=== PATIENT | female | born 1970 | race Caucasian/White ===

== ENCOUNTER 2024-05-04 09:34 | Emergency (ER) | payer BC, MEDICARE, SELFPAY ==
[2024-05-04 09:41] VITALS: BP 113/70; PULSE 103; RESP 18; TEMP 37.3; O2SAT 94
--- NOTE | 2024-05-04 09:56 | ED_ITS ---
HPI - General Adult General Date Seen: 05/04/24 Chief complaint: Abdominal Pain Stated complaint: Abdominal pain, vomiting Time Seen by Provider: 05/04/24 09:41 History of Present Illness HPI narrative: Patient is a 54-year-old woman here with her parents for evaluation of vomiting and diarrhea. She had abrupt onset of stomach cramping last night associated with multiple episodes of vomiting and she says watery stools every 15 minutes or so. No bloody stools. She does not have focal abdominal pain, she does have some generalized back pain along with stomach cramping. She has history of hysterectomy, denies other abdominal surgeries. She has not traveled outside the [place] no recent antibiotics, no specific ill exposures. Vomiting has settled down but she continues to have diarrhea. No urinary symptoms. Related Data Home Medications ?Medication ?Instructions ?Recorded ?Confirmed amitriptyline 50 mg tablet 45 mg PO DAILY 05/04/24 05/04/24 omeprazole magnesium 20 mg 20 mg PO DAILY 05/04/24 05/04/24 tablet,delayed release (Prilosec OTC) Allergies Allergy/AdvReac Type Severity Reaction Status Date / Time azithromycin (From Zithromax) AdvReac Intermediate Nausea Verified 05/04/24 09:39 Review of Systems Status of ROS: Reports: 10 or more systems reviewed and unremarkable except as noted in History and below [facility] Social History Smoking Status: Never smoker Do you use any of these nicotine containing products: None Second hand tobacco smoke exposure: No How often do you have a drink containing alcohol: never AUDIT-C Alcohol total score: 0 Non-prescribed substance use: denies use Exam Narrative: Exam Narrative: Vital signs reviewed In general, alert, nontoxic manage woman. Head: Normocephalic, atraumatic. Eyes: Sclera clear. Pupils equal and reactive. ENT: Mucous membranes somewhat dry. Neck: Supple without adenopathy. Heart: Mildly tachycardic, regular. Lungs: Clear. No increased work of breathing, crackles or wheezes. Abdomen: Soft, nontender to palpation. No rebound guarding or rigidity. Extremities: Well perfused, pulses intact. No significant edema. Neurologic: Alert, conversant. Speech fluent, face symmetric. Moves all extremities equally. Skin: Warm, dry well perfused. Affect: Normal. Const: Vital Signs, click to edit/add: Vital Signs - 24 hr 05/04/24 09:41 05/04/24 10:20 05/04/24 10:51 Temperature 99.2 F Pulse Rate [Pulse Oximeter] 103 H 89 96 Respiratory Rate 18 18 16 Blood Pressure [Ri ght Upper Arm] 113/70 110/90 H 128/71 Pulse Oximetry 94 93 96 Oxygen Delivery Me thod Room Air Room Air Room Air Course Course ED Course: Overall presentation is most suggestive of a gastroenteritis, other diagnostic considerations would include surgical problem such as appendicitis, other gastrointestinal is causes such as colitis or diverticulitis, pancreatitis, cholecystitis, obstruction unlikely given copious diarrhea, C diff colitis, among others. Will hydrate with normal saline, give some Zofran and Toradol for symptomatic relief. Labs pending. Given benign abdominal exam, at this time I think I would defer imaging based on lab results. Labs are reassuring. Her white blood cell count is normal, CRP is 1.9, metabolic panel LFTs unremarkable, lipase 72, UA negative. She is feeling improved after therapies. No further vomiting. Has had a couple of loose stools while here. For now, I think it is reasonable to let her go home with treatment for presumed viral gastroenteritis. Reviewed reasons to return such as severe or focal abdominal pain, high fevers, bloody stools or other worsening. Clear liquids today, advance as able. Prescribe some Zofran for home use if needed. Trial of Imodium would be reasonable as well, discussed that diarrhea may persist for up to 7-10 days, if not improving beyond that char[place] uld be seen again. Vital Signs Vital signs: Initial Vital Signs Temperature 99.2 F 05/04/24 09:41 Temperature Source Temporal Artery Scan 05/04/24 09:41 Pulse Rate 103 H 05/04/24 09:41 Respiratory Rate 18 05/04/24 09:41 Blood Pressure 113/70 05/04/24 09:41 Blood Pressure Mean 84 05/04/24 09:41 Pulse Oximetry 94 05/04/24 09:41 Oxygen Delivery Method Room Air 05/04/24 09:41 Vital Signs Temperature 99.2 F 05/04/24 09:41 Pulse Rate 103 H 05/04/24 09:41 Respiratory Rate 18 05/04/24 09:41 Blood Pressure 113/70 02/18/25 09:41 Pulse Oximetry 94 05/04/24 09:41 Oxygen Delivery Method Room Air 05/04/24 09:41 Temperature 99.2 F 05/04/24 09:41 Pulse Rate 96 05/04/24 10:51 Respiratory Rate 16 05/04/24 10:51 Blood Pressure 128/71 05/04/24 10:51 Pulse Oximetry 96 05/04/24 10:51 Oxygen Delivery Method Room Air 05/04/24 10:51 Medications Administered Medications: Discontinued Medications Generic Name Dose Route Start Last Admin Trade Name Freq PRN Reason Stop Dose Admin Sodium Chloride 1,000 mls @ 1,000 mls/hr 05/04/24 10:00 05/04/24 10:06 0.9 % Sodium Chloride 1000 Ml IV 05/04/24 10:59 1,000 mls/hr .Q1H DOMINICK Administration Ketorolac Tromethamine 15 mg 05/04/24 09:55 05/04/24 10:06 Ketorolac 15 Mg/Ml Inj IVP 05/04/24 09:56 15 mg ONCE ONE Administration Ondansetron HCl 4 mg 05/04/24 09:55 05/04/24 10:07 Ondansetron 2 Mg/Ml Inj IVP 05/04/24 09:56 4 mg ONCE ONE Administration Medical Decision Making Lab Data Lab results reviewed: Yes I reviewed the patient's lab results Labs: Lab Results 05/04/24 05/04/24 Range/Units 10:05 10:45 WBC 9.73 (4.50-11.00) K/uL RBC 4.72 (4.00-5.20) m/uL Hgb 14.8 (12.0-16.0) gm/dL Hct 42.9 (33.0-51.0) % MCV 91 (80-100) fL MCH 31 (26-34) pg MCHC 35 (32-36) gm/dL RDW Coeff of Maninder 11.6 (11.5-15.5) % Plt Count 262 (140-440) K/uL Neut % (Auto) 95.1 H (42.0-72.0) % Lymph % (Auto) 2.9 L (20-44) % [place] % (Auto) 1.7 (0.0-11.0) % Eos % (Auto) 0.0 (0.0-7.0) % Baso % (Auto) 0.2 (0.0-3.0) % Neut # (Auto) 9.30 H (1.7-7.0) K/uL Lymph # (Auto) 0.30 L (0.90-2.90) K/uL [place] # (Auto) 0.20 (0.00-0.90) K/UL Eos # (Auto) 0.00 (0.00-0.50) K/uL Baso # (Auto) 0.02 (0.00-0.30) K/uL Abs Immat Gran (auto) 0.01 (0.00-0.30) K/uL Imm/Tot Granulo (auto) 0.1 % Sodium 139 (135-149) mmol/L Potassium 3.9 (3.6-5.1) mmol/L Chloride 104 (96-114) mmol/L Carbon Dioxide 24 (20-32) mmol/L Anion Gap 11 (7-15) mEq/L BUN 22 (7-30) mg/dL Creatinine 0.9 (0.5-1.5) mg/dL Estimated GFR 76 ml/min Glucose 136 H (60-115) mg/dL Calcium 9.7 (8.4-10.6) mg/dL Total Bilirubin 0.6 (0.1-1.5) mg/dL Direct Bilirubin 0.2 (0.0-0.5) mg/dL AST 24 (12-35) U/L ALT 27 (4-35) U/L Alkaline Phosphatase 58 (40-150) U/L C-Reactive Protein 1.9 H (0.5-1.0) mg/dL Total Protein 7.9 (6.0-8.3) g/dL Albumin 4.9 (3.3-5.0) g/dL Lipase 72 (23-300) U/L Urine Color Yellow (Yellow) Urine Appearance Clear (Clear) Urine pH 5.5 (5.0-8.5) Ur Specific [place] 1.020 (1.000-1.030) Urine Protein Trace A (Negative) Urine Glucose (UA) Negative (Negative) Urine Ketones Negative (Negative) Urine Blood Trace-intact A (Negative) Urine Nitrite Negative (Negative) Urine Bilirubin Negative (Negative) Urine Urobilinogen 0.2 (0.2-1.0) Ur Leukocyte Esterase Negative (Negative) Urine RBC 0-2 (0-2) Urine WBC 0-2 (0-5) Ur Squamous Epith Cells Few (None-Few) Amorphous Sediment Moderate A (None) Urine Bacteria Few A (None) Urine Mucus Moderate A (None) Discharge Plan Discharge Clinical Impression: Gastroenteritis Patient Disposition: Home, Self-Care Instructions: Acute Nausea and Vomiting (DC), Acute Diarrhea (ED) Additional Instructions: Zofran if needed for further nausea/vomiting. I would recommend sticking with clear liquids today, advance diet as able. You can try a few doses of Imodium for diarrhea as long as you are not having high fevers, bloody stools or significant abdominal pain. If diarrhea persists beyond 7-10 days you should be seen again either in the ER in your clinic for stool testing. Return any time if you are significantly worse, have severe or focal abdominal pain, bloody st ools, high fevers etcetera. Prescriptions: No Action amitriptyline 50 mg tablet 45 mg PO DAILY omeprazole magnesium [Prilosec OTC] 20 mg tablet,delayed release (DR/EC) 20 mg PO DAILY Follow Up/Referrals: Glenny Koroma MD [Primary Care Provider] - Stand Alone Forms: [employer] Info Instructions
[2024-05-04] MEDS: KETOROLAC 15 MG/ML inj IVP (10:06)
[2024-05-04] MEDS: 0.9 % SODIUM CHLORIDE 1000 ml 1,000 ML IV (10:06)
[2024-05-04] MEDS: ONDANSETRON 2 MG/ML inj 4 MG IVP (10:07)
[2024-05-04 10:20] VITALS: BP 110/90; PULSE 89; RESP 18; O2SAT 93
[2024-05-04 10:24] LABS: Basophils Absolute Auto 0.02 K/uL (0.00-0.30); Basophils Percent Auto 0.2 % (0.0-3.0); Hematocrit 42.9 % (33.0-51.0); Hemoglobin* 14.8 gm/dL (12.0-16.0); Immature Granulocytes Abs Auto 0.01 K/uL (0.00-0.30); Immature Granulocytes Pct Auto 0.1 %; Lymphocytes Percent Auto 2.9 % (20-44); Mean Corpuscular HGB Conc 35 gm/dL (32-36); Mean Corpuscular Hemoglobin 31 pg (26-34); Mean Corpuscular Volume 91 fL (80-100); Monocytes Percent Auto 1.7 % (0.0-11.0); Neutrophils Percent Auto 95.1 % (42.0-72.0); Platelet Count* 262 K/uL (140-440); RDW Coefficient of Variation % 11.6 % (11.5-15.5); Red Blood Count 4.72 m/uL (4.00-5.20); White Blood Count* 9.73 K/uL (4.50-11.00)
[2024-05-04 10:28] LABS: Slide Review Reflex No
[2024-05-04 10:43] LABS: Albumin* 4.9 g/dL (3.3-5.0); Chloride* 104 mmol/L (96-114)
[2024-05-04 10:44] LABS: Potassium* 3.9 mmol/L (3.6-5.1); Sodium* 139 mmol/L (135-149)
[2024-05-04 10:46] LABS: Creatinine* 0.9 mg/dL (0.5-1.5); Estimated Glomerular Filt Rate 76 ml/min
[2024-05-04 10:47] LABS: Alanine Aminotransferase* 27 U/L (4-35); Alkaline Phosphatase* 58 U/L (40-150); Anion Gap 11 mEq/L (7-15); Aspartate Amino Transferase* 24 U/L (12-35); Bilirubin Direct* 0.2 mg/dL (0.0-0.5); Bilirubin Total* 0.6 mg/dL (0.1-1.5); Blood Urea Nitrogen* 22 mg/dL (7-30); Calcium* 9.7 mg/dL (8.4-10.6); Carbon Dioxide* 24 mmol/L (20-32); Glucose* 136 mg/dL (60-115); Lipase* 72 U/L (23-300); Total Protein* 7.9 g/dL (6.0-8.3)
[2024-05-04 10:49] LABS: C Reactive Protein* 1.9 mg/dL (0.5-1.0)
[2024-05-04 10:51] VITALS: BP 128/71; PULSE 96; RESP 16; O2SAT 96
[2024-05-04 11:15] LABS: Appearance Urine Clear (Clear); Bilirubin Urine Negative (Negative); Blood Urine Trace-intact (Negative); Color Urine Yellow (Yellow); Glucose Urine Negative (Negative); Ketones Urine Negative (Negative); Leukocyte Esterase Urine Negative (Negative); Nitrite Urine Negative (Negative); Protein Urine Trace (Negative); Urobilinogen Urine 0.2 (0.2-1.0); pH Urine 5.5 (5.0-8.5)
[2024-05-04 11:30] LABS: RBC Urine 0-2 (0-2); Squamous Epithelial Cell Urine Few (None-Few); WBC Urine 0-2 (0-5)
[2024-05-04 11:31] LABS: Amorphous Sediment Urine Moderate; Bacteria Urine Few; Mucus Urine Moderate
== END 2024-05-04 12:06 | disposition home or self-care (01) ==
PROVIDERS: Emergency Provider Emergency Medicine; PCP Family Medicine
DX: K52.9 Noninfective gastroenteritis and colitis, unspecified (principal)
CPT/HCPCS: 36415; 80048; 80076; 81001; 83690; 85025; 86140; 87086; 96361; 96374; 96375; 99284; J1885; J2405; J7030

== ENCOUNTER 2024-12-30 20:25 | Emergency (ER) | payer BC, MEDICARE, SELFPAY ==
--- OUTSIDE RECORDS SUMMARY | 2021-05-03 11:02 | XMS_ITS | Continuity of Care Document ---
Author Organization [facility] Address [address] [place] [phone] Phone Care Team Providers Care Clay Modeler Name Role Phone Will MD LEON, Jama Unavailable Unavailabl e Advance Directives Directive Yes / No Effective Date File Name No Information Encounters Encounter Description Practice Location Reason(s) For Visit Diagnoses Date Provider Providers Copied on Encounter [facility], [address] [place] [address], [id number], [place] tel:[phone] [facility] No Information Will Jama. [address] [facility] [place], [id number], [place]. tel:[phone] Family History Family Member Type Diagnosis Age At Onset No Information Payers Payer name Insurance type Covered constitution party ID Authoriza tion(s) No Information Social History Type Description Quantity Date Captured Comments Sex Female Smoking Status No Information Chief Complaint And Reason For Visit No Information Reason For Referral Reason For Referral No Information History Of Present Illness Encounter Date Complaint History Of Prese nt Illness No Information Functional Status Date Functional Assessmen t No Information Instructions Date Instruction Additional Infor mation No Information Assessments Type Assessment Date No Information Patient Care Teams Name Effective Dates (start - stop) Status Members No Information
--- OUTSIDE RECORDS SUMMARY | 2021-05-03 11:02 | XMS_ITS | Continuity of Care Document ---
Author Organization [facility] Address [address] [place] [phone] Phone Care Team Providers Care Hand Collator Name Role Phone Will MD LEON, Jama Unavailable Unavailabl e Advance Directives Directive Yes / No Effective Date File Name No Information Encounters Encounter Description Practice Location Reason(s) For Visit Diagnoses Date Provider Providers Copied on Encounter [facility], [address] [place] [address], [id number], [place] tel:[phone] [facility] No Information Will Jama. [address] [facility] [place], [id number], [place]. tel:[phone] Family History Family Member Type Diagnosis Age At Onset No Information Payers Payer name Insurance type Covered libertarian ID Authoriza tion(s) No Information Social History [...]
--- OUTSIDE RECORDS SUMMARY | 2024-11-29 13:55 | XMS_ITS | Encounter Summary ---
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 Name Role Phone Amanda Leslie MD Primary Care Provider [phone] Reason for Visit * Procedure/Equipment (Routine) - Incomplete Specialty Diagnoses / Procedures Referred By Contac t Referred To Contact Diagnoses Neck pain Procedures XR Cervical Spine 2 Views Ann Marie Mandujano MD [address] [place] [address] Phone: tel: fax: Referral ID Status Reason Start Date Expiration Date V isits Requested Visits Authorized [id number] Incomplete 11/29/2024 02/28/2026 1 1 Encounter Details Date Type Department Care Team (Late st Contact Info) Description 11/29/2024 1:55 PM CDT Ancillary Procedure [facility] [address] [place], [place] [address] Ann Marie Mandujano MD [address] [place] [id number] Neck pain Social History Tobacco Use Types Packs/Day Years Used Date Smoking Tobacco: Every Day Cigarettes Smokeless Tobacco: Never Alcohol Use Standard Drinks/Week Comments Yes 0 (1 standard drink = 0.6 oz pur e alcohol) socially Comments Unknown Sex and Gender Information Value Date Recorded Sex Assigned at Not on file Legal Sex Female 7:00 AM CDT Gender Identity Not on file Sexual Orientation Not on file documented as of this encounter Plan of Treatment Upcoming Encounters Date Type Department Care Team (Latest Contact Info) Description 01/06/2025 5:00 PM CDT Appointment [facility] [place] [address] [place] [address] [place] [address] [place] [address] 01/10/2025 1:00 PM CDT Appointment [facility] [place] [address] [place] [address] Ann Marie Mandujano MD [address] [place] [address] [place] [id number] 01/10/2025 3:00 PM CDT Appointment [facility] [place] [address] [place] [address] [place] [address] [address] [place] [address] 01/13/2025 5:00 PM CDT Appointment [facility] [place] [address] [place] [address] [place] [address] [place] [address] 02/08/2025 12:25 PM [facility] Hospital Encounter [facility] [address] [place] [address] Juan Shelley MD [address] [place] [address] [place] [address] 02/08/2025 12:25 PM [facility] - 02/08/2025 2:20 PM [facility] Surgery [facility] [address] [place] [address] Juan Shelley MD [address] [place] [address] [place] [address] Shoulder Arthroscopic Rotator Cuff Repair 02/15/2025 11:30 AM [facility] Appointment [facility] [place] [address] [place] [address] [place] [address] [address] [place] [address] 02/17/2025 2:45 PM [facility] Appointment [facility] [place] [address] [place] [address] [place] [address] [address] [place] [address] 02/18/2025 2:40 PM [facility] Appointment [facility] Orthopedic [facility] [address] [place] [address] Juan Shelley MD [address] [place] [address] 02/21/2025 3:00 PM [facility] Appointment [facility] [place] [address] [place] [address] [place] [address] [address] [place] [address] 02/24/2025 2:45 PM [facility] Appointment [facility] [place] [address] [place] [address] [place] [address] [address] [place] [address] 02/28/2025 3:00 PM [facility] Appointment [facility] [place] [address] [place] [address] [place] [address] [address] [place] [address] 03/03/2025 2:45 PM [facility] Appointment [facility] [place] [address] [place] [address] [place] [address] [address] [place] [address] 03/07/2025 3:00 PM [facility] Appointment [facility] [place] [address] [place] [address] [place] [address] [address] [address] 03/11/2025 3:00 PM [facility] Appointment [facility] [address] [address] [place] [address] [place] [address] 03/14/2025 3:00 PM [facility] Appointment [facility] [place] [address] [place] [address] [place] [address] [address] [place] [address] 03/18/2025 3:15 PM [facility] Appointment [facility] [place] [address] [place] [address] [place] [address] [place] [place] [address] 03/21/2025 3:00 PM [facility] Appointment [facility] [address] [address] [place] [address] [place] [address] 03/24/2025 2:45 PM [facility] Appointment [facility] [place] [address] [place] [address] [place] [address] [place] [address] 03/25/2025 2:40 PM [facility] Appointment [facility] Orthopedic [facility] [address] [place] [address] Juan Shelley MD [address] [place] [address] [place] [id number] 03/28/2025 3:00 PM [facility] Appointment [facility] [place] [address] [place] [address] [place] [address] [place] [address] 04/04/2025 3:00 PM [facility] Appointment [facility] [place] [address] [place] [address] [place] [address] [place] [address] 04/11/2025 3:00 PM [facility] Appointment [facility] [place] [address] [place] [address] [place] [address] [place] [address] 06/08/2025 2:40 PM CDT Appointment [facility] Orthopedic [facility] [address] [place] [address] Juan Shelley MD [address] [place] [address] Scheduled Procedures Name Priority Associated Diagnoses Date/Ti me ARTHROSCOPIC REPAIR ROTATOR CUFF SHOULDER SMALL Traumatic complete tear of right rotator cuff, initial encounter 02/08/2025 12:25 PM [employer] documented as of this encounter Procedures Procedure Name Priority Date/Time Associated Diagnosis Comments XR CERVICAL SPINE 2 VIEWS Routine 11/29/2024 2:03 PM CDT Neck pain documented in this encounter Results * XR Cervical Spine 2 Views (11/29/2024 2:03 PM CDT) Anatomical Region Laterality Modality Spine, C-Spine, Neck Digital Rad iography Narrative 11/29/2024 2:08 PM CDT EXAM: XR CERVICAL SPINE 2 VIEWS INDICATION: pain COMPARISON: None. FINDINGS: Cervical vertebral heights are preserved. No significant spondylolisthesis. Intervertebral disc heights also appear largely preserved. Mild multilevel facet arthropathy. Prevertebral soft tissues are grossly unremarkable. Signed by: Phil Boudreaux 11/29/2024 2:08 PM Procedure Note Phil Boudreaux MD - 11/29/2024 EXAM: XR CERVICAL SPINE 2 VIEWS INDICATION: pain COMPARISON: None. FINDINGS: Cervical vertebral heights are preserved. No significantspondylolisthesis. Intervertebral disc heights also appear largelypreserved. Mild multilevel facet arthropathy. Prevertebral soft tissuesare grossly unremarkable. Signed by: Phil Boudreaux 11/29/2024 2:08 PM Ann Marie Mandujano MD RAD GD Final Result documented in this encounter Visit Diagnoses Diagnosis Neck pain Cervicalgia Traumatic complete tear of right rotator cuff, initial encounter documented in this encounter Care Teams [employer] Ironworker Relationship Specialty Start Date End Date Amanda Leslie MD [address] [phone] PCP - General 05/04/15 documented as of this encounter
--- OUTSIDE RECORDS SUMMARY | 2024-11-29 14:00 | XMS_ITS | Encounter Summary ---
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 You can quickly schedule your appointment by signing in to your online account at [email or web address] or through the text message you may have received. You can also make an appointment by calling [phone]. We suggest you call your health insurance company about your coverage and benefits for this appointment. Question Answer Appointment Urgency? Non-Urgent Requested Services Evaluate and treat Reason for Visit General Physical Therapy May use saline for irrigation or cleansing Yes dexamethasone use Yes May check glucose per protocol (see policy link below) or if patient has symptoms? Yes Comments Cervical facet arthropathy Upper trap muscle spasm Rotator cuff Trial dry needling * Procedure/Equipment (Routine) - Incomplete Specialty Diagnoses / Procedures Referred By Contac t Referred To Contact Diagnoses Neck pain Procedures MR Shoulder Rt WO IV Cont Ann Marie Quintana MD [address] [place] [address] Phone: tel: fax: Referral ID Status Reason Start Date Expiration Date V isits Requested Visits Authorized [id number] Incomplete 11/29/2024 02/28/2026 1 1 * Procedure/Equipment (Routine) - Incomplete Specialty Diagnoses / Procedures Referred By Contac t Referred To Contact Diagnoses Neck pain Procedures MR Cervical Spine WO IV Cont Ann Marie Quintana MD [address] [place] [address] Phone: tel: fax: Referral ID Status Reason Start Date Expiration Date V isits Requested Visits Authorized [id number] Incomplete 11/29/2024 02/28/2026 1 1 * Procedure/Equipment (Routine) - Incomplete Specialty Diagnoses / Procedures Referred By Contac t Referred To Contact Diagnoses Neck pain Procedures XR Cervical Spine 2 Views Ann Marie Quintana MD [address] [place] [address] Phone: tel: fax: Referral ID Status Reason Start Date Expiration Date V isits Requested Visits Authorized [id number] Incomplete 11/29/2024 02/28/2026 1 1 Reason for Visit * Reason Comments Neck Pain Encounter Details Date Type Department Care Team (Late st Contact Info) Description 11/29/2024 2:00 PM CDT Office Visit [facility] [address] [place] [id number] Ann Marie Quintana MD [address] [place] [address] [place] [id number] Neck pain (Primary Dx) Social History Tobacco Use Types Packs/Day Years [...] on file documented as of this encounter Patient Instructions * Patient Instructions* Cira Mcnulty ATC - 11/29/2024 2:[address] Ann Marie Quintana MD Sports Medicine & Pediatric Sports Medicine Medication Requests: Prescriptions are not filled on weekends or on weekdays after 3:00 PM Trial magnesium glycinate 400mg at bed time Physical Therapy at [facility]/ -Call [phone] to schedule your appointment. -Trial Dry needling Follow up for MRI results documented in this encounter Progress Notes * Ann Marie Quintana MD - 11/29/2024 12:00 AM CDT Images from the original note were not included. NAME: DARIANA LUNA CSN: [id number] CLINIC NOTE DATE OF SERVICE: 11/29/2024 : 1970 CHIEF COMPLAINT: Neck and shoulder pain. HISTORY OF PRESENT ILLNESS: This 54-year-old female is here today with her sister for further evaluation of worsening neck and right shoulder pain for the last few weeks. There was no recent injury, but she does note doing a lot more physical work, moving cement blocks for retaining wall and pushing and ineffective wheelbarrow. She localizes pain along the base of the skull and radiating into theupper trapezius bilaterally. She says that it is not so much pain, but rather tightness. Because ofthis, she then also feels like she is experiencing more lightheadedness and dizziness. She is also feeling extremely fatigued. She attributes this to an exacerbation of her postconcussive symptoms. She saw her primary physician recently, who recommended a muscle relaxant, but she does not want to take this because she is concerned it would make her even more lightheaded as she tends to be sensitive to some medications. She says that her primary thought it could be a sinus infection, but Desireedoes not think so. She feels like it is more related to her underlying neck and shoulder problems and wants to get to the root of the problem. It seems worse when she is standing and moving around and when she flexes her head forward. She is also noticing more right shoulder pain localized over theposterior aspect as well as along the periscapular area. She notes pain when abducting her arm past90 degrees. There have been 2 episodes, where she had a near syncopal episode and fell to the floor. She says she feels woozy and constantly tired and that her neck feels stuck and restricted. There is no radiating pain down the arms and no associated numbness or tingling, though she does endorse some pain along the right thumb CMC joint or first extensor compartment. She has tried heat, ice, and [id number] pain medication. PHYSICAL EXAMINATION: GENERAL: Alert, in no apparent distress. MUSCULOSKELETAL: Neck: Forward head posture, full range ofmotion, but pain with forward flexion and at end ranges of motion, diffuse tenderness to palpation along midline cervical spine and mildly hypertonic upper trapezius. Spurling negative. Right shoulder: Full range of motion. Cuff strength intact, but pain with resisted testing of the supraspinatus. Tenderness to palpation of the proximal biceps. Speed's positive. Neer negative. Umana positive. SKIN: No rash. NEURO: Distal neurovascular exam normal including strength and sensation to light touch. IMAGING: Two views of the cervical spine obtained today and independently reviewed by me reveals: Cervical vertebral heights are preserved. No significant spondylolisthesis. Intervertebral disc heights also appear largely preserved. Mild multilevel facet arthropathy. Prevertebral soft tissues aregrossly unremarkable. MRI of the right shoulder previously obtained on 01/17/2020 reviewed by me again today reveals: MR Shoulder Rt WO IV Cont Details Reading Physician Reading Date Result Priority Juan Lee MD [phone] 01/17/2020 Routine Narrative & Impression IMPRESSION TECHNIQUE: Routine MRI of the right shoulder was performed without contrast. COMPARISON: 01/04/2020 radiograph FINDINGS: CORACOACROMIAL ARCH/AC JOINT: Mild degenerative arthrosis of the acromioclavicular joint. Type III acromion. There is no significant thickening of the coracoacromial or coracohumeral ligaments. Thereis no significant narrowing of the subacromial outlet or coracohumeral distance. ROTATOR CUFF: Supraspinatus tendinosis with tearing of its mid and posterior tendon insertion likely represents non-retracted full-thickness tearing measuring 1.1 cm anterior to posterior versus high-grade near full-thickness partial bursal surface tearing with very thin intact articular surface fibers (series 8, images 16 and 17). Infraspinatus, teres minor and subscapularis tendons are otherwise intact. There is no atrophy of the rotator cuff muscles. SUBACROMIAL/SUBDELTOID BURSA: Small to moderate amount of fluid. GLENOHUMERAL JOINT: There is no significant degenerative arthritis or focal cartilage defect. Thereis no significant joint effusion. No osteocartilaginous bodies are identified. LONG HEAD OF THE BICEPS TENDON/GLENOID LABRUM: Possible interstitial partial tearing of the long head biceps tendon in the bicipital groove without full- thickness tear. The biceps-labral anchor is intact. There is no evidence of labral tear. MARROW AND SOFT TISSUES: There is no abnormal signal. There is no soft tissue mass. IMPRESSION: 1. Supraspinatus tendinosis with tearing of its mid and posterior tendon insertion likely representing non-retracted full-thickness insertional tearing measuring 1.1 cm anterior to posterior but high-grade near full-thickness partial bursal surface tearing with very thin intact articular surface fibers cannot be excluded. 2. Small to moderate amount of fluid in the subacromial/subdeltoid bursa is nonspecific and may be seen with mild bursitis versus sequela of a full- thickness rotator cuff tendon tear. 3. Possible interstitial partial tearing of the long head biceps tendon without full-thickness tear. 4. Mild degenerative arthrosis of the acromioclavicular joint. ASSESSMENT: 1. New neck pain with cervical facet arthropathy. 2. Upper trapezius muscle spasm. 3. Right rotator cuff tendinopathy and partial tendon tearing. PLAN: 1. Discussed diagnosis and all treatment options. 2. Referral to Physical Therapy. She may benefit from dry needling and manual therapy. 3. Recommended obtaining an MRI of the cervical spine and an MRI of the right shoulder for further evaluation. Depending on findings, can consider injection options or surgical consultation if appropriate. 4. We also discussed the benefit of a muscle relaxant, but she is hesitant to try this as she fearsit might make her even more woozy. Physical therapy could help with any vestibular function that she is having that might be contributing to her symptoms, but I also asked that she follow up as scheduled with her primary to explore other cardiogenic or neurogenic etiologies for her near syncope anddizziness. Dariana feels that if she gets to the root of the problem of her neck and shoulder pain that the dizziness will improve. Instead, she might try some magnesium glycinate 400 mg at bedtime. We discussed that this may cause some drowsiness and looser stools, but overall should be well tolerated and might be helpful. 5. Continue activity as tolerated and symptomatic care measures as needed. ANN MARIE QUINTANA MD HLB/AQS /[id number] documented in this encounter Plan of Treatment Upcoming Encounters Date Type Department Care Team (Latest Contact Info) Description 01/06/2025 5:[address] [facility] [place] [address] [facility] [place] [address] [place] [address] [place] [address] 01/10/2025 1:[address] [facility] [place] [address] [place] [address] Ann Marie Quintana MD [address] [place] [address] [place] [address] 01/10/2025 3:00 PM CDT Appointment [facility] [address] [place] [address] [place] [address] [place] [address] 01/13/2025 5:00 PM CDT Appointment [facility] [address] [place] [address] [place] [address] [place] [id number] 02/08/2025 12:25 PM MANAGER CONFIGURATION Hospital Encounter [facility] [address] [place] [address] Juan Shelley MD [address] [place] [address] [place] [id number] 02/08/2025 12:25 PM MANAGER CONFIGURATION - 02/08/2025 2:20 PM MANAGER CONFIGURATION Surgery [facility] [address] [address] Juan Shelley MD [address] [place] [address] [place] [address] Shoulder Arthroscopic Rotator Cuff Repair 02/15/2025 11:30 AM MANAGER CONFIGURATION Appointment [facility] [address] [place] [address] [place] [address] [place] [address] 02/17/2025 2:45 PM MANAGER CONFIGURATION Appointment [facility] [address] [place] [address] [place] [address] [place] [address] 02/18/2025 2:40 PM MANAGER CONFIGURATION Appointment [facility] Orthopedic [facility] [address] [place] [address] Juan Shelley MD [address] [place] [address] 02/21/2025 3:00 PM MANAGER CONFIGURATION Appointment [facility] [address] [place] [address] [place] [address] [place] [address] 02/24/2025 2:45 PM MANAGER CONFIGURATION Appointment [facility] [address] [place] [address] [place] [address] [place] [address] 02/28/2025 3:00 PM MANAGER CONFIGURATION Appointment [facility] [id number] [place] [address] [place] [address] [place] [address] 03/03/2025 2:45 PM MANAGER CONFIGURATION Appointment [facility] [address] [place] [address] [place] [address] [place] [address] 03/07/2025 3:00 PM MANAGER CONFIGURATION Appointment [facility] [address] [place] [address] [place] [address] [place] [address] 03/11/2025 3:00 PM MANAGER CONFIGURATION Appointment [facility] [address] [place] [address] [place] [address] [place] [address] 03/14/2025 3:00 PM MANAGER CONFIGURATION Appointment [facility] [address] [place] [address] [place] [address] [place] [address] 03/18/2025 3:15 PM MANAGER CONFIGURATION Appointment [facility] [address] [place] [address] [place] [address] [place] [address] 03/21/2025 3:00 PM MANAGER CONFIGURATION Appointment [facility] [address] [place] [address] [place] [address] [place] [address] 03/24/2025 2:45 PM MANAGER CONFIGURATION Appointment [facility] [address] [place] [address] [place] [address] [place] [address] 03/25/2025 2:40 PM MANAGER CONFIGURATION Appointment [facility] Orthopedic [address] [address] Juan Shelley MD [address] [place] [address] 03/28/2025 3:00 PM MANAGER CONFIGURATION Appointment [facility] [address] [place] [address] [place] [address] [place] [address] 04/04/2025 3:00 PM MANAGER CONFIGURATION Appointment [facility] [address] [place] [address] [place] [address] [place] [address] 04/11/2025 3:00 PM MANAGER CONFIGURATION Appointment [facility] [address] [place] [address] [place] [address] [place] [address] 06/08/2025 2:[address] [facility] [place] [address] [place] [address] [place] [address] Juan Shelley MD [address] [place] [address] Scheduled Orders Name Type Priority Associated Diagnoses Orde r Schedule MR Cervical Spine WO IV Cont Imaging New Routine Neck pain Expected: 11/29/2024 (Approximate), Expires: 11/29/2025 MR Shoulder Rt WO IV Cont Imaging New Routine Neck pain Expected: 11/29/2024 (Approximate), Expires: 11/29/2025 Scheduled Procedures Name Priority Associated Diagnoses Date/Ti me ARTHROSCOPIC REPAIR ROTATOR CUFF SHOULDER SMALL Traumatic complete tear of right rotator cuff, initial encounter 02/08/2025 12:25 PM MANAGER CONFIGURATION Scheduled Referrals Name Type Priority Associated Diagnoses Orde r Schedule Physical Therapy Referral Routine Neck pain Ordered: 11/29/2024 documented as of this encounter Results * XR Cervical Spine [...] Signed by: Phil Boudreaux 11/29/2024 2:08 PM us Ann Marie Quintana MD RAD GD Final Result documented in this encounter Visit Diagnoses Diagnosis Neck pain- Primary Cervicalgia Neck pain Cervicalgia Traumatic complete tear of right rotator cuff, initial encounter documented in this encounter Care Teams Wood Casket Assembler Relationship Specialty Start Date End Date Amanda Leslie MD [address] [address] PCP - General 05/04/15 documented as of this encounter
--- OUTSIDE RECORDS SUMMARY | 2024-11-30 11:15 | XMS_ITS | Encounter Summary ---
[facility] Organization [facility] Address [address] [place] [address] Care Team Providers Care Concrete Batcher Name Role Phone Amanda Leslie MD Primary Care Provider [phone] Reason for Visit * Reason Comments Spine Cervical Encounter Details Date Type Department Care Team (Late st Contact Info) Description 11/30/2024 11:15 AM CDT Therapy [facility] [address] [address] [place] [address] [place] [address] Cervicalgia (Primary Dx) Social History Tobacco Use Types [...] on file documented as of this encounter Progress Notes * Jose A Doyle, PT - 11/30/2024 11:15 AM CDT Physical Therapy Evaluation Visit: 1 Payor: BCBS / Plan: [place]BS [place] / Product Type: Commercial / Visit Number: 1 Visit Diagnosis: Diagnosis and Associated Orders ICD-10-CM 1. Cervicalgia M54.2 Referring Diagnosis: Cervicalgia Date of Onset/Referral: Mid to late October 2024 Precautions/Barriers/Pertinent Medical History: see PMH Orders: Eval and treat SUBJECTIVE Reason for Visit: The patient is a very pleasant 54 y/o female referred to PT for neck pain . The patient notes onset of symptoms that began over the last 3 weeks unsure of etiology, but possibly from too much heavy lifting, such as 12x12 patio pavers and landscaping. She notes frontal SORTO pressure that is constant in nature. She notes issues with her vestibular system that affects her walking andbalance and the neck issues are intensifying those symptoms. PMH: see attachments CLOF: p! and/or difficulty w/ driving, reading, rec activities, lifting PLOF: Independent with ADLs, able to walk community distances Medications: Medication list has been reviewed. 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 Observation: normal, received sitting in NAD, AxOx3 Screening: Negative for referred pain patterns from shoulder or TMJ area Cervical ROM: Flexion 80 Extension 50 Sidebending Right 30 Sidebending Left 30 Rotation Right 80 Rotation Left 80 Thoracolumbar ROM: (*with pain) Flexion 30 Extension 20 Sidebending Right 30 Sidebending Left 30 Rotation Right 30 Rotation Left 30 * = pain Cervical Strength: Supine neck flexion (tuck and lift) endurance test: nt seconds Neurological Screen: Negative for dermatomes, bicipital reflex t and C4 weakness myotomes Flexibility: WNL Joint mobility: WFL for upper mid and lower cervical segments Palpation: Tenderness to: bilat. UT and suboccipitals Proprioception: Not tested Special Tests: Distraction: Negative Spurling A: Negative Spurling B: Negative TODAY'S INTERVENTION/CHARGES: Physical Therapy Evaluation was completed and the patient was educated on the condition, planned therapy intervention and expectations from treatment. Manual Therapy performed to reduce pain and improve tissue and joint mobility Ther Act performed to improve tolerance, performance, and mechanics with functional activities, improve ADLs, compensatory training, safety procedures, and instructions in use of assistive technologydevices/adaptive equipment along with improve knowledge of safety and HEP compliance and efficiency Neuro Re-ed performed to improve balance, coordination, proprioception, muscle control/activation Ther Ex performed to improve ROM, flexibility, strength, and endurance Therapeutic exercise x 8 minutes: Educated and partial performance in [employer] Regimen below Manual therapy x 8 minutes: + SOR, cervical distraction gentle, STM to bilat. UT Dry Needlin minutes Pt treatment also included use of dry needling to assist with resolution of impairments as listed in objective findings and meeting patient goals with the intent to Decrease Pain, Improve Flexibility, and Well tolerated. Patient was screened for precautions and contraindications. Procedure, risks, and benefits were all explained. Skin was intact pre-treatment and prepped appropriately for clean procedure. Verbal consent and PAW were signed prior to intervention. Location Targeted: bilat. UT/back Muscles targeted: bilat. UT and suboccipitals bilaterally E-Stim used: no Other interventions details: no Response to Treatment: RESPONSE: Decrease Pain and Well tolerated Pt was advised that if feelings of light headedness, difficulty breathing, chest pain, or any otherconcerning symptoms after treatment, to go to ER. Education/Handouts: see below Provided instruction for the exercises noted and performed in clinic with verbal and tactile cues for proper technique. Handouts were issued for exercise in the HEP and reviewed with repetitions, sets, and frequency. Educated patient on rationale for selected exercises. Patient questions were addressed. Home Program: Access Code: [email or web address] URL: [email or web address] Date: 11/30/2024 Prepared by: Meagan Exercises - Shoulder Rolls in Sitting - 1 x daily - 5 x weekly - 2 sets - 10 reps - 5-8 hold - Seated Cervical Rotation AROM - 1 x daily - 5 x weekly - 2 sets - 10 reps - 5- 8 hold - Seated Scapular Retraction - 1 x daily - 5 x weekly - 2 sets - 10 reps - 5-8 hold - Seated Chin Tuck with Neck Elongation - 1 x daily - 5 x weekly - 2 sets - 10 reps - 5-8 hold Timed Charges (Minutes): Timed Charges (Minutes): 29537 - Therapeutic Exercise: 8 06510 - Manual Therapy: 8 Timed Code Treatment Minutes: 16 Total Treatment Minutes: 45 Timed Code Treatment Minutes: 16 Total Treatment Minutes: 45 ASSESSMENT Therapist Impression/Summary: The patient is a very pleasant 54 y/o female diagnosed with cervicalgia. Overall patient prognosis is good potential for achieving LTGs. Patient deficits include, but not limited to: pain, ROM, Strength, balance, flexibility all of which contribute to functional deficits and justify the need for skilled rehabilitation. The treatment plan is too complex to be performed by the patient and/or caregiver for the following reasons: skilled manual therapy, exercise and ADL instruction requiring the supervision, knowledge, skills and expertise of a Physical Therapist. The patient's services are medically necessary. Accepted Practice Standards: Amount, duration, frequency and type of treatment is reasonable under accepted standards of practice. Informed consent: Patient was informed of the recommended treatment, diagnosis, material risks, alternative treatments, treatment goals and the patient did give informed consent to the treatment outlined. All questions wereaddressed and answered to the patient's satisfaction. Prognosis: very good Complexity: Based on the following:?no personal factors or comorbidities that impact care (Low), 1-2 elements addressed from body structures and function - see objective section and functional limitations (Low), and stable and uncomplicated presentation (Low), this is a Low Complexity evaluation. Goals/Functional Outcomes (to be met by end of therapy, noted in PLAN below): Patient will be independent with home exercise program for improved self management. Patient will improve Neck Disability Index score from 46% to less than 10% (DUC -10%, lower score indicates less disability) indicating improvement in general function and decreased symptoms. Patient Independent w/ HEP. Patient increase 1/2 to 1 MMT grade of DNF for improved spinal stability for desk work. Patient increase 1 MMT grade of scapular stabilizers for improved postural stability while performing dynamic ADLs. Patient reduce pain by 50% to improve sleep and tolerance for static postures. Patient reduce pain by 75-100% to improve tolerance for dynamic postures PLAN Recommendations/Plan for Next Visit: f/u on HEP, and response to FDN PT Frequency/Duration: 1-2x/week for 12 visits Planned Intervention/Education: Therapeutic Activity (38119), Neuromuscular Re-Education (91867), Therapeutic Exercise (47244), Manual Therapy (56559), Self-Care/Home Management (55389) Informed Consent: Risks, benefits and alternatives to treatment have been explained. Patient and/orfamily in agreement with care plan. The clinician's signature certifies medical necessity for the treatment plan above. [1] No past medical history on file. [2] Past Surgical History: Procedure Laterality Date ANTERIOR CRUCIATE LIGAMENT REPAIR HYSTERECTOMY KNEE SURGERY TOE SURGERY Cosigned by Ann Marie Mandujano MD at 11/30/2024 12:38 PM CDT documented in this encounter Plan of Treatment Upcoming Encounters Date Type Department Care Team (Latest Contact Info) Description 01/06/2025 5:00 PM CDT Appointment [facility] [address] [address] [place] [address] [place] [address] 01/10/2025 1:00 PM CDT Appointment [facility] [place] [address] [place] [address] Ann Marie Mandujano MD [address] [facility] [place]ETH [place] [address] 01/10/2025 3:00 PM CDT Appointment [facility] [place] [address] [place] [address] [place] [address] [place] [address] 01/13/2025 5:00 PM CDT Appointment [facility] [place] [address] [place] [address] [place] [address] [address] [place] [address] 02/08/2025 12:25 PM SHEET METAL OPERATOR Hospital Encounter [facility] [address] [place] [address] Juan Shelley MD [address] [place] [address] [place] [address] 02/08/2025 12:25 PM SHEET METAL OPERATOR - 02/08/2025 2:20 PM SHEET METAL OPERATOR Surgery [facility] [address] [place] [address] Juan Shelley MD [address] [place] [address] [place] [id number] Shoulder Arthroscopic Rotator Cuff Repair 02/15/2025 11:30 AM SHEET METAL OPERATOR Appointment [facility] [place] [address] [place] [address] [place] [address] [place] [address] 02/17/2025 2:45 PM SHEET METAL OPERATOR Appointment [facility] [place] [address] [place] [address] [place] [address] [address] [place] [address] 02/18/2025 2:40 PM SHEET METAL OPERATOR Appointment [facility] [place] [address] [place] [address] Juan Shelley MD [address] [place] [address] [place] [address] 02/21/2025 3:00 PM SHEET METAL OPERATOR Appointment [facility] [place] [address] [place] [address] [place] [address] [place] [address] 02/24/2025 2:45 PM SHEET METAL OPERATOR Appointment [facility] [address] [address] [place] [address] [place] [address] 02/28/2025 3:00 PM SHEET METAL OPERATOR Appointment [facility] [address] [address] [place] [address] [place] [address] 03/03/2025 2:45 PM SHEET METAL OPERATOR Appointment [facility] [address] [address] [place] [address] [place] [address] 03/07/2025 3:00 PM SHEET METAL OPERATOR [facility]ointment [facility] [address] [address] [place] [address] [place] [address] 03/11/2025 3:00 PM SHEET METAL OPERATOR Appointment [facility] [address] [address] [place] [address] [address] [place] [place] [address] 03/14/2025 3:00 PM SHEET METAL OPERATOR Appointment [facility] [address] [address] [place] [address] [address] [place] [address] 03/18/2025 3:15 PM SHEET METAL OPERATOR Appointment [facility] [place] [address] [place] [address] [place] [address] [address] [place] [address] 03/21/2025 3:00 PM SHEET METAL OPERATOR Appointment [facility] [address] [place] [address] [place] [address] [address] [place] [address] 03/24/2025 2:45 PM SHEET METAL OPERATOR Appointment [facility] [address] [place] [address] [place] [address] [address] [place] [address] 03/25/2025 2:40 PM SHEET METAL OPERATOR Appointment [facility] Orthopedic [facility] [address] [place] [address] Juan Shelley MD [address] [facility] [place] [address] 03/28/2025 3:00 PM SHEET METAL OPERATOR Appointment [facility] [place] [address] [place] [address] [place] [address] [address] [place] [address] 04/04/2025 3:00 PM SHEET METAL OPERATOR Appointment [facility] [place] [address] [place] [address] [place] [address] [address] [place] [address] 04/11/2025 3:00 PM SHEET METAL OPERATOR Appointment [facility] [place] [address] [facility] LI[place] [address] [place] [address] [address] [place] [address] 06/08/2025 2:40 PM CDT Appointment [facility] [place] [address] [place] [address] Juan Shelley MD [address] [facility] [place] [address] Scheduled Procedures Name Priority Associated Diagnoses Date/Ti me ARTHROSCOPIC REPAIR ROTATOR CUFF SHOULDER SMALL Traumatic complete tear of right rotator cuff, initial encounter 02/08/2025 12:25 PM SHEET METAL OPERATOR documented as of this encounter Visit Diagnoses Diagnosis Cervicalgia- Primary Traumatic complete tear of right rotator cuff, initial encounter documented in this encounter Care Teams Concrete Batcher Relationship Specialty Start Date End Date Amanda Leslie MD [address] [phone] PCP - General 05/04/15 documented as of this encounter
--- OUTSIDE RECORDS SUMMARY | 2024-12-04 | XMS_ITS | Encounter Summary ---
Author Organization [facility] Address [address] [address] Care Team Providers Care Senior Director Insight Name Role Phone Amanda Leslie MD Primary Care Provider [phone] Encounter Details Date Type Department Care Team (Late st Contact Info) Description 12/04/2024 Ancillary Procedure Radiology PACS [address] [place] [address] Provider, Foreign Images [address] [place] [address] Social History Tobacco Use Types Packs/Day Years [...] 5:00 PM CDT Appointment [facility] [place] [address] [facility] [place] [address] [place] [address] [place] [id number] 01/10/2025 1:00 PM CDT Appointment [facility] [place] [address] [place], [place] [phone] Ann Marie Mandujano MD [address] [facility] [place] [address] 01/10/2025 3:00 PM CDT Appointment [facility] [place] [address] [place] [address] [place] [address] [address] [place] [address] 01/13/2025 5:00 PM CDT Appointment [facility] [place] [address] [place] [address] [place] [address] [place] [address] 02/08/2025 12:25 PM AUTOMATIC SPOOLER OPERATOR Hospital Encounter [facility] [address] [place] [address] Juan Shelley MD [address] [facility] [place] [address] 02/08/2025 12:25 PM AUTOMATIC SPOOLER OPERATOR - 02/08/2025 2:20 PM AUTOMATIC SPOOLER OPERATOR Surgery [facility] [address] [place] [address] Juan Shelley MD [address] [facility] [place] [address] Shoulder Arthroscopic Rotator Cuff Repair 02/15/2025 11:30 AM AUTOMATIC SPOOLER OPERATOR Appointment [facility] [place] [address] [place] [address] [place] [address] [address] [place] [address] 02/17/2025 2:45 PM AUTOMATIC SPOOLER OPERATOR Appointment [facility] [place] [address] [place] [address] [place] [address] [address] [place] [address] 02/18/2025 2:40 PM AUTOMATIC SPOOLER OPERATOR Appointment [facility] [place] [address] [facility] [address] Juan Shelley MD [address] [facility] [place] [address] 02/21/2025 3:00 PM AUTOMATIC SPOOLER OPERATOR Appointment [facility] [place] [address] [place] [address] [place] [address] [address] [place] [address] 02/24/2025 2:45 PM AUTOMATIC SPOOLER OPERATOR Appointment [facility] [place] [address] [place] [address] [place] [address] [address] [place] [address] 02/28/2025 3:00 PM AUTOMATIC SPOOLER OPERATOR Appointment [facility] [place] [address] [place] [address] [place] [address] [address] [place] [address] 03/03/2025 2:45 PM AUTOMATIC SPOOLER OPERATOR Appointment [facility] [place] [address] [place] [address] [place] [address] [address] [place] [address] 03/07/2025 3:00 PM AUTOMATIC SPOOLER OPERATOR Appointment [facility] [place] [address] [place] [address] [place] [address] [address] [place] [address] 03/11/2025 3:00 PM AUTOMATIC SPOOLER OPERATOR Appointment [facility] [place] [address] [place] [address] [place] [address] [address] [place] [address] 03/14/2025 3:00 PM AUTOMATIC SPOOLER OPERATOR Appointment [facility] [place] [address] [place] [address] [place] [address] [address] [place] [address] 03/18/2025 3:15 PM AUTOMATIC SPOOLER OPERATOR Appointment [facility] [place] [address] [place] [address] [place] [address] [address] [place] [address] 03/21/2025 3:00 PM AUTOMATIC SPOOLER OPERATOR Appointment [facility] [place] [address] [place] [address] [place] [address] [address] [place] [address] 03/24/2025 2:45 PM AUTOMATIC SPOOLER OPERATOR Appointment [facility] [place] [address] [place] [address] [place] [address] [address] [place] [address] 03/25/2025 2:40 PM AUTOMATIC SPOOLER OPERATOR Appointment [facility] [place] [address] [place], [place] [address] [address] Juan Shelley MD [address] [facility] [place] [address] 03/28/2025 3:00 PM AUTOMATIC SPOOLER OPERATOR Appointment [facility] [place] [address] [place] [address] [place] [address] [place] [address] 04/04/2025 3:00 PM AUTOMATIC SPOOLER OPERATOR Appointment [facility] [place] [address] [place] [address] [place] [address] [place] [address]267 04/11/2025 3:00 PM AUTOMATIC SPOOLER OPERATOR Appointment [facility] [place] [address] [place] [address] [place] [address] [place] [address] 06/08/2025 2:40 PM CDT Appointment [facility] Orthopedic [facility] [address] [place] [address] Juan Shelley MD [address] [facility] [place] [address] Scheduled Procedures Name Priority Associated Diagnoses Date/Ti me ARTHROSCOPIC REPAIR ROTATOR CUFF SHOULDER SMALL Traumatic complete tear of right rotator cuff, initial encounter 02/08/2025 12:25 PM AUTOMATIC SPOOLER OPERATOR documented as of this encounter Procedures Procedure Name Priority Date/Time Associated Diagnosis Comments FOREIGN IMAGE(S) MR SHOULDER RT Routine 12/04/2024 12:00 AM CDT documented in this encounter Visit Diagnoses Not on filedocumented in this encounter Care Teams Senior Director Insight Relationship Specialty Start Date End Date Amanda Leslie MD [address] [phone] PCP - General 05/04/15 documented as of this encounter
--- OUTSIDE RECORDS SUMMARY | 2024-12-04 00:05 | XMS_ITS | Encounter Summary ---
Author Organization [facility] Address [address] [place] [address] Care Team Providers Care Pick Out Hand Name Role Phone Amanda Leslie MD Primary Care Provider [phone] Encounter Details Date Type Department Care Team (Late st Contact Info) Description 12/04/2024 12:05 AM CDT Ancillary Procedure Radiology PACS [address] [place] [address] Provider, Foreign Images [address] [place] [address] Social History Tobacco Use Types Packs/Day Years [...] 5:00 PM CDT Appointment [facility] [place] [address] [facility] [place] [address] [place] [address] [place] [address] 01/10/2025 1:00 PM CDT Appointment [facility] 8[address] [place] [address] Ann Marie Brandt MD [address] [place] [address] 01/10/2025 3:00 PM CDT Appointment [facility] [place] [address] [place] [address] [place] [address] [place] [address] 01/13/2025 5:00 PM CDT Appointment [facility] [place] [address] [place] [address] [place] [address] [place] [address] 02/08/2025 12:25 PM SUPERVISOR MOLD YARD Hospital Encounter [facility] [address] [address] Juan Shelley MD [address] [place] [address] 02/08/2025 12:25 PM SUPERVISOR MOLD YARD - 02/08/2025 2:20 PM SUPERVISOR MOLD YARD Surgery [facility] [address] [address] Juan Shelley MD [address] [place] [address] [place] [address] Shoulder Arthroscopic Rotator Cuff Repair 02/15/2025 11:30 AM SUPERVISOR MOLD YARD Appointment [facility] [place] [address] [place] [address] [place] [address] [place] [address] 02/17/2025 2:45 PM SUPERVISOR MOLD YARD Appointment [facility] [place] [address] [place] [address] [place] [address] [place] [address] 02/18/2025 2:40 PM SUPERVISOR MOLD YARD Appointment [facility] [place] [address] [facility] [address] Juan Shelley MD [address] [facility] [place] [address] 02/21/2025 3:00 PM SUPERVISOR MOLD YARD Appointment [facility] [place] [address] [place] [address] [place] [address] [place] [address] 02/24/2025 2:45 PM SUPERVISOR MOLD YARD Appointment [facility] [place] [address] [place] [address] [place] [address] [place] [address] 02/28/2025 3:00 PM SUPERVISOR MOLD YARD Appointment [facility] [place] [address] [place] [address] [place] [address] [place] [address] 03/03/2025 2:45 PM SUPERVISOR MOLD YARD Appointment [facility] [place] [address] [place] [address] [place] [address] [place] [address] 03/07/2025 3:00 PM SUPERVISOR MOLD YARD Appointment [facility] [place] [address] [place] [address] [place] [address] [place] [address] 03/11/2025 3:00 PM SUPERVISOR MOLD YARD Appointment [facility] [place] [address] [place] [address] [place] [address] [place] [address] 03/14/2025 3:00 PM SUPERVISOR MOLD YARD Appointment [facility] [place] [address] [place] [address] [place] [address] [place] [address] 03/18/2025 3:15 PM SUPERVISOR MOLD YARD Appointment [facility] [place] [phone] [place] [address] [place] [address] [place] [address] 03/21/2025 3:00 PM SUPERVISOR MOLD YARD Appointment [facility] [place] [address] [place] [address] [place] [address] [place] [address] 03/24/2025 2:45 PM SUPERVISOR MOLD YARD Appointment [facility] [place] [address] [place] [address] [place] [address] [place] [address] 03/25/2025 2:40 PM SUPERVISOR MOLD YARD Appointment [facility] [place] [address] [place] [address] [place] [address] Juan Shelley MD [address] [facility] LIZBETH [place] [address] 03/28/2025 3:00 PM SUPERVISOR MOLD YARD Appointment [facility] [place] [address] [place] [address] [place] [address] [place] [address] 04/04/2025 3:00 PM SUPERVISOR MOLD YARD Appointment [facility] [place] [address] [place] [address] [place] [address] [place] [address] [place] 966[address] 04/11/2025 3:00 PM SUPERVISOR MOLD YARD Appointment [facility] [place] [address] [place] [address] [place] [address] [place] [address] [place] 8[address] 06/08/2025 2:40 PM CDT Appointment [facility] Orthopedic [facility] [address] [place] [address] [id number] Juan Shelley MD [address] [facility] [place] [address] Scheduled Procedures Name Priority Associated Diagnoses Date/Ti me ARTHROSCOPIC REPAIR ROTATOR CUFF SHOULDER SMALL Traumatic complete tear of right rotator cuff, initial encounter 02/08/2025 12:25 PM SUPERVISOR MOLD YARD documented as of this encounter Procedures Procedure Name Priority Date/Time Associated Diagnosis Comments FOREIGN IMAGE(S) MR C-SPINE WO IV CONT Routine 12/04/2024 12:05 AM CDT documented in this encounter Visit Diagnoses Not on filedocumented in this encounter Care Teams Pick Out Hand Relationship Specialty Start Date End Date Amnada Leslie MD [address] [phone] PCP - General 05/04/15 documented as of this encounter
--- OUTSIDE RECORDS SUMMARY | 2024-12-06 15:00 | XMS_ITS | Encounter Summary ---
Author Organization [facility] Address [address] [place] [address] Care Team Providers Care Insulation Worker Name Role Phone Amanda Leslie MD Primary Care Provider [phone] Reason for Visit * Reason Comments Spine Cervical Encounter Details Date Type Department Care Team (Late st Contact Info) Description 12/06/2024 3:00 PM CDT Therapy [facility] [address] [address] [place] [address] [place] [address] Cervicalgia (Primary Dx) Social History Tobacco Use [...] as of this encounter Progress Notes * Mejia Cameron, PT - 12/06/2024 3:00 PM CDT Physical Therapy follow up Payor: BCBS / Plan: [employer] [place] / Product Type: Commercial / Visit Number: 2 Visit Diagnosis: Diagnosis and Associated Orders ICD-10-CM [...] for a full-list of medications Pain: Current: 06/24 and Worst: 09/23 Patient Report: Pt feels her neck is a little better, but still an issue. She notes the dry needling caused her to hurt for about a week after that. Pt noting some vestibular symptoms as well that she feels is related to the flare up of the neck. OBJECTIVE Items left blank were not deemed necessary at the time of assessment. Observation: normal, received sitting in NAD, AxOx3 Screening: Negative for referred pain patterns from shoulder or TMJ area Cervical ROM: Flexion 71 Extension 45 Sidebending Right 30 Sidebending Left 23 Rotation Right 68 Rotation Left 65 Thoracolumbar ROM: (*with pain) Flexion Extension Sidebending Right Sidebending Left Rotation Right Rotation Left * = pain Cervical Strength: Supine neck flexion (tuck and lift) endurance test: nt seconds Neurological Screen: Negative for dermatomes, bicipital reflex t and C4 weakness myotomes Flexibility: WNL Joint mobility: WFL for upper mid and lower cervical segments Palpation: Tenderness to: bilat. UT and suboccipitals Proprioception: Not tested Special Tests: Distraction: Negative Spurling A: Negative Spurling B: Negative TODAY'S INTERVENTION/CHARGES: Therapeutic exercise x 10 minutes: - Shoulder rolls in sitting 2x10 CW and CCW - Bent over row x10 each side with body weight 2x15 each side with 7# dumbbell - Attempted bent over horizontal abduction, pt complained of superior shoulder pain Manual therapy x 25 minutes: -Suboccipital release -STM/TPR B upper traps, lavator scapulae -CPA C2-C6 Grade 1-2 to reduce pain -Lateral glide B C2-C6 Grade 1-2 to reduce pain Neuromuscular re-education x 8 minutes: - Seated chin tuck 10x5 sec, 10x5 sec each in ~20 deg side bending - Cervical ROM rotation 5x5 sec, pt cued for concurrent chin tuck, avoidance of painful end range Education/Handouts: see below Provided instruction for the exercises noted and performed in clinic with verbal and tactile cues for proper technique. Handouts were issued for exercise in the HEP and reviewed with repetitions, sets, and frequency. Educated patient on rationale for selected exercises. Patient questions were addressed. Home Program: Access Code: [email or web address] URL: [email or web address] Date: 12/06/2024 Prepared by: Shaun Cameron Exercises - Shoulder Rolls in Sitting - [...] - 10 reps - 5-8 hold - Standing Bent Over Single Arm Scapular Row with Table Support - 1 x daily - 5 x weekly - 2 sets -12 reps - Standing Cervical Retraction with Sidebending - 1 x daily - 7 x weekly - 2 sets - 10 reps - 5-8 sec hold Timed Charges (Minutes): 26943 - Neuromuscular Re-Education: 8 40842 - Therapeutic Exercise: 10 96291 - Manual Therapy: 25 Timed Code Treatment Minutes: 43 Total Treatment Minutes: 43 ASSESSMENT Therapist Impression/Patient Response: Pt continuing to note vestibular symptoms with head motions,still having tightness in her neck with all motions. Pt tolerating chin tuck with improved ROM, enough to progress with addition of side bending. Pt benefiting from additional challenge for parascapular retraining. Pt continues to note headache consistent with tension type pattern along with muscletightness within suboccipital region that benefited from manual techniques. Patient continues to benefit from skilled therapy. Goals/Functional Outcomes (to be met by end [...] for 12 visits Planned Intervention/Education: Therapeutic Activity (12657), Neuromuscular Re-Education (29977), Therapeutic Exercise (67026), Manual Therapy (87353), Self-Care/Home Management (58339) Informed Consent: Risks, benefits and alternatives to treatment have been explained. Patient and/orfamily in agreement with care plan. The clinician's signature certifies medical necessity for the treatment plan above. Cosigned by Ann Marie Mandujano MD at 12/13/2024 8:44 AM CDT documented in this encounter Plan of Treatment Upcoming Encounters Date Type Department Care Team (Latest Contact Info) Description 01/06/2025 5:00 PM CDT Appointment [facility] [place] [address] [facility] [place] [phone] [place] [address] [place] [address] 01/10/2025 1:00 PM CDT Appointment [facility] [place] [address] [place] [address] LIZBETH [place] 060051 Ann Marie Mandujano MD [address] [facility] LIZBETH [place] [id number] 01/10/2025 3:00 PM CDT Appointment [facility] [place] [address] [place] [address] [place] [address] [place] [address] 01/13/2025 5:00 PM CDT Appointment [facility] [place] [address] [place] [address] [place] [address] [place] 964957 02/08/2025 12:25 PM DIRECTOR HOUSEKEEPING Hospital Encounter [facility] 8100 [place] [address] Juan Shelley MD [address] [facility] [address] 02/08/2025 12:25 PM DIRECTOR HOUSEKEEPING - 02/08/2025 2:20 PM DIRECTOR HOUSEKEEPING Surgery [facility] [address] [place] [address] Juan Shelley MD [address] [place] [address] [place] [address] Shoulder Arthroscopic Rotator Cuff Repair 02/15/2025 11:30 AM DIRECTOR HOUSEKEEPING Appointment [facility] [place] [address] [place] [address] [place] [address] [place] [address] 02/17/2025 2:45 PM DIRECTOR HOUSEKEEPING Appointment [facility] [place] [address] [place] [address] [place] [address] [place] [address] 02/18/2025 2:40 PM DIRECTOR HOUSEKEEPING Appointment [facility] [address]100 [place] [address] Juan Shelley MD [address] [facility] [place]ETH [place] [address] 02/21/2025 3:00 PM DIRECTOR HOUSEKEEPING Appointment [facility] [place] [address] [place] [address] [place] [address] [place] [address] 02/24/2025 2:45 PM DIRECTOR HOUSEKEEPING [facility] [place] [address] [place] [address] [place] [address] [place] [address] 02/28/2025 3:00 PM DIRECTOR HOUSEKEEPING Appointment [facility] [place] [address] [place] [address] [place] [address] [place] [address] 03/03/2025 2:45 PM DIRECTOR HOUSEKEEPING Appointment [facility] [place] [address] [place] [address] [place] [address] [place] [address] 03/07/2025 3:00 PM DIRECTOR HOUSEKEEPING Appointment [facility] [place] [address] [place] [address] [place] [address] [place] [address] 03/11/2025 3:00 PM DIRECTOR HOUSEKEEPING Appointment [facility] [place] [address] [place] [address] [place] [address] [place] [address] 03/14/2025 3:00 PM DIRECTOR HOUSEKEEPING Appointment [facility] [place] [phone] [place] [address] [place] [address] [place] [address] 03/18/2025 3:15 PM DIRECTOR HOUSEKEEPING Appointment [facility] [place] [address] [place] [address] [place] [address] [place] [address] 03/21/2025 3:00 PM DIRECTOR HOUSEKEEPING Appointment [facility] [place] [address] [place] [address] [place] [address] [place] [address] 03/24/2025 2:45 PM DIRECTOR HOUSEKEEPING Appointment [facility] [address] [address] [place] [address] [place] [address] 03/25/2025 2:40 PM DIRECTOR HOUSEKEEPING Appointment [facility] [place] [address] [place] [address] [place] [address] Juan Shelley MD [address] [facility] [address] 03/28/2025 3:00 PM DIRECTOR HOUSEKEEPING Appointment [facility] [place] [address] [place] [address] [place] [address] [place] 1910[address] 04/04/2025 3:00 PM DIRECTOR HOUSEKEEPING Appointment [facility] [place] [address] [place] [address] [place] [address] [place] [address] 04/11/2025 3:00 PM DIRECTOR HOUSEKEEPING Appointment [facility] [place] [address] [place] [address] [place] [address] [place] [address] [place] 118207 06/08/2025 2:40 PM CDT Appointment [facility] [address] [place] [address] Juan Shelley MD [address] [place], [place] [address], [place] [address] Scheduled Procedures Name Priority Associated Diagnoses Date/Ti me ARTHROSCOPIC REPAIR ROTATOR CUFF SHOULDER SMALL Traumatic complete tear of right rotator cuff, initial encounter 02/08/2025 12:25 PM DIRECTOR HOUSEKEEPING documented as of this encounter Visit Diagnoses Diagnosis Cervicalgia- Primary Traumatic complete tear of right rotator cuff, initial encounter documented in this encounter Care Teams Insulation Worker Relationship Specialty Start Date End Date Amanda Leslie MD [address] [phone] PCP - General 05/04/15 documented as of this encounter
--- OUTSIDE RECORDS SUMMARY | 2024-12-13 09:45 | XMS_ITS | Encounter Summary ---
Author Organization [facility] Address [address] [place] [address] Care Team Providers Care Pipefitter Welder Name Role Phone Amanda Leslie MD Primary Care Provider [phone] Reason for Visit * Reason Comments Spine Cervical Encounter Details Date Type Department Care Team (Late st Contact Info) Description 12/13/2024 9:45 AM CDT Therapy [facility] [address] [address] [place] [address] [place] [address] Cervicalgia (Primary Dx) Social History Tobacco Use [...] Progress Notes * Mejia Cameron, PT - 12/13/2024 9:45 AM CDT Physical Therapy follow up Payor: BCBS / Plan: [place]BS [place] / Product Type: Commercial / Visit Number: 3 Visit Diagnosis: Diagnosis and Associated Orders ICD-10-CM [...] Current: 06/24 and Worst: 09/23 Patient Report: Patient got her MRI report that showed a full thickness supraspinatus tear among other things. Patient will be seeing an ortho doc later today for that. She comes to clinic with increased lightheadedness this visit, noting that she saw her neuro doc that explained that her neck paincan definitely relate to her TBI symptoms, specifically the vestibular symptoms, causing her to also feel balance. OBJECTIVE Items left blank were not deemed necessary at the time of assessment. Observation: normal, received sitting in NAD, AxOx3 Screening: Negative for referred pain patterns from shoulder or TMJ area Cervical ROM: Flexion 68 Extension 44 Sidebending Right 37 Sidebending Left 17 Rotation Right 71 Rotation Left 60 Thoracolumbar ROM: (*with pain) Flexion Extension Sidebending [...] INTERVENTION/CHARGES: Therapeutic exercise x 10 minutes: - Prone scapular retraction x10 - Attempted manual pectoral stretch, unable to tolerate - Upper trap stretch (right side only) 2x60 sec Manual therapy x 25 minutes: -Suboccipital release -STM/TPR B upper traps, lavator scapulae, parascapular region -CPA C2-C6 Grade 2-3 to reduce pain -Lateral glide B C2-C6 Grade 2-3 to reduce pain -Cervical traction Grade 2-3 to reduce peripheral symptoms Neuromuscular re-education x 10 minutes: - Seated chin tuck 10x5 sec, attempted head lift, unable to tolerate - Prone T 5x3 sec, patient noted some pain, not added to home exercise program - Prone I's 10x3 sec Education/Handouts: see below Provided instruction for the exercises noted and performed in clinic with verbal and tactile cues for proper technique. Handouts were issued for exercise in the HEP and reviewed with repetitions, sets, and frequency. Educated patient on rationale for selected exercises. Patient questions were addressed. Home Program: Access Code: [email or web address] URL: [email or web address] Date: 12/13/2024 Prepared by: Shaun Cameron Exercises - Seated Cervical Rotation AROM - 1 x daily - 5 x weekly - 2 sets - 10 reps - 5- 8 hold - Prone Scapular Slide with Shoulder Extension - 1 x daily - 7 x weekly - 2 sets - 10 reps - 3 sec hold - Supine Chin Tuck - 1 x daily - 7 x weekly - 2 sets - 10 reps - 5 sec hold - Seated Upper Trapezius Stretch - 1 x daily - 7 x weekly - 2 reps - 60 sec hold Timed Charges (Minutes): 02801 - Neuromuscular Re-Education: 10 69273 - Therapeutic Exercise: 10 77961 - Manual Therapy: 25 Timed Billing Method: AMA Total minutes for 8-minute rule calculations: 45 Total Timed Code Treatment Minutes: 45 Timed Code Treatment Minutes: 45 Total Treatment Minutes: 45 ASSESSMENT Therapist Impression/Patient Response: Patient noted reduction in pain after last session for a brief period, imaging tests demonstrated full thickness supraspinatus tear of her right shoulder, patient will be following up with an ortho doc later today regarding that finding. Patient demonstrated improved capacity for deep neck flexor activation, endurance/strength still minimal at this time. Patient did not note an increase in vestibular symptoms while in clinic, including changes of position from seated<>supine, prone<>seated, and was educated on risk/reward nature of completingparascapular strengthening in prone. Patient continues to benefit from skilled therapy. [...] for 12 visits Planned Intervention/Education: Therapeutic Activity (92589), Neuromuscular Re-Education (10634), Therapeutic Exercise (58611), Manual Therapy (04284), Self-Care/Home Management (13607) Informed Consent: Risks, benefits and alternatives to treatment have been explained. Patient and/orfamily in agreement with care plan. The clinician's signature certifies medical necessity for the treatment plan above. documented in this encounter Plan of Treatment Upcoming Encounters Date Type Department Care Team (Latest Contact Info) Description 01/06/2025 5:00 PM CDT Appointment [facility] [address] [address] [place] [address] [address] [place] [address] 01/10/2025 1:00 PM CDT Appointment [facility] [place] [address] [place], [place] [address] Ann Marie Mandujano MD [address] [facility] [place] [address] 01/10/2025 3:00 PM CDT Appointment [facility] [address] [place] [address] [place] [address] [address] [place] [address] 01/13/2025 5:00 PM CDT Appointment [facility] [place] [address] [place] [address] [place] [address] [address] [place] [address] 02/08/2025 12:25 PM [employer] Hospital Encounter [facility] [address] [place] [address] Juan Shelley MD [address] [place] [address] [place] [address] 02/08/2025 12:25 PM [employer] - 02/08/2025 2:20 PM [employer] Surgery [facility] [address] [place] [address] Juan Shelley MD [address] [place] [address] [place] [address] Shoulder Arthroscopic Rotator Cuff Repair 02/15/2025 11:30 AM [employer] Appointment [facility] [place] [address] [place] [address] [place] [address] [address] [place] [address] 02/17/2025 2:45 PM [employer] Appointment [facility] [place] [address] [place] [address] [place] [address] [address] [place] [address] 02/18/2025 2:40 PM [employer] Appointment [facility] [place] [address] [place] [address] Juan Shelley MD [address] [facility] [place] [address] 02/21/2025 3:00 PM [employer] Appointment [facility] [place] [address] [place] [address] [place] [address] [address] [place] [address] 02/24/2025 2:45 PM [employer] Appointment [facility] [place] [address] [place] [address] [place] [address] [place] [address] 02/28/2025 3:00 PM [employer] Appointment [facility] [place] [address] [place] [address] [place] [address] [address] [place] [address] 03/03/2025 2:45 PM [employer] Appointment [facility] [place] [address] [place] [address] [place] [address] [address] [place] [address] 03/07/2025 3:00 PM [employer] Appointment [facility] [address] [address] [place] [address] [address] [place] [address] 03/11/2025 3:00 PM [employer] Appointment [facility] [address] [address] [place] [address] [address] [place] [address] 03/14/2025 3:00 PM [employer] Appointment [facility] [place] [address] [place] [address] [place] [address] [address] [place] [address] 03/18/2025 3:15 PM [employer] Appointment [facility] [place] [address] [place] [address] [place] [address] [place] [address] 03/21/2025 3:00 PM [employer] Appointment [facility] [place] [address] [place] [address] [place] [address] [place] [address] 03/24/2025 2:45 PM [employer] Appointment [facility] [place] [address] [place] [address] [place] [address] [address] [place] [address] 03/25/2025 2:40 PM [employer] Appointment [facility] [place] [address] [place] [address] Juan Shelley MD [address] [facility] [place] [address] 03/28/2025 3:00 PM [employer] Appointment [facility] [place] [address] [place] [address] [place] [address] [address] [place] [address] 04/04/2025 3:00 PM [employer] Appointment [facility] [place] [address] [place] [address] [place] [address] [place] [address] 04/11/2025 3:00 PM [employer] Appointment [facility] [place] [address] [place] [address] [place] [address] [place] [address] 06/08/2025 2:40 PM CDT Appointment [facility]opedic [facility] [address] [place] [address] Juan Shelley MD [address] [facility] [place] [address] Scheduled Procedures Name Priority Associated Diagnoses Date/Ti me ARTHROSCOPIC REPAIR ROTATOR CUFF SHOULDER SMALL Traumatic complete tear of right rotator cuff, initial encounter 02/08/2025 12:25 PM [employer] documented as of this encounter Visit Diagnoses Diagnosis Cervicalgia- Primary Traumatic complete tear of right rotator cuff, initial encounter documented in this encounter Care Teams Pipefitter Welder Relationship Specialty Start Date End Date Amanda Leslie MD [address] [phone] PCP - General 05/04/15 documented as of this encounter
--- OUTSIDE RECORDS SUMMARY | 2024-12-13 15:30 | XMS_ITS | Encounter Summary ---
Author Organization [facility] Address [address] [place] [address] Care Team Providers Care Sheriffs Officer Name Role Phone Amanda Leslie MD Primary Care Provider [phone] Reason for Referral * Consult/Transfer Care (Routine) - New Request Specialty Diagnoses / Procedures Referred By Chaparro valdez Referred To Contact Diagnoses Neck pain Ann Marie Mandujano MD [address] [place] [address] [place] [address] Phone: tel: fax: Referral ID Status Reason Start Date Expiration Date V isits Requested Visits Authorized [id number] New Request 12/13/2024 03/14/2026 1 1 Scheduling Instructions Your clinician has recommended an appointment with [facility]. You can quickly make your appointment online at [facility]/schedule. You can also call [phone] for help scheduling your appointment. We suggest you call your health insurance company about your coverage and benefits for this appointment. Question Answer Appointment Urgency? Non-Urgent Consult for Comprehensive Pain Assessment Reason for visit? neck and shoulder pain Reason for Visit * Reason Comments MRI Results Encounter Details Date Type Department Care Team (Late st Contact Info) Description 12/13/2024 3:30 PM CDT Office Visit [facility] [address] [place] [address] [place] [address] Ann Marie Mandujano MD [address] [facility] [place] [address] Nontraumatic complete tear of right rotator cuff (Primary Dx); Neck pain; Pain amplification syndrome Social History Tobacco Use Types Packs/Day Years [...] this encounter Patient Instructions * Patient Instructions* Taylor Lopez, ANDREA - 12/13/2024 3:30 PM CDT Thank you for Choosing [facility] for your health care visit today. Dr. Ann Marie Mandujano MD Sports Medicine & Pediatric Sports Medicine See Dr. Juan Shelley for shoulder consult Pain clinic consult Medication Requests: Prescriptions are not filled on weekends or on weekdays after 3:00 PM. For all medication refills: Request a refill using Phoneplust or contact your pharmacy. What is Know Your Cost? Know Your Cost is a service for patients and patient/members to call and receive personalized cost information and estimates across our care group. The phone number is (COST) Friday - Friday 8 AM to 5 PM Advanced Imaging Scheduling: To schedule an MRI, Ultrasound, or Image guided injection at [facility] please call [phone]. To schedule an MRI or CT at a [facility] location please call [phone]. [facility] Workers' Compensation [address] [place] [address] (Phone) Email: [email or web address] Release of Information: Radiology/Imaging [address] [place] [address] (Phone) Health Information Management [facility] [place] [address] (Phone) [place] documented in this encounter Progress Notes * Ann Marie Mandujano MD - 12/13/2024 3:30 PM CDT 12/13/2024 Dariana Cam Age: 54 y.o. Date of : 1970 Chief Complaint: MRI follow up History of Present Illness: No new concerns. Past Medical History Reviewed in Epic Medications: Current Medications[1] Allergies: Allergies Allergen Reactions Azithromycin Nausea And Vomiting Cefprozil Nausea And Vomiting Cephalexin Nausea And Vomiting Nitrofurantoin Nausea And Vomiting Quinolones Nausea And Vomiting Imaging: MRIs obtained at [facility] on 12/04/2024 independently reviewed by me today: Cervical spine MRI: T3-4 mild disc degeneration, moderate bilateral facet degeneration and mild bilateral foraminal stenosis 1 mm retrolisthesis C3-4 through C5-6 without neural foraminal or central stenosis. Right shoulder MRI: Full thickness supraspinatus tear with retraction to mid humeral head. Moderate subacromial bursitis, mild narrowing of acromiohumeral space Mild AC and GH arthritis. Assessment: Right full thickness supraspinatus tendon tear Myofascial neck pain H/o TBI Pain amplification syndrome Plan: 1. Reviewed MRI results and diagnosis with patient today. Reassurance regarding cervical spine MRI results. Neck pain is likely myofascial and secondary to upper trapezius spasm from overuse without intact cuff. Discussed all treatment options including PT and CSI. She is concerned that if her shoulder is not addressed, she will continue to have right sided neck pain that will continue to triggerher prior TBI symptoms. We discussed the concept of central pain disorders and pain amplification and that we need to address this as well. 2. Recommended orthopedic surgical consult. 3. Pain clinic consult to help support her comprehensively. 4. Continue PT and vestibular PT. 5. Continue symptomatic care measures. Ann Marie Mandujano MD [1] amitriptyline (AKA ELAVIL) 25 MG tablet, 45 mg. Indications: MALLIKA ACEVEDO July 25, 2015 1:47 PM Received from: External Pharmacy, Disp: , Rfl: 98 ibuprofen (MOTRIN) 400 MG tablet, Take 1 Tablet (400 mg) by mouth every 6 hours as needed for Pain., Disp: , Rfl: LORazepam (AKA ATIVAN) 0.5 MG tablet, Indications: PN: MALLIKA ACEVEDO July 25, 2015 1:47 PM Received from: External Pharmacy, Disp: , Rfl: 0 omeprazole (PRILOSEC) 10 MG capsule, Take 1 Capsule (10 mg) by mouth., Disp: , Rfl: No current facility-administered medications on file as of 12/13/2024. documented in this encounter Plan of Treatment Upcoming Encounters Date Type Department Care Team (Latest Contact Info) Description 01/06/2025 5:00 PM CDT Appointment [facility] [address] [address] [place] [address] [place] [address] 01/10/2025 1:00 PM CDT Appointment [facility] [place] [address] [place] [address] Ann Marie Mandujano MD [address] [facility] [place] [address] 01/10/2025 3:00 PM CDT Appointment [facility] [address] [address] [place] [address] [address] [place] [address] 01/13/2025 5:00 PM CDT Appointment [facility] [place] [address] [place] [address] [place] [address] [place] [address] 02/08/2025 12:25 PM 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 SCHOOL INSTRUCTOR Hospital Encounter [facility] [address] [address] Juan Shelley MD [address] [place] [address] [place] [address] 02/08/2025 12:25 PM ADULT HIGH SCHOOL IN[employer]CTOR - 02/08/2025 2:20 PM ADULT HIGH S[employer]OL IN[employer]CTOR Surgery [facility] [address] [address] Juan Shelley MD [address] [place] [address] [place] [address] Shoulder Arthroscopic Rotator Cuff Repair 02/15/2025 11:30 AM ADULT HIGH [employer]OL IN[employer]CTOR Appointment [facility] [place] [address] [place] [address] [place] [address] [place] [address] 02/17/2025 2:45 PM ADULT HIGH SCHOOL INSTRUCTOR Appointment [facility] [place] [address] [place] [address] [place] [address] [address] [place] [address] 02/18/2025 2:40 PM ADULT HIGH SCHOOL INSTRUCTOR Appointment [facility] [place] [address] [place] [address] Juan Shelley MD [address] [place] [address] [place] [address] 02/21/2025 3:00 PM ADULT HIGH SCHOOL INSTRUCTOR Appointment [facility] [place] [address] [place] [address] [place] [address] [address] [place] [id number] 02/24/2025 2:45 PM ADULT HIGH SCHOOL INSTRUCTOR Appointment [facility] [place] [address] [place] [address] [place] [address] [address] [place] [address] 02/28/2025 3:00 PM ADULT HIGH SCHOOL INSTRUCTOR Appointment [facility] [place] [address] [place] [address] [place] [address] [address] [place] [address] 03/03/2025 2:45 PM ADULT HIGH SCHOOL INSTRUCTOR [facility]ointment [facility] [address] [place] [address] [place] [address] [address] [place] [address] 03/07/2025 3:00 PM ADULT HIGH SCHOOL INSTRUCTOR Appointment [facility] [place] [address] [place] [address] [place] [address] [address] [place] [id number] 03/11/2025 3:00 PM ADULT HIGH SCHOOL INSTRUCTOR Appointment [facility] [place] [address] [place] [address] [place] [address] [address] [place] [id number] 03/14/2025 3:00 PM ADULT HIGH SCHOOL INSTRUCTOR Appointment [facility] [place] [address] [place] [address] [place] [address] [address] [place] [address] 03/18/2025 3:15 PM ADULT HIGH S[employer]OL IN[employer]CTOR Appointment [facility] [place] [address] [place] [address] [place] [address] [address] [place] [address] 03/21/2025 3:00 PM ADULT HIGH S[employer]OL IN[employer]CTOR Appointment [facility] [place] [address] [place] [address] [place] [address] [address] [place] [address] 03/24/2025 2:45 PM ADULT HIGH SCHOOL INSTRUCTOR Appointment [facility] [place] [address] [place] [address] [place] [address] [address] [place] [address] 03/25/2025 2:40 PM ADULT HIGH SCHOOL INSTRUCTOR Appointment [facility] [place] [address] [place] [address] Juan Shelley MD [address] [facility] [place] [address] 03/28/2025 3:00 PM ADULT [employer]OL IN[employer]CTOR Appointment [facility] [place] [address] [place] [address] [place] [address] [address] [place] [address] 04/04/2025 3:00 PM ADULT HIGH SCHOOL IN[employer]CTOR Appointment [facility] [place] [address] [place] [address] [place] [address] [address] [place] [address] 04/11/2025 3:00 PM ADULT HIGH S[employer]OL IN[employer]CTOR Appointment [facility] [place] [address] [place] [address] [place] [address] [address] [place] [address] 06/08/2025 2:40 PM CDT Appointment [facility] [place] [address] [place] [address] Juan Shelley MD [address] [facility] [place] [address] Scheduled Procedures Name Priority Associated Diagnoses Date/Ti me ARTHROSCOPIC REPAIR ROTATOR CUFF SHOULDER SMALL Traumatic complete tear of right rotator cuff, initial encounter 02/08/2025 12:25 PM ADULT [employer] Scheduled Referrals Name Type Priority Associated Diagnoses Orde r Schedule Pain-Medical Adult Consult [facility] Location Referral Routine Neck pain Ordered: 12/13/2024 documented as of this encounter Visit Diagnoses Diagnosis Nontraumatic complete tear of right rotator cuff- Primary Neck pain Cervicalgia Pain amplification syndrome Traumatic complete tear of right rotator cuff, initial encounter documented in this encounter Care Teams Sheriffs Officer Relationship Specialty Start Date End Date Amanda Leslie MD [address] [phone] PCP - General 05/04/15 documented as of this encounter
--- OUTSIDE RECORDS SUMMARY | 2024-12-21 13:45 | XMS_ITS | Encounter Summary ---
[facility] Address [address] [place] [address] Care Team Providers Care Silver Brazer Name Role Phone Amanda Leslie MD Primary Care Provider [phone] Reason for Visit * Reason Comments Spine Cervical Encounter Details Date Type Department Care Team (Late st Contact Info) Description 12/21/2024 1:45 PM CDT Therapy [facility] [address] [address] [place] [address] [place] [address] Cervicalgia (Primary Dx) Social History Tobacco Use [...] Progress Notes * Mejia Cameron, PT - 12/21/2024 1:45 PM CDT Physical Therapy follow up Payor: BCBS / Plan: [place]BS [place] / Product Type: Commercial / Visit Number: 4 Visit Diagnosis: Diagnosis and Associated Orders ICD-10-CM [...] 06/24 and Worst: 09/23 Patient Report: Patient reports having a horrible headache and neck ache all day. She notes having a lot of pain after her last session due to what she thought was over doing it on manual. She feels her vestibular therapy at [facility] is helping, and will be having an appointment with the surgeon tomorrow. Patient continues to note vestibular symptoms continue to cause disability on a regular interval. OBJECTIVE Items left blank were not deemed necessary at the time of assessment. Observation: normal, received sitting in NAD, AxOx3 Screening: Negative for referred pain patterns from shoulder or TMJ area Cervical ROM: Flexion 57 Extension 48 Sidebending Right 44 Sidebending Left 18 Rotation Right 71 Rotation Left 58 Thoracolumbar ROM: (*with pain) Flexion Extension Sidebending [...] B: Negative TODAY'S INTERVENTION/CHARGES: Therapeutic exercise x 15 minutes: - Reviewed current home exercise program including when to use stretching techniques as it relates to symptoms - Seated scapular retraction 10x5 sec - Cervical side bending to the left 2x10, patient cued to avoid painful end range - Prone scapular retraction x10 - Supine pectoral stretch with arm at ~70 deg abduction 2x60 sec - Upper trap stretch (right side only) 2x60 sec Manual therapy x 20 minutes: -Suboccipital release -STM/TPR B upper traps, lavator scapulae, parascapular region -lacquer shader C2-T8 Grade 2-3 to reduce pain -UPAs B C2-L3Fejyg 2-3 to reduce pain -Cervical traction Grade [...] questions were addressed. Home Program: Access Code: [email or web address] URL: [email or web address] Date: 12/21/2024 Prepared by: Shaun Cameron Exercises - Seated [...] - 2 reps - 60 sec hold - Supine Thoracic Mobilization Towel Roll Vertical with Arm Stretch - 1 x daily - 7 x weekly - 2 reps - 30-60 sec hold Timed Charges (Minutes): 65010 - Neuromuscular Re-Education: 10 42750 - Therapeutic Exercise: 15 42107 - Manual Therapy: 20 Timed Billing Method: AMA Total minutes for 8-minute rule calculations: 45 Total Timed Code Treatment Minutes: 45 Timed Code Treatment Minutes: 45 Total Treatment Minutes: 45 ASSESSMENT Therapist Impression/Patient Response: Patient continues to note regular headaches and neck aches that she feels is related to her shoulder injury. She is seeing a surgeon about that shoulder injury tomorrow to discuss options. Patient noted reduction in tension of parascapular and cervical muscleswith manual therapy and activation exercises (deep cervical neck flexors and parascapular musculature). She noted an increase in headache and neck pain after last session, so intensity of techniques was reduced. Patient was able to better tolerate pectoral stretching on this visit. Patient continues to benefit from skilled therapy. [...] dynamic postures PLAN Recommendations/Plan for Next Visit: Review surgical appointment, continue cervical manual, parascapular retraining, self SNAG PT Frequency/Duration: 1-2x/week for 12 visits Planned Intervention/Education: Therapeutic Activity (91989), Neuromuscular Re-Education (33374), Therapeutic Exercise (90027), Manual Therapy (02421), Self-Care/Home Management (38014) Informed Consent: Risks, benefits and alternatives to treatment have been explained. Patient and/orfamily in agreement with care plan. The clinician's signature certifies medical necessity for the treatment plan above. documented in this encounter Plan of Treatment Upcoming Encounters Date Type Department Care Team (Latest Contact Info) Description 01/06/2025 5:00 PM CDT Appointment [facility] [place] [address] [facility] [place] [id number] [place] [address] [address] [place] [address] 01/10/2025 1:00 PM CDT Appointment [facility] Orth[facility] [address] [place] [address] Ann Marie Mandujano MD [address] [place] [address] 01/10/2025 3:00 PM CDT Appointment [facility] [place] [address] [place] [address] [place] [address] [place] [address] 01/13/2025 5:00 PM CDT Appointment [facility] [place] [address] [place] [address] [place] [address] [place] [address] 02/08/2025 12:25 PM CLIENT EXPERIENCE SPECIALIST Hospital Encounter [facility] [address] [place] [address] Juan Shelley MD [address] [place] [address] 02/08/2025 12:25 PM CLIENT EXPERIENCE SPECIALIST - 02/08/2025 2:20 PM CLIENT EXPERIENCE SPECIALIST Surgery [facility] [address] [place] [address] Juan Shelley MD [address] [place] [address] Shoulder Arthroscopic Rotator Cuff Repair 02/15/2025 11:30 AM CLIENT EXPERIENCE SPECIALIST Appointment [facility] [place] [address] [place] [address] [place] [address] [address] [place] [address] 02/17/2025 2:45 PM CLIENT EXPERIENCE SPECIALIST Appointment [facility] [place] [id number] [place] [address] [place] [address] [address] [place] [address] 02/18/2025 2:40 PM CLIENT EXPERIENCE SPECIALIST Appointment [facility] Orth[facility] [address] [place] [address] Juan Shelley MD [address] [place] [address] 02/21/2025 3:00 PM CLIENT EXPERIENCE SPECIALIST Appointment [facility] [place] [address] [place] [address] [place] [address] [address] [place] [address] 02/24/2025 2:45 PM CLIENT EXPERIENCE SPECIALIST Appointment [facility] [place] [address] [place] [address] [place] [address] [place] [address] 02/28/2025 3:00 PM CLIENT EXPERIENCE SPECIALIST Appointment [facility] [place] [address] [place] [address] [place] [address] [address] [place] [address] 03/03/2025 2:45 PM CLIENT EXPERIENCE SPECIALIST Appointment [facility] [place] [address] [place] [address] [place] [address] [address] [place] [address] 03/07/2025 3:00 PM CLIENT EXPERIENCE SPECIALIST Appointment [facility] [place] [address] [place] [address] [place] [address] [address] [place] [address] 03/11/2025 3:00 PM CLIENT EXPERIENCE SPECIALIST Appointment [facility] [place] [address] [place] [address] [place] [address] [address] [place] [address] 03/14/2025 3:00 PM CLIENT EXPERIENCE SPECIALIST Appointment [facility] [place] [address] [place] [address] [place] [address] [address] [place] [address] 03/18/2025 3:15 PM CLIENT EXPERIENCE SPECIALIST Appointment [facility] [place] [address] [place] [address] [place] [address] [address] [place] [address] 03/21/2025 3:00 PM CLIENT EXPERIENCE SPECIALIST Appointment [facility] [place] [address] [place] [address] [place] [address] [address] [place] [address] 03/24/2025 2:45 PM CLIENT EXPERIENCE SPECIALIST Appointment [facility] [place] [address] [place] [address] [place] [address] [address] [place] [address] 03/25/2025 2:40 PM CLIENT EXPERIENCE SPECIALIST Appointment [facility] [place] [address] [place] [address] [place] [address] Juan Shelley MD [address] [place] [address] [place] [address] 03/28/2025 3:00 PM CLIENT EXPERIENCE SPECIALIST Appointment [facility] [place] [address] [place] [address] [place] [address] [address] [place] [address] 04/04/2025 3:00 PM CLIENT EXPERIENCE SPECIALIST Appointment [facility] [place] [address] [place] [address] [place] [address] [place] [address] 04/11/2025 3:00 PM CLIENT EXPERIENCE SPECIALIST Appointment [facility] [place] [address] [place] [address] [place] [address] [place] [address] 06/08/2025 2:40 PM CDT Appointment [facility] [place] [address] [place] [address] Juan Shelley MD [address] [place] [address] Scheduled Procedures Name Priority Associated Diagnoses Date/Ti me ARTHROSCOPIC REPAIR ROTATOR CUFF SHOULDER SMALL Traumatic complete tear of right rotator cuff, initial encounter 02/08/2025 12:25 PM CLIENT EXPERIENCE SPECIALIST documented as of this encounter Visit Diagnoses Diagnosis Cervicalgia- Primary Traumatic complete tear of right rotator cuff, initial encounter documented in this encounter Care Teams Silver Brazer Relationship Specialty Start Date End Date Amanda Leslie MD [address] [address] PCP - General 05/04/15 documented as of this encounter
--- OUTSIDE RECORDS SUMMARY | 2024-12-22 15:00 | XMS_ITS | Encounter Summary ---
[facility] Address [address], [place] [address] Care Team Providers Care Supervisor Payroll Name Role Phone Amanda Leslie MD Primary Care Provider [phone] Reason for Visit * Reason Comments CONSULT SHOULDER PAIN Encounter Details Date Type Department Care Team (Late st Contact Info) Description 12/22/2024 3:00 PM CDT Office Visit [facility] Orthopedic [facility] [address] [place] [address] Juan Mcclure MD [address] [place] [address] Traumatic complete tear of right rotator cuff, initial encounter (Primary Dx) Social History Tobacco Use Types [...] on file documented as of this encounter Last Filed Vital Signs Vital Sign Reading Time Taken Comments Blood Pressure - - Pulse - - Temperature - - Respiratory Rate - - Oxygen Saturation - - Inhaled Oxygen Concentration - - Weight 70.3 kg (155 lb) 12/22/2024 2:53 PM CDT Height 154.9 cm (5' 1) 12/22/2024 2:53 PM CDT Body Mass Index 29.29 12/22/2024 2:53 PM CDT documented in this encounter Patient Instructions * Patient Instructions* Magdi Cervantes ATC - 12/22/2024 3:00 PM CDT Thank you for Choosing [facility] for your health care visit today. Dr. Juan Mcclure MD Orthopaedic Surgeon: Shoulder & Elbow Medication Requests: Prescriptions are not filled on weekends or on weekdays after 3:00 PM. For all medication refills: Request a refill using [employer] or contact your pharmacy. What is Know Your Cost? Know Your Cost is a service for patients and patient/members to call and receive personalized cost information and estimates across our care group. The phone number is (COST) Friday - Friday 8 AM to 5 PM Advanced Imaging Scheduling: To schedule an MRI, Ultrasound, or Image guided injection at [facility] please call [phone]. To schedule an MRI or CT at a [facility] please call [phone]. [facility] Workers' Compensation [address] [place] [address] (Phone) Email: [email or web address] Release of Information: Radiology/Imaging [address] [place] [address] (Phone) Health Information Management [address] [place] [address] (Phone) [employer] documented in this encounter Progress Notes * Juan Mcclure MD - 12/22/2024 12:00 AM CDT NAME: DARIANA CAM CSN: [id number] CLINIC NOTE DATE OF SERVICE: 12/22/2024 : 1970 A 54-year-old female, here for right-sided rotator cuff tear consultation, acute on chronic issue, started 5 years ago, worsening over the last 2 months. Pain is worse in the lateral shoulder, also going towards the neck. Loss of motion, loss of strength, and loss of function. The patient has triedTylenol with minimal help. She gets a painful pop in her shoulder with motion. No history of cortico steroid injection. No history of surgery. The patient is in physical therapy for neck and shoulder.Affecting all activities of daily living and sleep. The patient is right-handed. The patient has anMRI on 12/04/2024 from [facility]. The symptoms are pain, weakness, limited motion, locking, catching, instability, and stiffness. Patient describes sharp, dull, aching, and burning pain. The patient has tried heat, massage, elevation, rest, acupuncture therapy, nonsteroidal anti-inflammatories, and Tylenol. The patient said that activity, extension, lifting, lying down, movement of the neck, throwing, repetitive motion, and reaching across and away from the body all cause pain. Evidently, the patient has had a traumatic brain injury and the symptoms have exacerbated with neck tightness. The patient is on part-time disability, works 10 hours weekly, due to the traumatic brain injury. The patientstarted searching for pain relief to the shoulders, neck, and arm. The MRI by report shows a full-thickness tear of the supraspinatus with retraction to the mid humeral head. There is mild infraspinat us and subscapularis tendinopathy, but without tear. There is mild narrowing of the acromiohumeral space with spur, thickening of the coracoacromial ligament, slight mild arthritis of the glenohumeral joint, and degenerative fraying of the labrum. No tendinopathy. The rotator cuff tear is best appreciated on series 113, image 14. There is no significant fatty infiltration, but the tear is most notable on series 108, image 20. The subscapularis appears to be intact. 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 Tylenol 2 pills twice per day with minimal help. Neck and shoulder therapy has been going on for 2 weeks and has not been helpful at the present time. She describes spasm in the neck, which triggers her migraine. PHYSICAL EXAM: Alert and oriented female, no distress. Cranial nerves 2 through 12 intact. SKIN: Noatrophy, erythema, drainage, or cellulitic or dermatologic conditions. Patient has appropriate affect. Normal weight for height. RANGE OF MOTION OF THE SHOULDER: Forward elevation: Right to about 170, left to about 170. External rotation: Right 70, left 70. Internal rotation: On the right side T12, left side T10. STRENGTH: Supraspinatus: 4/5 on the right, 5/5 on the left. Infraspinatus: Right 5/5, left 5/5. Subscapularis: Right 5/5, left 5/5. Deltoids: Right 5/5, left 5/5. Biceps: Right 5/5, left 5/5. Triceps: Right 5/5, left 5/5. SPECIAL TESTS: Drop arm test: Right side is positive today. Swimmer test: Right positive. Neer's and Umana impingement test: Right positive. Yergason test: Right negative. Speed test: Right negative. RADIOGRAPHS: MRI from 12/04/2024 demonstrates a full-thickness tear of the supraspinatus tendon with retraction to the level of mid humeral head. IMPRESSION: Full-thickness rotator cuff tear, refractory to physical therapy for neck and shoulder and qdvv-[id number]-umyhqwa pain medications. PLAN: I spoke with the patient about different options, surgical and nonsurgical. She wants to consider surgical intervention, but wants to talk to Jaclyn about open surgical dates before committing. All the risks and benefits were described at length. She had ample time to ask questions and have them answered. JUAN MCCLURE MD MRW/JOES /[id number] documented in this encounter Plan of Treatment Upcoming Encounters Date Type Department Care Team (Latest Contact Info) Description 01/06/2025 5:00 PM CDT Appointment [facility] [place] [address] [place] [address] [place] [address] [address] [place] [address] 01/10/2025 1:00 PM CDT Appointment [facility] [place] [address] [place] [address] Ann Marie Mandujano MD [address] [facility] [place] [address] 01/10/2025 3:00 PM CDT Appointment [facility] [place] [address] [place] [address] [place] [address] [address] [place] [address] 01/13/2025 5:00 PM CDT Appointment [facility] [place] [address] [place] [address] [place] [address] [address] [place] [address] 02/08/2025 12:25 PM OUTSIDE REPAIRER SPECIAL Hospital Encounter [facility] [address] [place] [address] Juan Mcclure MD [address] [place] [address] [place] [address] 02/08/2025 12:25 PM OUTSIDE REPAIRER SPECIAL - 02/08/2025 2:20 PM OUTSIDE REPAIRER SPECIAL Surgery [facility] [address] [place] [address] Juan Mcclure MD [address] [place] [address] [place] [address] Shoulder Arthroscopic Rotator Cuff Repair 02/15/2025 11:30 AM OUTSIDE REPAIRER SPECIAL Appointment [facility] [place] [address] [place] [address] [place] [address] [address] [place] [address] 02/17/2025 2:45 PM OUTSIDE REPAIRER SPECIAL Appointment [facility] [place] [address] [place] [address] [place] [address] [address] [place] [address] 02/18/2025 2:40 PM OUTSIDE REPAIRER SPECIAL Appointment [facility] Orth[facility] [address] [facility] [address] Juan Mcclure MD [address] [facility] [place] [address] 02/21/2025 3:00 PM OUTSIDE REPAIRER SPECIAL Appointment [facility] [place] [address] [place] [address] [place] [address] [address] [place] [address] 02/24/2025 2:45 PM OUTSIDE REPAIRER SPECIAL Appointment [facility] [place] [address] [place] [address] [place] [address] [address] [place] [address] 02/28/2025 3:00 PM OUTSIDE REPAIRER SPECIAL Appointment [facility] [place] [address] [place] [address] [place] [address] [address] [place] [address] 03/03/2025 2:45 PM OUTSIDE REPAIRER SPECIAL Appointment [facility] [address] [address] [place] [address] [address] [place] [address] 03/07/2025 3:00 PM OUTSIDE REPAIRER SPECIAL Appointment [facility] [place] [address] [place] [address] [place] [address] [address] [place] [address] 03/11/2025 3:00 PM OUTSIDE REPAIRER SPECIAL Appointment [facility] [address] [address] [place] [address] [place] [address] 03/14/2025 3:00 PM OUTSIDE REPAIRER SPECIAL Appointment [facility] [address] [address] [place] [address] [place] [address] 03/18/2025 3:15 PM OUTSIDE REPAIRER SPECIAL Appointment [facility] [address] [address] [place] [address] [place] [address] 03/21/2025 3:00 PM OUTSIDE REPAIRER SPECIAL Appointment [facility] [address] [address] [place] [address] [address] [place] [address] 03/24/2025 2:45 PM OUTSIDE REPAIRER SPECIAL Appointment [facility] [address] [address] [place] [address] [address] [place] [address] 03/25/2025 2:40 PM OUTSIDE REPAIRER SPECIAL Appointment [facility] Orth[facility] [address] [place] [address] Juan Mcclure MD [address] [place] [address] [place] [address] 03/28/2025 3:00 PM OUTSIDE REPAIRER SPECIAL Appointment [facility] [place] [address] [place] [address] [place] [address] [place] [address] 04/04/2025 3:00 PM OUTSIDE REPAIRER SPECIAL Appointment [facility] [place] [address] [place] [address] [place] [address] [place] [address] 04/11/2025 3:00 PM OUTSIDE REPAIRER SPECIAL Appointment [facility] [place] [address] [place] [address] [place] [address] [place] [id number] 06/08/2025 2:40 PM CDT Appointment [address] [address] Juan Mcclure MD [address] [place] [address] [place] [address] Scheduled Procedures Name Priority Associated Diagnoses Date/Ti me ARTHROSCOPIC REPAIR ROTATOR CUFF SHOULDER SMALL Traumatic complete tear of right rotator cuff, initial encounter 02/08/2025 12:25 PM OUTSIDE REPAIRER SPECIAL documented as of this encounter Visit Diagnoses Diagnosis Traumatic complete tear of right rotator cuff, initial encounter- Primary Traumatic complete tear of right rotator cuff- Primary Traumatic complete tear of right rotator cuff, initial encounter documented in this encounter Care Teams Supervisor Payroll Relationship Specialty Start Date End Date Amanda Leslie MD [facility] [id number] [place] [phone] PCP - General 05/04/15 documented as of this encounter
--- OUTSIDE RECORDS SUMMARY | 2024-12-27 15:00 | XMS_ITS | Encounter Summary ---
[facility] Address [address] [place] [id number] Care Team Providers Care Caddy Master Name Role Phone Amanda Leslie MD Primary Care Provider [phone] Reason for Visit * Reason Comments Spine Cervical Encounter Details Date Type Department Care Team (Late st Contact Info) Description 12/27/2024 3:00 PM CDT Therapy [facility] [address] [address] [place] [address] [place] [address] Cervicalgia (Primary Dx) Social History Tobacco Use [...] Progress Notes * Mejia Cameron, PT - 12/27/2024 3:00 PM CDT Physical Therapy follow up Payor: BCBS / Plan: [employer]BS [place] / Product Type: Commercial / Visit Number: 5 Visit Diagnosis: Diagnosis and Associated Orders ICD-10-CM [...] Current: 06/24 and Worst: 09/23 Patient Report: Since last visit patient had another visit with an orthopedic surgeon that suggest that the surgical route would be a likely better option than just therapy. Patient opted for surgerywhich she scheduled 02/08. Patient reports current headache that was much worse over the weekend, as well as moderate neck pain currently. Patient continues with vestibular [place] through [facility] OBJECTIVE Items left blank were not deemed necessary at the time of assessment. Observation: normal, received sitting in NAD, AxOx3 Screening: Negative for referred pain patterns from shoulder or TMJ area Cervical ROM: Flexion 53 Extension 31 Sidebending Right 25 Sidebending Left 21 Rotation Right 82 Rotation Left 62 Thoracolumbar ROM: (*with pain) Flexion Extension Sidebending Right Sidebending Left Rotation Right Rotation Left * = pain Cervical Strength: Supine neck flexion (tuck and lift) endurance test: 15 seconds Neurological Screen: Negative for dermatomes, bicipital [...] cued to avoid painful end range - Supine pectoral stretch with arm at ~70 deg abduction 2x60 sec - Upper trap stretch with chin tuck 2x60 sec - Levator scapulae stretch with chin tuck 2x60 sec Manual therapy x 15 minutes: -Suboccipital release -STM/TPR B upper traps, lavator scapulae, parascapular region -medical service technician C2-T8 Grade 2-3 to reduce pain -UPAs B C2-T8 Grade 2-3 to reduce pain -Cervical traction Grade 2-3 to reduce peripheral symptoms Neuromuscular re-education x 10 minutes: - Supine chin tuck 10 x 5 sec - Deep neck flexor training 5 x 10 sec - Prone I's 2x10x3 sec Education/Handouts: see below Provided instruction for the exercises noted and performed in clinic with verbal and tactile cues for proper technique. Handouts were issued for exercise in the HEP and reviewed with repetitions, sets, and frequency. Educated patient on rationale for selected exercises. Patient questions were addressed. Home Program: Access Code: [email or web address] URL: [email or web address] ANTIQUES & CONSIGNMENT/ Date: 12/27/2024 Prepared by: Shaun Cameron Exercises - Prone Scapular Slide with Shoulder Extension - 1 x daily - 7 x weekly - 2 sets - 10 reps - 3 sec hold - Seated Upper Trapezius Stretch - 1 x daily - 7 x weekly - 2 reps - 60 sec hold - Supine Thoracic Mobilization Towel Roll Vertical with Arm Stretch - 1 x daily - 7 x weekly - 2 reps - 30-60 sec hold - Supine Deep Neck Flexor Training - Hold - 1 x daily - 7 x weekly - 5 reps - 10-15 sec hold Timed Charges (Minutes): 07942 - Neuromuscular Re-Education: 10 98092 - Therapeutic Exercise: 15 43614 - Manual Therapy: 15 Timed Billing Method: AMA Total minutes for 8-minute rule calculations: 40 Total Timed Code Treatment Minutes: 40 Timed Code Treatment Minutes: 40 Total Treatment Minutes: 40 ASSESSMENT Therapist Impression/Patient Response: Patient reports having another bad weekend at home, with headache, neck ache, and vestibular symptoms causing a high degree of disability. Patient noted that she has elected surgery to repair her torn right rotator cuff, which is currently scheduled for the end of January. Patient continues to respond favorably to manual techniques to reduce neck muscular hypertonicity and joint hypomobility, as well as continued stretching and coordination activities. Patient continues to benefit from skilled therapy. [...] dynamic postures PLAN Recommendations/Plan for Next Visit: Cervical/shoulder manual, progress parascapular and deep cervical strengthening, progress into resisted activity as able, self SNAG to left PT Frequency/Duration: 1-2x/week for 12 visits Planned Intervention/Education: Therapeutic Activity (03689), Neuromuscular Re-Education (78415), Therapeutic Exercise (06494), Manual Therapy (20058), Self-Care/Home Management (34269) Informed Consent: Risks, benefits and alternatives to treatment have been explained. Patient and/orfamily in agreement with care plan. The clinician's signature certifies medical necessity for the treatment plan above. documented in this encounter Plan of Treatment Upcoming Encounters Date Type Department Care Team (Latest Contact Info) Description 01/06/2025 5:00 PM CDT Appointment [facility] [place] [address] [facility] [address] [place] [address] [place] [address] 01/10/2025 1:00 PM CDT Appointment [facility] [place] [address] [place] [address] [place] [id number] Ann Marie Mandujano MD [address] [facility] [place] [id number] 01/10/2025 3:00 PM CDT Appointment [facility] [place] [address] [place] [address] [place] [address] [place] [address] 01/13/2025 5:00 PM CDT Appointment [facility] [place] [address] [place] [address] [place] [address] [place] [address] 02/08/2025 12:25 PM COMMUNITY DEVELOPMENT PLANNER Hospital Encounter [facility] [address] [place] [address] Juan Shelley MD [address] [facility] [address] 02/08/2025 12:25 PM COMMUNITY DEVELOPMENT PLANNER - 02/08/2025 2:20 PM COMMUNITY DEVELOPMENT PL[employer]NER Surgery [facility] [address] [place] [address] Juan Shelley MD [address] [facility] [address] Shoulder Arthroscopic Rotator Cuff Repair 02/15/2025 11:30 AM COMMUNITY DEVELOPMENT PLANNER Appointment [facility] [place] [address] [place] [address] [place] [address] [place] [address] 02/17/2025 2:45 PM COMMUNITY DEVELOPMENT PLANNER Appointment [facility] [place] [address] [place] [address] [place] [address] [place] [address] 02/18/2025 2:40 PM COMMUNITY DEVELOPMENT PLANNER Appointment [facility] [place] [address] [facility] [place] [address] Juan Shelley MD [address] [facility] [place] [address] 02/21/2025 3:00 PM COMMUNITY DEVELOPMENT PLANNER Appointment [facility] [place] [address] [place] [address] [place] [address] [place] [address] 02/24/2025 2:45 PM COMMUNITY DEVELOPMENT PLANNER Appointment [facility] [place] [address] [place] [address] [place] [address] [place] [address] 02/28/2025 3:00 PM COMMUNITY DEVELOPMENT PLANNER Appointment [facility] [place] [address] [place] [address] [place] [address] [place] [address] 03/03/2025 2:45 PM COMMUNITY DEVELOPMENT PLANNER Appointment [facility] [place] [address] [place] [address] [place] [address] [place] [address] 03/07/2025 3:00 PM COMMUNITY DEVELOPMENT PLANNER Appointment [facility] [place] [address] [place] [address] [place] [address] [place] [address] 03/11/2025 3:00 PM COMMUNITY DEVELOPMENT PLANNER Appointment [facility] [place] [address] [place] [address] [place] [address] [place] [address] 03/14/2025 3:00 PM COMMUNITY DEVELOPMENT PL[employer]NER [facility]ment [facility] [address] [address] [place] [address] [place] [address] 03/18/2025 3:15 PM COMMUNITY DEVELOPMENT PL[employer]NER [facility]ment [facility] [address] [address] [place] [address] [place] [address] 03/21/2025 3:00 PM COMMUNITY DEVELOPMENT PLANNER Appointment [facility] [address] [address] [place] [address] [place] [address] 03/24/2025 2:45 PM COMMUNITY DEVELOPMENT PLANNER Appointment [facility] [address] [address] [place] [address] [place] [address] 03/25/2025 2:40 PM COMMUNITY DEVELOPMENT PLANNER Appointment [facility] [place] [address] [place] [address] Juan Shelley MD [address] [facility] [place] [address] 03/28/2025 3:00 PM COMMUNITY DEVELOPMENT PLANNER [facility]ment [facility] [address] [address] [place] [address] [place] [address] 04/04/2025 3:00 PM COMMUNITY DEVELOPMENT PLANNER Appointment [facility] [place] [address] [place] [address] [place] [address] [place] [address] 04/11/2025 3:00 PM COMMUNITY DEVELOPMENT PLANNER Appointment [facility] [place] [address] [place] [address] [place] [address] [place] [address] 06/08/2025 2:40 PM CDT Appointment [facility] [address] [place] [address] Juan Shelley MD [address] [facility] [id number] Scheduled Procedures Name Priority Associated Diagnoses Date/Ti me ARTHROSCOPIC REPAIR ROTATOR CUFF SHOULDER SMALL Traumatic complete tear of right rotator cuff, initial encounter 02/08/2025 12:25 PM COMMUNITY DEVELOPMENT PLANNER documented as of this encounter Visit Diagnoses Diagnosis Traumatic complete tear of right rotator cuff- Primary Cervicalgia- Primary Traumatic complete tear of right rotator cuff, initial encounter documented in this encounter Care Teams Caddy Master Relationship Specialty Start Date End Date Amanda Leslie MD [address] [address] PCP - General 05/04/15 documented as of this encounter
--- OUTSIDE RECORDS SUMMARY | 2024-12-28 04:09 | XMS_ITS | Continuity of Care Document ---
Author Organization [facility] Address [address] [address] [place] [address] Phone Care Team Providers Care Ore Feeder Name Role Phone Davi Sanchez MD, Magdi Unavailable Unavailabl e Allergies, Adverse Reactions, Alerts Substance Reaction Status Criticality sulfamethizole Nausea/Vomiting Active No Informa tion CIPROFLOXACIN HCL Nausea/Vomiting Active No Info rmation CEPHALEXIN MONOHYDRATE Nausea/Vomiting Active No Information azithromycin Nausea/Vomiting Active No Informati on Quinolones Nausea/Vomiting Active No Informati on NITROFURANTOIN MACROCRYSTALLINE Nausea Active No Information WARNIN allergy(ies) could not be collected because the type is not supported. Please contact the source practice for further details. Medications Medication Instructions Dosage Effective Dates (start - stop) Status Comments Prilosec OTC 20 mg tablet,delayed release take 1 tablet by oral route 1-2 times every day - Active BACTRIM (unknown strength) as needed Not Available - Active amitriptyline 25 mg tablet take 1 tablet by oral route every day at bedtime 25 MG - Active amitriptyline 10 mg tablet take 2 tablet by oral route every day 20 MG - Active lorazepam 0.5 mg tablet take 0.5 tablet by oral route every day as needed 0.25 MG - Active Procedures Procedure Date Offic/outpt E&m Estab Mod-hi 2 25 Offic/outpt E&m Estab Mod-hi 2 24 Established Level 4 Colonoscopy Flex; W/bx 1/mx Level Iv-surg Path Gross/micro 22 Offic/outpt E&m Estab Mod-hi 2 19 Colonoscopy Flex; W/remov Les- 19 Colonoscopy Flex; W/bx 1/mx Level Iv-surg Path Gross/micro 19 Offic/outpt E&m New Mod-hi Offic Cons New/estab Mod-hi 60 06 Advance Directives Directive Yes / No Effective Date File Name No Information Encounters Encounter Description Practice Location Reason(s) For Visit Diagnoses Date Provider Providers Copied on Encounter [facility], [address] [address], [place], [place], [id number], [place] tel:[phone] [facility] No Information 5 Davi Fairbanks. [address] [facility], [facility], [place], [id number] , [place]. [phone] Offic/outpt E&m Estab Mod-hi 2 [facility], [address] [address], [place], [place], [id number], [place] tel:[phone] [facility] GI Symptoms or Concerns (chief complaint) Lower abdominal pain 5 Vickey Carlson. [address] [facility], [facility] [place], [id number] , [place]. [phone] Referring Provider: Referral Self, USE FOR SELF REFERRALS. Offic/outpt E&m Estab Mod-hi 2 [facility], [address] [address], [place], [id number], [place] tel:[phone] [facility] GI Symptoms or Concerns (chief complaint) Irritable bowel syndrome with diarrhea 4 Vickey Carlson. [address] [facility], [place], [id number] , [place]. [phone] Referring Provider: Glenny Koroma MD, [address], [place], [address]. tel:[phone] [facility], [address] [address], [place], [id number], [place] tel:[phone] [facility] No Information 4 Davi Fairbanks. [address] [facility], [address], [place], [place], [id number] , [place]. tel: [phone] [facility], [address] [address], [place], [id number], [place] tel:[phone] [facility] Heartburn 4 Vickey Carlson. [address] [facility], [address], [place], [id number] , [place]. tel: [phone] Established Level 4 [facility], [address] [address], [place], [id number], [place] tel:[phone] [facility] GI Symptoms or Concerns (chief complaint) HeartburnIrritable bowel syndrome with diarrheaSaint [facility] sore 4 Vickey Carlson. [address] [facility], [address], [place], [id number] , [place]. tel: [phone] Referring Provider: Referral Self, USE FOR SELF REFERRALS. [facility], [address] [address], [place], [id number], [place] tel:[phone] [facility] GI Symptoms or Concerns (chief complaint) Colorectal polyp detected on colonoscopyDivertic ulosisInternal hemorrhoidsEncounte r for screening for malignant neoplasm of colonPersonal history of colonic polypsBenign neoplasm of ascending colonDvrtclos of lg int w/o perforation or abscess w/o bleedingDvrtclos of lg int w/o perforation or abscess w/o bleedingBenign neoplasm of ascending colonPersonal history of colonic polyps 2 Vickey Carlson. [address] [facility], [address], [place], [id number] , [place]. tel: [phone] Referring Provider: Referral Self, USE FOR SELF REFERRALS. [facility], [address] [address], [place], [id number], [place] tel:[phone] [facility] No Information 2 Vickey Carlson. [address] [facility], [address], [facility] [place], [id number] , [place]. tel: [phone] Offic/outpt E&m Estab Mod-hi 2 [facility], [address] [address], [place], [id number], [place] tel:[phone] [facility] GI Symptoms or Concerns (chief complaint) Irritable bowel syndrome with diarrheaHeartburn 9 Vickey Carlson. [address] [facility], [facility] [address], [facility] [place], [id number] , [place]. tel: [phone] Referring Provider: Referral Self, USE FOR SELF REFERRALS. [facility], [address] [address], [place], [id number], [place] tel:[phone] [facility] Colorectal polyp detected on colonoscopyChange in bowel habitDiverticulosis Internal hemorrhoidsBenign neoplasm of sigmoid colonDvrtclos of lg int w/o perforation or abscess w/o bleedingChange in bowel habitOther hemorrhoidsDvrtclos of lg int w/o perforation or abscess w/o bleedingBenign neoplasm of sigmoid colon 9 Vickey Carlson. [address] [facility], [address], [place], [place], [address] , [place]. tel: [phone] Referring Provider: Referral Self, USE FOR SELF REFERRALS. Offic/outpt E&m New Mod-hi [facility], [address] [address], [place], [id number], [place] tel:[phone] [facility] GI Symptoms or Concerns (chief complaint) Change in bowel habitsIntermittent left lower quadrant abdominal painDietary counseling and surveillanceElevate d blood-pressure reading, w/o diagnosis of htn 9 Vickey Carlson. [address] [facility], [address], [place], [address] , [place]. tel:[phone] Referring Provider: Referral Self, USE FOR SELF REFERRALS. Offic Cons New/estab Mod-hi 60 [facility], [address] [address], [place], [id number], [place] tel:[phone] [facility] PainDyspepsia/acid Peptic Disease 9200 6 Omar Alvarez. [address] [facility], [address], [place], [id number] , [place]. [phone] Referring Provider: [place], [address] [place], [address]. tel:[phone] Family History Family Member Type Diagnosis Age At Onset Mother Problem (finding) osteoporosis Mother Problem (finding) congestive heart failur e Father Problem (finding) glaucoma Sister Problem (finding) diverticulitis of colon Mother Problem (finding) hypertension Father Problem (finding) Colon polyps Mother Problem (finding) kidney failure Father Problem (finding) kidney failure Mother Problem (finding) Gallbladder disease Father Problem (finding) malignant neoplasm of l lars Mother Problem (finding) malignant neoplasm of t hyroid Father Problem (finding) pulmonary emphysema Mother Problem (finding) glaucoma Father Problem (finding) Cancer, skin Mother Problem (finding) GERD Immunizations Vaccine Date Status Comments tetanus toxoid, reduced diphtheria toxoid, and acellular pertussis vaccine, adsorbed administered Note: [facility] bi-direct ional interface ; Source: Other Registry tetanus toxoid, reduced diphtheria toxoid, and acellular pertussis vaccine, adsorbed administered Note: [facility] bi-direct ional interface ; Source: Other Registry Payers Payer name Insurance type Covered democrat ID Authoriza tion(s) [employer] [facility] [id number] Medicare NGS MB [id number] Social History Type Description Quantity Date Captured Comments Sex Female Smoking Status No Information Chief Complaint And Reason For Visit No Information Reason For Referral Reason For Referral No Information Plan Of Treatment Date Type Action Status Goal Lifestyle education regardin g diet completed Referral Ordered: CT Abdomen And Pelvis WITH Contrast Appointment date/timeframe: 04/21/2024 ordered Referral Ordered: EGD Appointment date/timeframe: 05/14/2023 ordered Referral Ordered: follow-up visit 3 Months Appointment date/timeframe: 3 Months ordered Appointment Dariana Cam BOOKED History Of Present Illness Encounter Date Complaint History Of Prese nt Illness GI Symptoms or Concerns As you r luciana Dariana Is a 54-year-old woman with IBSD seen today for follow-up of what was likely a flare of IBSHistorically she had had IBS with diarrhea though it seems that over the past several years she has slowly evolved into having more constipation symptomsJennifer tells me that over the past several weeks she had 3 discrete episodes where she passed some very hard stool having to strain then after that some diarrhea and would have diffuse abdominal cramping. During the first 2 episodes the cramping went away but more recently, yesterday she had severe abdominal cramping and consider going to the emergency department. She did pass a small amount of blood mixed into the stool and on the toilet paperToday she made 2 softer bowel movements without any blood and the pain is improved but is still somewhat persistent and bothersomeImportantly she tells me today that she has outlet dysfunction like symptomsShevan says that around 50% of her bowel movements are passed with either digital pressure with in her vagina holding the wall or less often digital pressure within the anus itselfSometimes she is able to pass stool without this digital manipulationOther times when she does need digital manipulation it is almost universally helpful and does not bother her You will recall that she does have some abdominal hypersensitivity and takes amitriptyline 45 mg nightly which has been very helpfulShevan has had some mouth ulcers of unclear etiology (though she believes it could be a sensitivity to chocolate). Her omeprazole is not being taken at 20 mg daily with good effectHad an endoscopy in the [place] system in June 2023 that was normal aside from some diminutive benign polyps in the stomachLast colonoscopy in 2021 with a sessile serrated adenoma. Internal hemorrhoids noted. Prior to that and advanced adenoma in 2018, internal hemorrhoids noted on this exam as well.She continues on amitriptyline 45 mg nightly GI Symptoms or Concerns As you r lucinaa Dariana Is a 53-year-old woman with IBSD seen today for follow-up of what was likely a flare of IBSShevan stated that she had a 3-week episode where she had horrible indigestion. [place] a fullness and discomfort across her upper chestShe actually had the instinct to bend over at the waist while standing and remain in that position for many minutes which relieved some of the discomfort and pressure and interestingly after she started doing this all of her symptoms improved significantlyFortunately she has been feeling well for the past several weeks and wishes to discuss what could have possibly happened during that 3-week. When she was not feeling wellShe denies any dysphagia or odynophagia. You will recall that she does have some abdominal hypersensitivity and takes amitriptyline 45 mg nightly which has been very helpfulShevan has had some mouth ulcers of unclear etiology. Her omeprazole which she typically was taking 20 mg a day had been increased to 40 mg a day and this was helpful towards the resolution of the ulcers. They are gone now and only minimally come back and she tries to avoid spicy foods or heavily spiced foods that she thinks this could have been the trigger that brought them aboutThere is no persistent nausea or vomiting or painShe has a tendency towards some constipation and then occasionally have diarrhea when she is having a flare of her IBS symptoms are more stress or anxietyHad an endoscopy in the [place] system in June 2023 that was normal aside from some diminutive benign polyps in the stomachLast colonoscopy in 2021 with a sessile serrated adenoma. Prior to that and advanced adenoma in 2019Jennifer does carry the diagnosis of IBSD and has been seen both here and at the [facility]. Her primary care provider when seeing her in April did order CBC, TSH, CMP, ESR, and CRP, which were normal. She continues on amitriptyline 45 mg nightly GI Symptoms or Concerns I had th e pleasure of having a virtual consultation with Ms. Dariana Cam. She consented to a virtual consultation. We were alone on the line together. We spoke for approximately 23 minutes and I spent an additional 15 minutes reviewing medical records and coordinating care. The level of clinical decision making was moderate to high.Chief Complaint Mouth sore, reflux, IBS.As you recall, Dariana Is a 53-year-old woman with IBSD seen today for new issue of mouth sore and what sounds like FLAIR that she began having a sore on the roof of her mouth approximately six weeks ago. She felt her mouth ears, and throat were on fire. She went to the dentist and was noted to have an ulcer that was quite large. It sounds like the dentist attempted a treatment that did not help, then her primary provider, tried an antibiotic, which did not help, then she went to an ENT provider provider who performed laryngoscopy and apparently everything was normal; however, there was concern that perhaps the symptoms were related to heartburn or reflux and so her omeprazole was increased from 20 mg a day to 40 mg a day.40 mg a day, the ulcer started healing and the mouth, throat, and ear burning improved significantly; however, she began having lower GI symptoms of intermittent loose stools and her stools changed color to be yellow.She denies any dysphagia or odynophagia. The ulcer continues to heal in his nearly gone. She does carry the diagnosis of IBSD and has been seen both here and at the [facility]. Her primary care provider when seeing her in April did order CBC, TSH, CMP, ESR, and CRP, which were normal. She continues on amitriptyline 45 mg nightly GI Symptoms or Concerns GI Symptoms or Concerns I had th e pleasure of seeing Ms. Dariana Cam in clinic today for followup of diarrhea and irritable bowel syndrome.I met Dariana in mid June 2018. She noted that symptoms had begun in mid May 2018. She experienced 8 days of severe diarrhea, going 6 to 7 times a day and felt very lethargic with abdominal pain and cramping. She said that the symptoms occurred in the context of eating out at restaurants more readily at that time. She had a CT scan of the abdomen and pelvis, which was normal as well as stool testing for blood and C. diff, which was negative and blood testing, which was all normal. 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 She tried the Align probiotics and said she felt worse and so is hesitant to try anything else and called with ongoing symptoms for which we proceeded with a colonoscopy.Colonoscopy on July 23 showed an advanced adenom GI Symptoms or Concerns Ms. Courtney Cam is a 48-year-old woman, seen in consultation at the request of Dr. Amanda Leslie for evaluation of change in bowel habits and left lower quadrant abdominal pain.Ms. Westbrook notes that symptoms began approximately 5 weeks ago and have been occurring on a daily basis since. She said she initially experienced 8 days of severe diarrhea, going 6 or 7 times a day. At that time, she felt very lethargic and was having abdominal pain and cramping. She says that these symptoms occurred in the context of eating out at restaurants more readily at that time, though she had no sick contacts with similar symptoms, no travel, no change in diet, or new medications.She was evaluated by her primary care physician and apparently had a CT scan of the abdomen and pelvis that was normal, test for occult blood in the stool, C. difficile test, and blood testing, and Dariana recalls all being completely normal.Dariana says that her symptoms did improve to the point that Functional Status Date Functional Assessmen t No Information Instructions Date Instruction Additional Infor ranulfo I suspect that the mont[place] ventura abdominal pain is GI muscle spasm, but we will get a CT scan of your abdomen and pelvis to make sure we are not missing anything in your GI organs/intestines (inflammation, cancer, ischemia, etc).The need to apply pressure intra-vaginally to make a BM is likely something called a Rectocele.This is not dangerousIf you can go normally or when applying pressure, then it is OK to live with a rectocele.If it gets harder to go however and you are struggling and the intra-vaginal pressure is not helping enough, then we should have you be seen at the pelvic floor center for formal testing because you may need a minor surgery to support/repair the rectocele hernia.Please start taking one half dose of miralax daily to soften everything.Do this for a few weeks at least to take the pressure off your GI intestine muscles to propel things forward.If you are having a lot of diarrhea, then stop.If your bowel habits are good on the miralax, then safe to use in the long-term if you like. Related to Lower abdominal pain 1. Continue amitript yline 45 mg nightly2. Continue omeprazole 20 mg daily3. Start fiber supplement daily32 minutes spent with direct [id number] discussion and education at bedside and care coordination. Thank you so much Related to Irritable bowel syndrome with diarrhea Number one, continue omeprazole 40 mg daily for the next mouth sore is completely healed healed.Number two, once mouth sore is healed. Decreased omeprazole to 20 mg daily and see if lower GI symptoms improve and whether there is a return of burning on the roof of the mouth or throat.Number three, if burning sensation returns, then increase omeprazole back to 40 mg daily and we will proceed with an endoscopy. We would also try low-dose colestipol to control lower GI symptoms as it does sound like bile acid diarrhea.Number four, may consider alternative PPI such as pantoprazole or esomeprazole.We will make a follow up appointment for her. She also says she is going to make an appointment at the male clinic. Thank you. Related to Irritable bowel syndrome with diarrhea Colon Cancer Prevention Related to Colorectal polyp detected on colonoscopy high fiber diet Related to Color ectal polyp detected on colonoscopy Diverticulosis/Diverticulitis Re lated to Colorectal polyp detected on colonoscopy Colon Polyps Related to Color ectal polyp detected on colonoscopy 1. Emphasized that s he should exercise some patience as I think her symptoms will improve as long as she continues to follow a bland diet and use her amitriptyline.2. I did offer her dicyclomine to supplement her while her symptoms continue to lupe and she wishes to observe for the time being before starting this medicine. She did ask me to send the medicine in case she wants to try it.3. She did request that I make a followup appointment in 1 month, so that she can update me at that point and I have done so.Thank you so much for involving me in the care of Ms. Cam. Related to Irritable bowel syndrome with diarrhea Colon Cancer Prevention Related to Colorectal polyp detected on colonoscopy Colon Polyps Related to Color ectal polyp detected on colonoscopy Hemorrhoids Related to Color ectal polyp detected on colonoscopy Diverticulosis/Diverticulitis Re lated to Colorectal polyp detected on colonoscopy high fiber diet Related to Color ectal polyp detected on colonoscopy 1. I gave her sample s of Align probiotic, IBgard, and peppermint oil supplement. I would like her to try these over the next week to see if there is any improvement in her symptoms. If there is improvement in symptoms, then we can continue to treat conservatively, and she will update me with this change.2. I am going to order a colonoscopy in 1 week in case there is no improvement in symptoms on the conservative measures listed above. The colonoscopy should view the terminal ileum and we will take random biopsies throughout the colon if symptoms persist. If the colonoscopy is non-diagnostic, favor a trial of dicyclomine for colon spasms/functional GI symptoms.Dariana will update me with response to the samples given today, and we will proceed with colonoscopy if no improvement.Thank you so much for involving me in the care of Ms. Cam. Related to Change in bowel habits Lifestyle education regarding di et Related to Dietary counseling and surveillance Assessments Type Assessment Date No Information Patient Care Teams Name Effective Dates (start - stop) Status Members No Information
--- OUTSIDE RECORDS SUMMARY | 2024-12-28 04:09 | XMS_ITS | Continuity of Care Document ---
Author Organization [facility] Address [address] [address] [place] [address] Phone Care Team Providers Care Carnival Worker Name Role Phone Davi Sanchez MD, Magdi [...] Diagnoses Date Provider Providers Copied on Encounter [facility], [address] [address], [place], [place], [id number], [place] tel:[phone] [facility] No Information 5 Davi Fairbanks. [address] [facility], [facility] [place], [place], [id number] , [place]. [phone] Offic/outpt E&m Estab Mod-hi 2 [facility], [address] [address], [place], [place], [id number], [place] tel:[phone] [facility] GI Symptoms or Concerns (chief complaint) Lower abdominal pain 5 Vickey Carlson. [address] [facility], [facility] [place], [address] , [place]. [phone] Referring Provider: Referral Self, USE FOR SELF REFERRALS. Offic/outpt E&m Estab Mod-hi 2 [facility], [address] [address], [place], [id number], [place] tel:[phone] [facility] GI Symptoms or Concerns (chief complaint) Irritable bowel syndrome with diarrhea 4 Vickey Carlson. [address] [facility], [place], [id number] , [place]. [phone] Referring Provider: Glenny Koroma MD, [address], [place], [address]. tel:[phone] [facility], [address] [address], [place], [place], [address], [place] tel:[phone] [facility] No Information 4 Davi Fairbanks. [address] [facility], [place], [address] , [place]. tel: [phone] [facility], [address] [address], [place], [address], [place] tel:[phone] [facility] Heartburn 4 Vickey Carlson. [address] [facility], [place], [address] , [place]. tel: [phone] Established Level 4 [facility], [address] [address], [place], [address], [place] tel:[phone] [facility] GI Symptoms or Concerns (chief complaint) HeartburnIrritable bowel syndrome with diarrheaSh[facility] sore 4 Vickey Carlson. [address] [facility], [place], [address] , [place]. tel: [phone] Referring Provider: Referral Self, USE FOR SELF REFERRALS. [facility], [address] [address], [place], [address], [place] tel:[phone] [facility] GI Symptoms or Concerns (chief complaint) Colorectal polyp detected on colonoscopyDivertic ulosisInternal hemorrhoidsEncounte r for screening for malignant neoplasm of colonPersonal history of colonic polypsBenign neoplasm of ascending colonDvrtclos of lg int w/o perforation or abscess w/o bleedingDvrtclos of lg int w/o perforation or abscess w/o bleedingBenign neoplasm of ascending colonPersonal history of colonic polyps 2 Vickey Carlson. [address] [facility], [place], [address] , [place]. tel: [phone] Referring Provider: Referral Self, USE FOR SELF REFERRALS. [facility], [address] [address], [place], [id number], [place] tel:[phone] [facility] No Information 2 Vickey Carlson. [address] [facility], [facility] [place], [address] , [place]. tel: [phone] Offic/outpt E&m Estab Mod-hi 2 [facility], [address] [address], [place], [id number], [place] tel:[phone] [facility] GI Symptoms or Concerns (chief complaint) Irritable bowel syndrome with diarrheaHeartburn 9 Vickey Carlson. [address] [facility], [facility] [address], [facility] [place], [address] , [place]. tel: [phone] Referring Provider: Referral Self, USE FOR SELF REFERRALS. [facility], [address] [address], [place], [id number], [place] tel:[phone] [facility] Colorectal polyp detected on colonoscopyChange in bowel habitDiverticulosis Internal hemorrhoidsBenign neoplasm of sigmoid colonDvrtclos of lg int w/o perforation or abscess w/o bleedingChange in bowel habitOther hemorrhoidsDvrtclos of lg int w/o perforation or abscess w/o bleedingBenign neoplasm of sigmoid colon 9 Vickey Carlson. [address] [facility], [place], [place], [address] , [place]. tel: [phone] Referring Provider: Referral Self, USE FOR SELF REFERRALS. Offic/outpt E&m New Mod-hi [facility], [address] [address], [place], [id number], [place] tel:[phone] [facility] GI Symptoms or Concerns (chief complaint) Change in bowel habitsIntermittent left lower quadrant abdominal painDietary counseling and surveillanceElevate d blood-pressure reading, w/o diagnosis of htn 9 Vickey Carlson. [address] [facility], [place], [address] , [place]. tel:[phone] Referring Provider: Referral Self, USE FOR SELF REFERRALS. Offic Cons New/estab Mod-hi 60 [facility], [address] [address], [place], [id number], [place] tel:[phone] [facility] PainDyspepsia/acid Peptic Disease 9200 6 Omar Alvarez. [address] [facility], [place], [address] , [place]. [phone] Referring [place]: [place], [address] [place], [address]. tel:[phone] Family History Family Member Type Diagnosis Age [...] democrat ID Authoriza tion(s) Blue [employer] Of [facility] [id number] Medicare NGS MB [id number] Social History Type Description Quantity Date Captured [...] Months Appointment date/timeframe: 3 Months ordered Appointment Daraina Cam BOOKED History Of Present Illness Encounter [...] As you r luciana Dariana Is a 53-year-old woman with IBSD seen today for follow-up of what was likely a flare of IBSShevan stated that she had a 3-week episode where she had horrible indigestion. Orgas a fullness and discomfort across her upper [...] stress or anxietyHad an endoscopy in the [facility] in June 2023 that was normal aside from some diminutive benign polyps in the stomachLast colonoscopy in 2021 with a sessile serrated adenoma. Prior to that and advanced adenoma in 2019Jennifer does carry the diagnosis of IBSD and has been seen both here and at the [facility]. Her primary care provider when seeing [...] been seen both here and at the [facility]. Her primary care provider when seeing [...] miralax, then safe to use in the detention if you like. Related to Lower abdominal pain 1. Continue amitript yline 45 mg nightly2. Continue omeprazole 20 mg daily3. Start fiber supplement daily32 minutes spent with direct [id number] discussion and education at bedside and care [...]
--- OUTSIDE RECORDS SUMMARY | 2024-12-30 20:28 | XMS_ITS | Encounter Summary ---
Author Organization [facility] Address [address] [place] [address] Care Team Providers Care Produce Team Lead Name Role Phone Amanda Leslie MD Unavailable Unavailable Amanda Leslie MD Unavailable Unavailable Amanda Leslie MD Primary Care Provider Unavailab Amanda Duke MD Unavailable Unavailable Renetta Garcia PA-C Unavailable [phone] Amanda Leslie MD Unavailable Unavailable Renetta Garcia PA-C Unavailable [phone] [facility] Primary Ca re Provider Amanda Leslie MD Unavailable Unavailable Renetta Garcia PA-C Unavailable [phone] [facility] Unavailabl e Reason for Visit * Reason Comments Medication Refill Encounter Details Date Type Department Care Team (Late st Contact Info) Description 08/01/2020 Refill [facility] [id number] [place] [id number] Amanda Leslie MD Medication Refill Social History Tobacco Use Types Packs/Day Years Used Date Smoking Tobacco: Every Day Cigarettes 0.3 24 Smokeless Tobacco: Never Alcohol Use Standard Drinks/Week Comments No 0 (1 standard drink = 0.6 oz pur e alcohol) PHQ-2 Answer Date Recorded PHQ-2 Score 0 07/27/2019 Comments No Sex and Gender Information Value Date Recorded Sex Assigned at Not on file 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 No / Unsure 07/25/2020 2:58 PM CDT documented as of this encounter Miscellaneous Notes * Telephone Encounter - Haritha Gallegos RN - 08/03/2020 8:30 AM CDT Prescription approved per [facility] protocol. Haritha Gallegos RN on 08/03/2020 at 8:30 AM * Telephone Encounter - Shiloh Frazier - 08/01/2020 12:13 PM CDT Spoke with Dariana, states that pharmacy was only filling the 25mg, and removed the 10 mg from her file. 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 documented as of this encounter Care Teams Produce Team Lead Relationship Specialty Start Date End Date Amanda Leslie MD PCP - General Family Practice 11/16/10 09/24/21 [facility] [id number] [place] [address] PCP - General 09/25/21 Amanda Leslie MD [facility] 11/16/10 Amanda Leslie MD [facility] 11/16/10 Amanda Leslie MD Assigned PCP 12/19/11 08/09/20 Renetta Garcia PA-C [address] [place] [address] Assigned PCP 08/10/20 09/28/20 Amanda eLslie MD Assigned PCP 09/29/20 12/16/20 Renetta Garcia PA-C [address] [place] [address] Assigned PCP 12/17/20 01/25/22 Amanda Leslie MD Assigned PCP 01/26/22 03/22/22 Renetta Garcia PA-C [address] [facility] [place] [address] Assigned PCP 03/23/22 09/06/23 [facility] [address] [facility] [place] [place] [address] Assigned PCP 09/07/23 11/06/23 documented as of this encounter
--- OUTSIDE RECORDS SUMMARY | 2024-12-30 20:28 | XMS_ITS | Clinical Summary ---
Author Organization [facility] Address [address] [place] [address] Care Team Providers Care Infant Babysitter Name Role Phone Unavailable Primary Care Provider Unavailabl e Source Comments Patient records contain information from all sites at [facility]. For routine questions regarding patient records, call [phone] during business hours, M-F 8:00 AM - 5:00 PM Central Time. Record requests for emergency care only can be directed to [phone] at any time.[facility] Allergies Active Allergy Reactions Criticality Noted Date Comments Azithromycin GI intolerance,Nause a And Vomiting,Nausea Only Medium 10/14/2002 Can tolerate IV or IM, not PO GI Cefprozil Nausea And Vomiting,Nausea Only 08/28/2004 Cephalexin Nausea And Vomiting,Nausea Only Medium 08/18/2004 Can tolerate IV or IM, not PO House Dust Mite Other (see comments) 06/27/2023 Congestion, itchy eyes and sneezing Nitrofurantoin Nausea And Vomiting,Nausea Only Medium 04/21/2013 Can tolerate IV or IM, not PO nausea Pollen Extracts Other (see comments) Low 06/27/2023 Congestion, sneezing and itchy eyes. Quinolones Nausea And Vomiting,Nausea Only Medium 02/17/2009 Can tolerate IV or IM, not PO Ranitidine Headache 07/21/2006 Medications amitriptyline (ELAVIL) 10 mg tablet Take 10 mg by mouth at bedtime. TAKE 2 TABLETS BY MOUTH ALONG WITH 25 MG TO MAKE 45 MG AT AT BEDTIME. IF HAVING INCREASE IN ABDOMINAL SYMPTOMS, MAY TAKE AN ADDITIONAL 10-20 MG EACH NIGHT. Instructions: TAKE 2 TABLETS BY MOUTH ALONG WITH 25 MG TO MAKE 45 MG AT AT BEDTIME. IF HAVING INCREASE IN ABDOMINAL SYMPTOMS, MAY TAKE AN ADDITIONAL 10-20 MG EACH NIGHT 1 Active azelastine (ASTELIN) 137 mcg/spray (0.1 %) nasal spray Administer 1 spray into nostril(s) as needed. ON HOLD Haven't started using. 06/26 4 Active chlorhexidine (PERIDEX) 0.12 % mouthwash Swish and spit daily. 4 Active ibuprofen (ADVIL,MOTRIN) 200 mg tablet Take 200 mg by mouth as needed. Active ketoconazole (NIZORAL) 2 % shampoo Apply 1 Application topically daily as needed. 0 Active Lorazepam (ATIVAN) 0.5 mg solutab Take 0.5 mg by mouth as needed for anxiety. Take half a tablet as needed Active mometasone (NASONEX) 50 mcg/actuation nasal spray Administer 2 sprays into nostril(s) daily. 4 Active omeprazole (PriLOSEC OTC) [address] tablet Take 1 tablet by mouth 2 (two) times a day. 4 Active sulfamethoxazol e-trimethoprim (BACTRIM DS) 800-160 mg per tablet Take 1 tablet by mouth as needed. 9 Active sulfamethoxazol e-trimethoprim (Bactrim DS) 800-160 mg per tablet Take 1 tablet by mouth daily as needed. 4 Active LORazepam (Ativan) 0.5 mg tablet Take 0.5 mg by mouth at bedtime as needed for anxiety. 3 Active amitriptyline (ElaviL) 10 mg tablet Take 10 mg by mouth at bedtime. Active amitriptyline (ElaviL) 25 mg tablet Take 25 mg by mouth at bedtime. Active omeprazole (PriLOSEC) [address] capsule Take 20 mg by mouth daily before morning meal. Active clobetasoL (Temovate) 0.05 % gelIndications: Ulcer Oral Apply 1 Application topically 2 (two) times a day. After biopsy, apply to ulcers in the mouth. 60 g 3 4 Active Active Problems Problem Noted Date Diagnosed Date Lesion Oral 02/18/2024 Family History Medical History Relation Name Comments Colon polyps Father Domingo Hypertension Father Domingo Lung cancer Father Domingo Hypertension Mother O'Neill Osteoporosis Mother Vivian Skin cancer Mother O'Neill Thyroid cancer Mother Vivian Relation Name Status Comments Father Domingo Mother O'Neill Social History Tobacco Use Types Packs/Day Years Used Date Smoking Tobacco: Every Day Cigarettes 0.5 36.6 Started: 06/03/1988 Passive Smoke Exposure: Never Smokeless Tobacco: Never Tobacco Cessation:Ready to Q uit: Not Asked; Counseling Given: Not Answered Alcohol Use Standard Drinks/Week Comments Not Currently 1 (1 standard drink = 0.6 oz pur e alcohol) Very infrequent [facility] Utilities Answer Date Recorded In the past 12 months has e electric, gas, oil, or water company threatened to shut off services in your home? No 06/26/2023 Hunger Vital Sign Answer Date Recorded Within the past 12 months, y ou worried that your food would run out before you got the money to buy more. Never true 06/26/19 24 Within the past 12 months, t he food you bought just didn't last and you didn't have money to get more. Never true 06/26/2023 PRAPARE - Transportation Answer Date Re corded In the past 12 months, has l ack of transportation kept you from medical appointments or from getting medications? No 06/15 In the past 12 months, has l ack of transportation kept you from meetings, work, or from getting things needed for daily living? No 06/26/2023 Housing Stability Answer Date Recorded What is your living situation today? 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 Gender Identity Female 06/26/2023 2:06 AM CDT Sexual Orientation Straight 06/26/2023 2: 06 AM CDT Last Filed Vital Signs Vital Sign Reading Time Taken Comments Blood Pressure 119/73 07/14/2023 11:15 AM CDT Pulse 72 07/14/2023 11:15 AM CDT Temperature 36.7 C (98.1 F) 07/14/2023 10:53 AM CDT Respiratory Rate 16 07/14/2023 11:1 5 AM CDT Oxygen Saturation 89% 07/14/2023 11: 15 AM CDT Inhaled Oxygen Concentration - - Weight 78.8 kg (173 lb 11.6 oz) 07/14/2023 9:45 AM CDT Height 160 cm (5' 2.99) 07/14/2023 9:45 AM CDT Body Mass Index 30.78 07/14/2023 9:45 AM CDT Plan of Treatment Health Maintenance Due Date Last Done Comments CT Colonography 1970 Cologuard 1970 HIV Screening 1970 Hepatitis C Screening 1970 Mammogram 1970 Tobacco Cessation counseling 1970 Hepatitis B Vaccines (1 of 3 - 19+ 3-dose series) 1989 Pneumococcal vaccine (50+ years) (1 of 2 - PCV) 1989 Zoster Vaccines (1 of 2) 01/03/2020 Depression Screening (Annual PHQ-2) 03/17/2024 COVID-19 Vaccine ( - season) 2024 Influenza Vaccine (#1) 2024 Colonoscopy 09/18/2026 09/18/2021 Colorectal Cancer Surveillance 09/18/2026 Fasting Glucose for Diabetes Screening 11/25/2026 11/26/2023, 07/28/2023, 04/09/2023, Additional history exists Lipid (Cholesterol) Screening 07/27/2028 07/28/2023, 10/11/2020 DTaP,Tdap,and Td Vaccines (3 - Td or Tdap) 07/29/2033 07/30/2023, 01/14/2017, 03/17/2003 IPV Vaccines Aged Out No longer eligi ble based on patient's age to complete this topic Medical Devices Implanted Type Area Manager Rehab Device Identifier Shelf Expiration Date Model / Serial / Lot Hardware E.G. Pins/Screws/R ods-06/15/1998 Implanted:03/1998 (Quantity not on file) Hardware e.g. pins/screws/ rods Left: Knee Description:Tore ACL and scr ews placed in right knee Hardware E.G. Pins/Screws/R ods-08/16/2015 Implanted:03/2015 (Quantity not on file) Hardware e.g. pins/screws/ rods Left: Second Toe Description:Screw placed in the second toe. Unsure of exact date. Insurance [employer] [facility] [place] [address] MEDICARE
--- OUTSIDE RECORDS SUMMARY | 2024-12-30 20:28 | XMS_ITS | Patient Health Record ---
Author Organization [facility] Address [address] [place] [address] Care Team Providers Care Vp Revenue Cycle Name Role Phone Tiago Ordoñez Primary Care Provider CARISSA Peralta Unavailable [phone] None, None Unavailable Unavailable Allergies Allergen (clinical drug ingredient) Drug/Non Drug Allergy documented on EMR Reaction Allergy Type Onset Date Status Keflex Unknown Drug Allergy Active nitrofurantoin, macrocrystals / nitrofurantoin, monohydrate Macrobid Unknown Drug Allergy Active azithromycin Zithromax Unknown Drug Allergy Acti ve Reason For Referral No Information Medications Medication SIG (Take, Route, Fr equency, Duration) Notes Start Date End Date Status Amitriptyline HCl Ac tive Omeprazole Active Social History Tobacco Use: Social History Observation Description Date Details (start date - stop date) Light tobacco s moker NA - NA Social History Alcohol Use: Social Info Question Answer Notes Recreational drugs Recreational Drug Use: No Alcohol Screen Did you have a drink containing alcohol in the past year? Yes How often did you have a drink containing alcohol in the past year? Monthly or less (1 point) How many drinks did you have on a typical day when you were drinking in the past year? 1 or 2 drinks (0 point) How often did you have 6 or more drinks on one occasion in the past year? Never (0 point) Points 1 Interpretation Negative Tobacco Use: Social Info Question Answer Notes Tobacco use/smoking Are you a light tobacco smoker How often do you smoke cigarettes? every day How many cigarettes a day do you smoke? 5 or less How soon after you wake up do you smoke your first cigarette? after 60 minutes Are you interested in quitting? 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 Problems Problem Type SNOMED Code ICD Code Onset Dates Problem Status W/U Status Risk Notes Problem Seasonal allergic rhinitis (934877490) Other seasonal allergic rhinitis (J30.2) Active confirmed Problem Sore throat (128302192) Sore throat (J02.9) Active confirmed Problem Smoking (51940046) Smoking (F17.200) Active con firmed Problem Laryngopharyngeal reflux (516345482) Laryngopharyngeal reflux (LPR) (K21.9) Active confirmed Problem Palatal lesion (K13.79) Active confirmed Problem Otalgia of left ear (finding) (0418860726) Otalgia, left ear (H92.02) Active confirmed Problem Abnormal auditory perception (45657748) Other abnormal auditory perceptions, bilateral (H93.293) Active confirmed Problem Excessive salivation (64626239) Salivation excessive (K11.7) Active confirmed Plan Of Treatment No Information Insurance Providers Payer Name Payer Address Payer Phone Subscriber Number Group Number Insured Name Patient Relationship to Insured Coverage Start Date Coverage End Date [facility] [address] [address] [place] [address] [id number] Aldo Brown Spouse - patient is the spouse of the insured MEDICARE SECONDARY [address] [place] [address] [id number] Dariana Brown Self - patient is the insured 0 Medical (General) History Medical History History ICD Code Chronic TBI Conditions/Illness:: Anxiety undefined Surgical History Surgery Date(Month/Year) hysterectomy ACL Capsule repair
--- OUTSIDE RECORDS SUMMARY | 2024-12-30 20:28 | XMS_ITS | Clinical Summary ---
Author Organization [facility] Address [address] [place] [address] Care Team Providers Care Checkman Name Role Phone Amanda Leslie MD Primary Care Provider [phone] Source Comments You are receiving this document as you are listed as the primary care provider,follow-up provider, or the patient has been referred to you for consultation.This is in compliance with the Medicare and[facility] EHR Incentive Program,which states Providers who transition their patient to another setting of careor provider of care or refers their patient to another provider of care shouldprovide summary care record for each transition of care or referral. [employer] Allergies Active Allergy Reactions Criticality Noted Date Comments Azithromycin Nausea And Vomiting 05/17/2015 Cefprozil Nausea And Vomiting 05/17/2015 Cephalexin Nausea And Vomiting 05/17/2015 Nitrofurantoin Nausea And Vomiting 05/17/2015 Quinolones Nausea And Vomiting 05/17/2015 Medications amitriptyline (AKA ELAVIL) 25 MG tabletIndicatio ns:MALLIKA ACEVEDO July 25, 2015 1:47 PM Received from: External Pharmacy 45 mg. Indications: MALLIKA ACEVEDO July 25, 2015 1:47 PM Received from: External Pharmacy 98 06/27/2015 Active LORazepam (AKA ATIVAN) 0.5 MG tabletIndicatio ns:MALLIKA ACEVEDO July 25, 2015 1:47 PM Received from: External Pharmacy Indications: PN: MALLIKA ACEVEDO July 25, 2015 1:47 PM Received from: External Pharmacy 0 05/02/2015 Active ibuprofen (MOTRIN) 400 MG tablet Take 1 Tablet (400 mg) by mouth every 6 hours as needed for Pain. Active omeprazole (PRILOSEC) 10 MG capsule Take 1 Capsule (10 mg) by mouth. 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 Encounters Date Type Department Care Team Description 12/27/2024 3:00 PM CDT Therapy [facility] Physical [address] [address] Mejia Cameron, PT Cervicalgia (Primary Dx) 12/23/2024 Orders Only HIM DEPARTMENT Provider, MD Dheeraj 12/22/2024 3:00 PM CDT Office Visit [address] [address] Juan Shelley MD Traumatic complete tear of right rotator cuff, initial encounter (Primary Dx) 12/22/2024 Notes/Orders [address] [address] Juan Shelley MD Traumatic complete tear of right rotator cuff, initial encounter (Primary Dx) 12/21/2024 1:45 PM CDT Therapy [address] [address] Mejia Cameron, PT Cervicalgia (Primary Dx) 12/13/2024 3:30 PM CDT Office Visit [address] [address] Ann Marie Mandujano MD Nontraumatic complete tear of right rotator cuff (Primary Dx); Neck pain; Pain amplification syndrome 12/13/2024 9:45 AM CDT Therapy [address] [address] Mejia Cameron, PT Cervicalgia (Primary Dx) 12/06/2024 3:00 PM CDT Therapy [address] [address] Mejia Cameron, PT Cervicalgia (Primary Dx) 12/04/2024 12:05 AM CDT Ancillary Procedure [facility] [address] [place] [address] Provider, Foreign Images 12/04/2024 Ancillary Procedure [facility] [address] [place] [address] Provider, Foreign Images 12/03/2024 Telephone [facility] Orth[facility] [address] [place] [address] Ann Marie Mandujano MD APPOINTMENT REQUEST (MRI Results) 11/30/2024 11:15 AM CDT Therapy [facility] Physical Therapy [place] [address] [place] [address] Jose A Doyle, PT Cervicalgia (Primary Dx) 11/29/2024 2:00 PM CDT Office Visit [facility] [address] [place] [address] Ann Marie Mandujano MD Neck pain (Primary Dx) 11/29/2024 1:55 PM CDT Ancillary Procedure [facility] [address] [place] [address] Ann Marie Mandujano MD Neck pain from Last 3 Months Family History Medical History Relation Name Comments Cancer, Lung Father Arthritis Mother Cancer, Thyroid Mother Relation Name Status Comments Father Mother Social History Tobacco Use Types Packs/Day Years Used Date Smoking Tobacco: Every Day Cigarettes Smokeless Tobacco: Never Tobacco Cessation:Ready to Q uit: Not Asked; Counseling Given: Not Answered Alcohol Use Standard Drinks/Week Comments Yes 0 (1 standard drink = 0.6 oz pur e alcohol) socially Comments Unknown Sex and Gender Information Value Date Recorded Sex Assigned at Not on file Legal Sex Female 7:00 AM CDT Gender Identity Not on file Sexual Orientation Not on file Last Filed Vital Signs Vital Sign Reading Time Taken Comments Blood Pressure 131/71 07/30/2023 11:58 AM CDT Pulse 94 07/30/2023 11:58 AM CDT Temperature 36.9 C (98.5 F) 07/30/2023 11:58 AM CDT Respiratory Rate 18 07/30/2023 11:58 AM CDT Oxygen Saturation 97% 07/30/2023 11:58 AM CDT Inhaled Oxygen Concentration - - Weight 70.3 kg (155 lb) 12/22/2024 2:53 PM CDT Height 154.9 cm (5' 1) 12/22/2024 2:53 PM CDT Body Mass Index 29.29 12/22/2024 2:53 PM CDT Plan of Treatment Upcoming Encounters Date Type Department Care Team (Latest Contact Info) Description 01/06/2025 5:00 PM CDT Appointment [facility] [address] [address] [place] [address] [place] [address] 01/10/2025 1:00 PM CDT Appointment [facility] [address] [place] [address] Ann Marie Mandujano MD [address] [place] [address] [place] [id number] 01/10/2025 3:00 PM CDT Appointment [facility] [address] [address] [place] [address] [place] [address] 01/13/2025 5:00 PM CDT Appointment [facility] [address] [address] [place] [address] [place] [address] 02/08/2025 12:25 PM SALES CONSULTANT RESIDENTIAL MANAGER Hospital Encounter [facility] [address] [place] [address] Juan Shelley MD [address] [facility] [place] [address] 02/08/2025 12:25 PM SALES CONSULTANT RESIDENTIAL MANAGER - 02/08/2025 2:20 PM SALES CONSULTANT RESIDENTIAL MANAGER Surgery [facility] [address] [place] [address] Juan Shelley MD [address] [facility] [place] [address] Shoulder Arthroscopic Rotator Cuff Repair 02/15/2025 11:30 AM SALES CONSULTANT RESIDENTIAL MANAGER Appointment [facility] [place] [address] [place] [address] [place] [address] [place] [id number] 02/17/2025 2:45 PM SALES CONSULTANT RESIDENTIAL MANAGER Appointment [facility] [place] [address] [place] [address] [place] [address] [place] [address] 02/18/2025 2:40 PM SALES CONSULTANT RESIDENTIAL MANAGER Appointment [facility] [address] [place] [address] Juan Shelley MD [address] [facility] [place] [address] 02/21/2025 3:00 PM SALES CONSULTANT RESIDENTIAL MANAGER Appointment [facility] [place] [address] [place] [address] [place] [address] [place] [address] 02/24/2025 2:45 PM SALES CONSULTANT RESIDENTIAL MANAGER Appointment [facility] [place] [address] [place] [address] [place] [address] [place] [address] 02/28/2025 3:00 PM SALES CONSULTANT RESIDENTIAL MANAGER Appointment [facility] [place] [address] [place] [address] [place] [address] [place] [address] 03/03/2025 2:45 PM SALES CONSULTANT RESIDENTIAL MANAGER Appointment [facility] [place] [address] [place] [address] [place] [address] [place] [address] 03/07/2025 3:00 PM SALES CONSULTANT RESIDENTIAL MANAGER Appointment [facility] [place] [address] [place] [address] [place] [address] [place] [address] 03/11/2025 3:00 PM SALES CONSULTANT RESIDENTIAL MANAGER Appointment [facility] [place] [address] [place] [address] [place] [address] [place] [address] 03/14/2025 3:00 PM SALES CONSULTANT RESIDENTIAL MANAGER Appointment [facility] [place] [address] [place] [address] [place] [address] [place] [address] 03/18/2025 3:15 PM SALES CONSULTANT RESIDENTIAL MANAGER Appointment [facility] [address] [address] [place] [address] [place] [address] 03/21/2025 3:00 PM SALES CONSULTANT RESIDENTIAL MANAGER Appointment [facility] [place] [address] [place] [address] [place] [address] [place] [address] 03/24/2025 2:45 PM SALES CONSULTANT RESIDENTIAL MANAGER Appointment [facility] Physical [facility] [address] [place] [address] [place] [address] [place] [address] 03/25/2025 2:40 PM SALES CONSULTANT RESIDENTIAL MANAGER Appointment [facility] [address] [place] [address] Juan Shelley MD [address] [facility] [place] [address] 03/28/2025 3:00 PM SALES CONSULTANT RESIDENTIAL MANAGER Appointment [facility] [place] [address] [place] [address] [place] [address] [place] [address] 04/04/2025 3:00 PM SALES CONSULTANT RESIDENTIAL MANAGER Appointment [facility] [address] [place] [address] [place] [address] [place] [address] 04/11/2025 3:00 PM SALES CONSULTANT RESIDENTIAL MANAGER Appointment [facility] [place] [address] [place] [address] [place] [address] [place] [address] 06/08/2025 2:40 PM CDT Appointment [facility] [address] [place] [address] Juan Shelley MD [address] [facility] [place] [address] Scheduled Procedures Name Priority Associated Diagnoses Date/Ti me ARTHROSCOPIC REPAIR ROTATOR CUFF SHOULDER SMALL Traumatic complete tear of right rotator cuff, initial encounter 02/08/2025 12:25 PM SALES CONSULTANT RESIDENTIAL MANAGER Health Maintenance Due Date Last Done Comments Cervical Cancer Screening Due 1970 Colon Cancer Screening Plan Due 1970 Hep C Screening (Preventive Services) 1970 Medicare Annual Wellness Visit 1970 Mammogram 1970 HepB Vaccine (1) 1989 Pneumococcal Vaccine 50+ Yrs (1 of 2 - PCV) 1989 Cholesterol 2015 Zoster/Shingles Vaccine (1 o f 2) 01/03/2020 COVID-19 Vaccine (1 - 2023-2 5 season) 2024 Influenza Vaccine (#1) 2024 Diabetes Screening- (based o n age and BMI) 07/27/2026 07/28/2023 DTaP/Tdap/Td Vaccine (3 - Tdap) 07/29/2033 07/30/2023, 01/14/2017, 03/17/2003 RSV Vaccine (1 - 1-dose 75+ series) 2045 HIV Screening (Preventive Services) Completed 07/28/2023 HepA Vaccine Aged Out No longer eligi ble based on patient's age to complete this topic Hib Vaccine Aged Out No longer eligi ble based on patient's age to complete this topic IPV (Polio) Vaccine Aged Out No longe r eligible based on patient's age to complete this topic MCV4 Vaccine Aged Out No longer eligi ble based on patient's age to complete this topic Meningococcal B Vaccine Aged Out No l onger eligible based on patient's age to complete this topic Procedures Procedure Name Priority Date/Time Associated Diagnosis Comments MRI-SCAN 12/23/2024 FOREIGN IMAGE(S) MR C-SPINE WO IV CONT Routine 12/04/2024 12:05 AM CDT FOREIGN IMAGE(S) MR SHOULDER RT Routine 12/04/2024 12:00 AM CDT XR CERVICAL SPINE 2 VIEWS Routine 11/29/2024 2:03 PM CDT Neck pain from Last 3 Months Results * MRI-SCAN (12/23/2024) us Interface Provider DUMMY/OTHER/AR Final Resu lt * XR Cervical Spine 2 Views (11/29/2024 [...] Marie Mandujano MD RAD GD Final Result from Last 3 Months [id number] [id number] [place]IC[place] MED[place]ARE Care Teams Checkman Relationship Specialty Start Date End Date Amanda Leslie MD [address] [id number] PCP - General 05/04/15
--- OUTSIDE RECORDS SUMMARY | 2024-12-30 20:28 | XMS_ITS | Encounter Summary ---
Author Organization [facility] Address [address] [place] [address] Care Team Providers Care J2Ee Consultant Name Role Phone Amanda Leslie MD Primary Care Provider [phone] Encounter Details Date Type Department Care Team (Late st Contact Info) Description 09/08/2015 Orders Only [facility] Orth[facility] [address] [place] [address] [place] [address] Ge Wood, DPM [address] [facility] LIZBETH [place]BERTO [id number] Social History Tobacco Use Types Packs/Day Years Used Date Smoking Tobacco: Never Assessed Comments Unknown Sex and Gender Information Value Date Recorded Sex Assigned at Not on file Legal Sex Female 7:00 AM CDT Gender Identity Not on file Sexual Orientation Not on file documented as of this encounter Plan of Treatment Upcoming Encounters Date Type Department Care Team (Latest Contact Info) Description 01/06/2025 5:00 PM CDT Appointment [facility] [place] [address] [facility] [place] [id number] [place] [address] [place] [address] 01/10/2025 1:00 PM CDT Appointment [facility] [address] [place] [address] [place], [place] [phone] Ann Marie Mandujano MD [address] [facility] [place] [address] 01/10/2025 3:00 PM CDT Appointment [facility] [place] [address] [place] [address] [place] [address] [place] [address] 01/13/2025 5:00 PM CDT Appointment [facility] [place] [address] [place] [address] [place] [address] [place] [address] 02/08/2025 12:25 PM EXCELLENCE SPECIALIST Hospital Encounter [facility] [address] [place] [address] Juan Shelley MD [address] [facility] [place] [address] 02/08/2025 12:25 PM EXCELLENCE SPECIALIST - 02/08/2025 2:20 PM EXCELLENCE SPECIALIST Surgery [facility] [address] [address] Juan Shelley MD [address] [place] [address] [place] [address] Shoulder Arthroscopic Rotator Cuff Repair 02/15/2025 11:30 AM EXCELLENCE SPECIALIST Appointment [facility] [place] [address] [place] [address] [place] [address] [place] [address] 02/17/2025 2:45 PM EXCELLENCE SPECIALIST Appointment [facility] [address] [address] [place] [address] [place] [address] 02/18/2025 2:40 PM EXCELLENCE SPECIALIST Appointment [facility] [place] [address] [place] [address] Juan Shelley MD [address] [facility] [place] [address] 02/21/2025 3:00 PM EXCELLENCE SPECIALIST Appointment [facility] [place] [address] [place] [address] [place] [address] [place] [address] 02/24/2025 2:45 PM EXCELLENCE SPECIALIST Appointment [facility] [address] [address] [place] [address] [place] [address] 02/28/2025 3:00 PM EXCELLENCE SPECIALIST Appointment [facility] [place] [address] [place] [address] [place] [address] [place] [place] [address] 03/03/2025 2:45 PM EXCELLENCE SPECIALIST Appointment [facility] [place] [address] [place] [address] [place] [address] [place] [place] [address] 03/07/2025 3:00 PM EXCELLENCE SPECIALIST Appointment [facility] [address] [address] [place] [address] [place] [place] [address] 03/11/2025 3:00 PM EXCELLENCE SPECIALIST Appointment [facility] [place] [address] [place] [address] [place] [address] [place] [address] 03/14/2025 3:00 PM EXCELLENCE SPECIALIST Appointment [facility] [place] [address] [place] [address] [place] [address] [place] [address] 03/18/2025 3:15 PM EXCELLENCE SPECIALIST Appointment [facility] [place] [address] [place] [address] [place] [address] [place] [address] 03/21/2025 3:00 PM EXCELLENCE SPECIALIST Appointment [facility] [place] [address] [place] [address] [place] [address] [place] [address] 03/24/2025 2:45 PM EXCELLENCE SPECIALIST Appointment [facility] [place] [address] [place] [address] [place] [address] [place] [address] 03/25/2025 2:40 PM EXCELLENCE SPECIALIST Appointment [facility] [place] [address] [place], [place] [address] [place] [address] Juan Shelley MD [address] [facility] [place] [address] 03/28/2025 3:00 PM EXCELLENCE SPECIALIST Appointment [facility] [place] [address] [place] [address] [place] [address] [place] [address] 04/04/2025 3:00 PM EXCELLENCE SPECIALIST Appointment [facility] [place] [address] [place] [address] [place] [address] [address] [place] [address] 04/11/2025 3:00 PM EXCELLENCE SPECIALIST Appointment [facility] [place] [address] [place] [address] [place] [address] [place] [address] 06/08/2025 2:40 PM CDT Appointment [facility] [address] [place], [place] [address] Juan Shelley MD [address] [facility] [place] [address] Scheduled Procedures Name Priority Associated Diagnoses Date/Ti me ARTHROSCOPIC REPAIR ROTATOR CUFF SHOULDER SMALL Traumatic complete tear of right rotator cuff, initial encounter 02/08/2025 12:25 PM EXCELLENCE SPECIALIST documented as of this encounter Visit Diagnoses Not on filedocumented in this encounter Care Teams J2Ee Consultant Relationship Specialty Start Date End Date Amanda Leslie MD [address] [address] PCP - General 05/04/15 documented as of this encounter
--- OUTSIDE RECORDS SUMMARY | 2024-12-30 20:28 | XMS_ITS | Clinical Summary ---
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 [address] Patient Name: Dariana Cam Gender: Female Exam Date: 09/18/2021 Visit Number: [id number] Age: 51 Years Date of : 1970 Attending MD: Aldo Hurd MD Medical Record#: [id number] Procedure: Colonoscopy Indications: Previous advanced adenomatous polyp(s) Referring MD: Referral Self Primary MD: Renetta Lezama MD Medications: Admitting Medications: Lactated Ringers Ondansetron Hydrochloride (Zofran) given 4mg by IV Intra Procedure Medications: Patient received monitored anesthesia care. Complications: No immediate complications Procedure: An examination of the heart and lungs was performed and found to be withinacceptable limits. . The patient was therefore deemed a reasonablecandidate for endoscopy and sedation. The risks and benefits of the procedure were explained to the patient.After obtaining informed consent, the patient received monitoredanesthesia care and I passed the scope without difficulty via the rectum to the cecum. The appendiceal orificeand ic valve were identified. The scope was retroflexed during theexamination The quality of the prep was good (Miralax/Gatorade/2 tabletsBisacodyl/Magnesium Citrate). This was a complete examination throughout the entire colon. Findings: Polyp location: ascending colon. Quantity: 1. Size: 3 mm. Polyp shape:flat lesion. Maneuver: polypectomy was performed with a cold biopsy forceps. Removal: complete. Retrieval: complete. Bleeding: none. Diverticulosis. Location: - sigmoid. Quantity: several. Anal canal: internal hemorrhoid(s) Impression: Colorectal polyp detected on colonoscopy Diverticulosis Internal hemorrhoids Preliminary Plan: Repeat colonoscopy in 5 years for polyp surveillance Pathology Results: A: COLON, ASCENDING, POLYP: 1. Sessile serrated adenoma 2. Negative for overt dysplasia 3. Per the colonoscopy report: a. Polyp size: 3 mm b. Resection: Complete c. Retrieval: Complete MICROSCOPIC A: Performed Electronically signed by: Julien Arce MD Interpreted at [facility], [address] [place] [address] Orders Instruction(s)/Education: Instruction/Education Timeframe Assessment Colon Cancer Prevention K63.5 Colon Polyps K63.5 Diverticulosis/Diverticulitis K63.5 high fiber diet K63.5 Final Plan: Repeat colonoscopy in 5 years for Polyp surveillance. We will attempt to contact you at appropriate intervals via U.S. mail. Wemay not be able to find you or contact you at that time, therefore youshould know that the responsibility for following our recommendation restswith you. If you don't hear from us at the time your procedure is due,please contact our office to schedule an appointment. If your contactinformation should change, please contact our office so that we can updateyour record. _Electronically signed by: Aldo Hurd MD 09/18/2021 cc: Renetta Lezama MD Aldo Hurd MD OTHER Vale l Result from Last 3 Months or Most Recently Relevant to Health Maintenance Insurance [facility] MEDICARE PART B HB ONLY MEDICARE PB ONLY Care Teams Machine Plate Stacker Relationship Specialty Start Date End Date Glenny Koroma MD [address] [place] [address] PCP - General Family Practice 04/07/23 Sharron Cline MD [address] [facility] [address] [place] [address] Obstetrics and Gynecology 04/20/19
--- OUTSIDE RECORDS SUMMARY | 2024-12-30 20:28 | XMS_ITS | Encounter Summary ---
Author Organization [place] Address [address] [place] [address] Care Team Providers Care Injection Maintenance Technician Name Role Phone Amanda Leslie MD Unavailable Unavailable Amanda Leslie MD Unavailable Unavailable Amanda Leslie MD Primary Care Provider Unavailab Renetta Chapman PA-C Unavailable [phone] Amanda Leslie MD Unavailable Unavailable Renetta Garcia PA-C Unavailable [phone] [facility] Primary Ca re Provider Amanda Leslie MD Unavailable Unavailable Renetta Garcia PA-C Unavailable [phone] [facility] Unavailabl e Reason for Visit * Reason Onset Date Comments Medication Refill 08/17/2020 Amitriptyline Encounter Details Date Type Department Care Team (Late st Contact Info) Description 08/16/2020 Refill [facility] [address] [place] [address] Amanda Leslie MD Medication Refill (Amitriptyline) Social History Tobacco Use Types Packs/Day Years Used Date Smoking Tobacco: Every Day Cigarettes 0.3 24 Smokeless Tobacco: Never Alcohol Use Standard Drinks/Week Comments No 0 (1 standard drink = 0.6 oz pur e alcohol) PHQ-2 Answer Date Recorded PHQ-2 Score 0 07/27/2019 Comments No Sex and Gender Information Value Date Recorded Sex Assigned at Not on file Legal Sex Female 3:26 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 Does she know that #360 of the 10 mg was recently sent? * Telephone Encounter - Danielle Hu RN - 08/17/2020 4:05 PM CDT amitriptyline (ELAVIL) 25 MG tablet Last Written Prescription Date: 02/01/2020 Last Fill Quantity: 180, # refills: 5 Last office visit: 07/25/2020 with prescribing provider: Dr. Leslie Office Visit: amitriptyline (ELAVIL) 10 MG tablet Last Written Prescription Date: 08/03/2020 Last Fill Quantity: 360, # refills: 0 Last office visit: 07/25/2020 with prescribing provider: Dr. Mariama Mendez Office Visit: Danielle Hu RN documented in this encounter Plan of Treatment Not on file documented as of this encounter Visit Diagnoses Diagnosis Nausea Nausea alone Nonulcer dyspepsia Dyspepsia and other specified disorders of function of stomach documented in this encounter Additional Health Concerns Assessment Noted Time PHQ-9 Depression Total Score: 4 02/03/20 20 10:18 AM MI[employer]OSO[employer] BI DEVELOPER documented as of this encounter Care Teams Injection Maintenance Technician Relationship Specialty Start Date End Date Amanda Leslie MD PCP - General Family Practice 11/16/10 09/24/21 Clinic - [facility] [address] [address] PCP - General 09/25/21 Amanda Leslie MD Family Practice 11/16/10 Amanda Leslie MD Family Practice 11/16/10 Renetta Garcia PA-C [address] [facility] [place] [address] Assigned PCP 08/10/20 09/28/20 Amanda Leslie MD Assigned PCP 09/29/20 12/16/20 Renetta Garcia PA-C [address] [facility] [place] [address] Assigned PCP 12/17/20 01/25/22 Amanda Leslie MD Assigned PCP 01/26/22 03/22/22 Renetta Garcia PA-C [address] [facility] [place] [address] Assigned PCP 03/23/22 09/06/23 [facility] [address] [address] [place] [id number] Assigned PCP 09/07/23 11/06/23 documented as of this encounter
--- OUTSIDE RECORDS SUMMARY | 2024-12-30 20:28 | XMS_ITS | Encounter Summary ---
Author Organization [facility] Address [address] [place] [address] Care Team Providers Care Swim Coach Name Role Phone Amanda Leslie MD Primary Care Provider [phone] Reason for Visit * Reason Comments APPOINTMENT REQUEST MRI Results Encounter Details Date Type Department Care Team (Late st Contact Info) Description 12/03/2024 Telephone [facility] Orthopedic [facility] [address] [place] [address] Ann Marie Mandujano MD [address] [facility] [facility] [address] [place], [place] [address] APPOINTMENT REQUEST (MRI Results) Social History Tobacco Use Types Packs/Day Years [...] on file documented as of this encounter Nursing Notes * Peg Paige RN - 12/06/2024 12:32 PM CDT Patient offered 12/13 at 3:30 pm and knows she is being double booked so it might be a longer wait. She will call with any further questions or concerns before that. * Kristin Siddiqui - 12/03/2024 11:24 AM CDT GENERAL QUESTIONS How may we help you today? Patient's MRI will be completed on 12/04/2024 at [facility]. Leighton scheduled an appointment on 12/20/2024 and been added to the wait list. Patient states I am notwaiting 3 weeks for results, that is ridiculous. She would like to receive results sooner and is OK with a phone, video or in-person visit. Patient is aware that provider is out of office the week of 12/06. Describe your symptoms/concerns: MRI results When did the issue start: NA Have you been seen for this recently?: Yes: Date: 11/29/2024 Provider: Ann Marie Mandujano MD If we are unable to reach you can we leave a detailed message on your voicemail? Yes If we are unable to reach you can we send you a message in myseekit? No [Fast Brim Pouncer/Manager Managing: Relay to patient; We make every effort to get back to you sameday, however it may take 1-2 business days depending on the nature of the communication.] documented in this encounter Plan of Treatment Upcoming Encounters Date Type Department Care Team (Latest Contact Info) Description 01/06/2025 5:00 PM CDT Appointment [facility] [address] [address] [place] [address] [place] [address] 01/10/2025 1:00 PM CDT Appointment [facility] [place] [address] [facility] [place] [address] Ann Marie Mandujano MD [address] [facility] [place] [address] 01/10/2025 3:00 PM CDT Appointment [facility] [place] [address] [place] [address] [place] [address] [place] [address] 01/13/2025 5:00 PM CDT Appointment [facility] [place] [address] [place] [address] [place] [address] [place] [address] 02/08/2025 12:25 PM ADVISER SALES Hospital Encounter [facility] [address] [place] [address] Juan Shelley MD [address] [place] [address] 02/08/2025 12:25 PM ADVISER SALES - 02/08/2025 2:20 PM ADVISER SALES Surgery [facility] [address] [place] [address] Juan Shelley MD [address] [place] [address] [place] [address] Shoulder Arthroscopic Rotator Cuff Repair 02/15/2025 11:30 AM ADVISER SALES Appointment [facility] [place] [address] [place] [address] [place] [address] [place] [address] 02/17/2025 2:45 PM ADVISER SALES Appointment [facility] [place] [address] [place] [address] [place] [address] [place] [address] 02/18/2025 2:40 PM ADVISER SALES Appointment [facility] [place] [address] [place] [address] Juan Shelley MD [address] [facility] [place] [address] 02/21/2025 3:00 PM ADVISER SALES Appointment [facility] [place] [address] [place] [address] [place] [address] [place] [address] 02/24/2025 2:45 PM ADVISER SALES Appointment [facility] [place] [address] [place] [address] [place] [address] [place] [address] 02/28/2025 3:00 PM ADVISER SALES Appointment [facility] [place] [address] [place] [address] [place] [address] [place] [address] 03/03/2025 2:45 PM ADVISER SALES Appointment [facility] [place] [address] [place] [address] [place] [address] [place] [address] 03/07/2025 3:00 PM ADVISER SALES Appointment [facility] [address] [address] [place] [address] [place] [address] 03/11/2025 3:00 PM ADVISER SALES Appointment [facility] [address] [address] [place] [address] [place] [address] 03/14/2025 3:00 PM ADVISER SALES Appointment [facility] [place] [address] [place] [address] [place] [address] [place] [address] 03/18/2025 3:15 PM ADVISER SALES Appointment [facility] [place] [address] [place] [address] [place] [address] [place] [address] 03/21/2025 3:00 PM ADVISER SALES Appointment [facility] [place] [address] [place] [address] [place] [address] [place] [address] 03/24/2025 2:45 PM ADVISER SALES Appointment [facility] [place] [address] [place] [address] [place] [address] [place] [address] 03/25/2025 2:40 PM ADVISER SALES Appointment [facility] [place] [address] [place] [address] Juan Shelley MD [address] [facility] [place] [address] 03/28/2025 3:00 PM ADVISER SALES Appointment [facility] [place] [address] [place] [address] [place] [address] [place] [address] 04/04/2025 3:00 PM ADVISER SALES Appointment [facility] [place] [address] [place] [address] [place] [address] [place] [address] 04/11/2025 3:00 PM ADVISER SALES Appointment [facility] [place] [address] [place] [address] [place] [address] [place] [address] 06/08/2025 2:40 PM CDT Appointment [facility] Orthopedic [facility] [address] [place] [address] Juan Shelley MD [address] [place] [address] Scheduled Procedures Name Priority Associated Diagnoses Date/Ti me ARTHROSCOPIC REPAIR ROTATOR CUFF SHOULDER SMALL Traumatic complete tear of right rotator cuff, initial encounter 02/08/2025 12:25 PM ADVISER SALES documented as of this encounter Visit Diagnoses Not on filedocumented in this encounter Care Teams Swim Coach Relationship Specialty Start Date End Date Amanda Leslie MD [address] [phone] PCP - General 05/04/15 documented as of this encounter
--- OUTSIDE RECORDS SUMMARY | 2024-12-30 20:29 | XMS_ITS | Encounter Summary ---
[facility] Address [address] [place] [address] Care Team Providers Care Hvac R Tech Name Role Phone Amanda Leslie MD Primary Care Provider [phone] Encounter Details Date Type Department Care Team (Latest Contact Info) Description 12/23/2024 Orders Only [facility] DEPARTMENT Provider, [place] [address] Social History Tobacco Use Types Packs/Day Years [...] 5:00 PM CDT Appointment [facility] [place] [id number] [facility] [place] [address] [place] [address] [place] [id number] 01/10/2025 1:00 PM CDT Appointment [facility] [place] [address] [place] [address] [place] [id number] Ann Marie Mandujano MD [address] [place] [address] [place] [id number] 01/10/2025 3:00 PM CDT Appointment [facility] [place] [address] [place] [address] [place] [address] [place] [address] 01/13/2025 5:00 PM CDT Appointment [facility] [place] [address] [place] [address] [place] [address] [place] [address] 02/08/2025 12:25 PM DEVIL DOG Hospital Encounter [facility] [address] [place] [address] Juan Shelley MD [address] [facility] [address] 02/08/2025 12:25 PM DEVIL DOG - 02/08/2025 2:20 PM DEVIL DOG Surgery [facility] [address] [place] [address] Juan Shelley MD [address] [place] [address] Shoulder Arthroscopic Rotator Cuff Repair 02/15/2025 11:30 AM DEVIL DOG Appointment [facility] [place] [address] [place] [address] [place] [address] [place] [address] 02/17/2025 2:45 PM DEVIL DOG Appointment [facility] [place] [address] [place] [address] [place] [address] [place] [address] 02/18/2025 2:40 PM DEVIL DOG Appointment [facility] Orthopedic [facility] [address] [place] [address] Juan Shelley MD [address] [facility] [place] [address] 02/21/2025 3:00 PM DEVIL DOG Appointment [facility] [place] [address] [place] [address] [place] [address] [place] [address] 02/24/2025 2:45 PM DEVIL DOG Appointment [facility] Physical Therapy [place] [address] [place] [address] [place] [address] [place] [address] 02/28/2025 3:00 PM DEVIL DOG Appointment [facility] [place] [address] [place] [address] [place] [address] [place] [address] 03/03/2025 2:45 PM DEVIL DOG Appointment [facility] [place] [address] [place] [address] [place] [address] [place] [address] 03/07/2025 3:00 PM DEVIL DOG Appointment [facility] [place] [address] [place] [address] [place] [address] [place] [address] 03/11/2025 3:00 PM DEVIL DOG Appointment [facility] [place] [address] [place] [address] [place] [address] [place] [address] 03/14/2025 3:00 PM DEVIL DOG Appointment [facility] [address] [address] [place] [address] [place] [address] 03/18/2025 3:15 PM DEVIL DOG Appointment [facility] [place] [address] [place] [address] [place] [address] [place] [address] 03/21/2025 3:00 PM DEVIL DOG Appointment [facility] [address] [address] [place] [address] [place] [address] 03/24/2025 2:45 PM DEVIL DOG Appointment [facility] [address] [address] [place] [address] [place] [address] 03/25/2025 2:40 PM DEVIL DOG Appointment [facility] [place] [address] [place] [address] [place] [address] Juan Shelley MD [address] [place] [address] 03/28/2025 3:00 PM DEVIL DOG Appointment [facility] [place] [address] [place] [address] [place] [address] [place] [id number] 04/04/2025 3:00 PM DEVIL DOG Appointment [facility] [place] [address] [place] [address] [place] [address] [place] [id number] 04/11/2025 3:00 PM DEVIL DOG Appointment [facility] [place] [address] [place] [address] [place] [address] [place] [id number] 06/08/2025 2:40 PM CDT Appointment [facility] Orthopedic [facility] [address] [place] [address] Juan Shelley MD [address] [place], [place] [address], [place] [address] Scheduled Procedures Name Priority Associated Diagnoses Date/Ti me ARTHROSCOPIC REPAIR ROTATOR CUFF SHOULDER SMALL Traumatic complete tear of right rotator cuff, initial encounter 02/08/2025 12:25 PM DEVIL DOG documented as of this encounter Procedures Procedure Name Priority Date/Time Associated Diagnosis Comments MRI-SCAN 12/23/2024 documented in this encounter Results * MRI-SCAN (12/23/2024) us Interface Provider DUMMY/OTHER/AR Final Resu lt documented in this encounter Visit Diagnoses Not on filedocumented in this encounter Care Teams Hvac R Tech Relationship Specialty Start Date End Date Amanda Leslie MD [address] [address] PCP - General 05/04/15 documented as of this encounter
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
--- OUTSIDE RECORDS SUMMARY | 2024-12-30 20:29 | XMS_ITS | Encounter Summary ---
Author Organization [place] Address [address] [place] [address]. [place] [address] Care Team Providers Care It Operations Specialist Name Role Phone Amanda Leslie MD Primary Care Provider Unavailab Aldo Dumont MD Primary Care Provider Unavailable Amanda Leslie MD Primary Care Provider Unavailab Aldo Dumont MD Primary Care Provider Unavailable Amanda Leslie MD Unavailable Unavailable Amanda Leslie MD Unavailable Unavailable Amanda Leslie MD Primary Care Provider Unavailab Amanda Duke MD Unavailable Unavailable Amanda Leslie MD Unavailable Unavailable Renetta Garcia PA-C Unavailable [phone] Amanda Leslie MD Unavailable Unavailable Renetta GarciaC Unavailable [phone] [facility] Primary Ca re Provider Amanda Leslie MD Unavailable Unavailable Renetta Garcia PA-C Unavailable [phone] [facility] Unavailabl e Encounter Details Date Type Department Care Team (Late st Contact Info) Description 03/09/2009 Abstract M [facility] [address], [address] [place] [address] [place] [address] [place] [address] Moderate Major Depression (H) (Primary Dx) Social History Tobacco Use Types Packs/Day Years Used Date Smoking Tobacco: Every Day Comments:1/2 pk daily Alcohol Use Standard Drinks/Week Comments No 0 (1 standard drink = 0.6 oz pur e alcohol) Comments No Sex and Gender Information Value Date Recorded Sex Assigned at Not on file 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 Gender Identity Not on file Sexual Orientation Not on file documented as of this encounter Plan of Treatment Not on file documented as of this encounter Visit Diagnoses Diagnosis Moderate major depression (H)- Primary Major depressive disorder, single episode, moderate documented in this encounter Care Teams It Operations Specialist Relationship Specialty Start Date End Date Amanda Leslie MD PCP - General 03/28/03 04/23/09 Aldo Magaña MD PCP - General Family Practice 04/24/09 07/04/09 Amanda Leslie MD PCP - General Family Practice 07/05/09 11/04/10 Aldo Magaña MD PCP - General Family Practice 11/05/10 11/15/10 Amanda Leslie MD PCP - General Family Practice 11/16/10 09/24/21 Amanda Leslie MD PCP - Assigned PCP 06/23/11 05/19/18 [facility] [address] [place] [address] PCP - General 09/25/21 Amanda Leslie MD Family Practice 11/16/10 Amanda Leslie MD Family Practice 11/16/10 Amanda Leslie MD Assigned PCP 12/19/11 08/09/20 Renetta Garcia PA-C [address] [place] [address] Assigned PCP 08/10/20 09/28/20 Amanda Leslie MD Assigned PCP 09/29/20 12/16/20 Renetta Garcia PA-C [address] [place] [address] Assigned PCP 12/17/20 01/25/22 Amanda Leslie MD Assigned PCP 01/26/22 03/22/22 Renetta Garcia PA-C [address] [place] [address] Assigned PCP 03/23/22 09/06/23 [facility] [address] [place] [address] Assigned PCP 09/07/23 11/06/23 documented as of this encounter
--- OUTSIDE RECORDS SUMMARY | 2024-12-30 20:29 | XMS_ITS | Encounter Summary ---
Author Organization [facility] Address [address] [address] Care Team Providers Care Foundry Metallurgist Name Role Phone Amanda Leslie MD Primary Care Provider Reason for Referral * Procedure/Equipment (Routine) - Incomplete Specialty Diagnoses / Procedures Referred By Chaparro t Referred To Contact Diagnoses Traumatic complete tear of right rotator cuff, initial encounter Procedures Case Request OR - Orthopedic Surgery: Shoulder Arthroscopic Rotator Cuff Repair Juan Shelley MD [address] [place] [address] [place] Delgado [address] Phone: tel: fax: Referral ID Status Reason Start Date Expiration Date V isits Requested Visits Authorized [id number] Incomplete 12/22/2024 03/23/2026 1 1 Encounter Details Date Type Department Care Team (Late st Contact Info) Description 12/22/2024 Notes/Orders [facility] [place] [address] [place] [address] [place], [place] [address] Juan Shelley MD [address] [facility] [place] Delgado [phone] Traumatic complete tear of right rotator cuff, [...] 5:00 PM CDT Appointment [facility] [place] [address] [place] [address] [place] [address] [address] [place] [address] 01/10/2025 1:00 PM CDT Appointment [facility] [place] [address] [place] [address] Ann Marie Mandujano MD [address] [facility] [address] [place] [address] 01/10/2025 3:00 PM CDT Appointment [facility] [place] [address] [place] [address] [place] [address] [address] [place] [address] 01/13/2025 5:00 PM CDT Appointment [facility] [place] [address] [place] [address] [place] [address] [address] [place] [address] 02/08/2025 12:25 PM AUTOMATIC HEMMER Hospital Encounter [facility] [address] [place] [address] Juan Shelley MD [address] [facility] [place] [address] 02/08/2025 12:25 PM AUTOMATIC HEMMER - 02/08/2025 2:20 PM AUTOMATIC HEMMER Surgery [facility] [address] [place] [address] Juan Shelley MD [address] [facility] [place] [address] Shoulder Arthroscopic Rotator Cuff Repair 02/15/2025 11:30 AM AUTOMATIC HEMMER Appointment [facility] [place] [address] [place] [address] [place] [address] [address] [place] [address] 02/17/2025 2:45 PM AUTOMATIC HEMMER Appointment [facility] [place] [address] [place] [address] [place] [address] [address] [place] [address] 02/18/2025 2:40 PM AUTOMATIC HEMMER Appointment [facility] [place] [address] [facility] [place] [address] Juan Shelley MD [address] [facility] [place] [address] 02/21/2025 3:00 PM AUTOMATIC HEMMER Appointment [facility] [place] [address] [place] [address] [place] [address] [address] [place] [address] 02/24/2025 2:45 PM AUTOMATIC HEMMER Appointment [facility] [address] [address] [place] [address] [address] [place] [address] 02/28/2025 3:00 PM AUTOMATIC HEMMER Appointment [facility] [place] [address] [place] [address] [place] [address] [place] [address] 03/03/2025 2:45 PM AUTOMATIC HEMMER Appointment [facility] [place] [address] [place] [address] [place] [address] [place] [address] 03/07/2025 3:00 PM AUTOMATIC HEMMER Appointment [facility] [address] [place] [address] [place] [address] [place] [address] 03/11/2025 3:00 PM AUTOMATIC HEMMER Appointment [facility] [place] [address] [place] [address] [place] [address] [place] [address] 03/14/2025 3:00 PM AUTOMATIC HEMMER Appointment [facility] [address] [address] [place] [address] [address] [place] [address] 03/18/2025 3:15 PM AUTOMATIC HEMMER Appointment [facility] [address] [address] [place] [address] [address] [place] [address] 03/21/2025 3:00 PM AUTOMATIC HEMMER Appointment [facility] [address] [address] [place] [address] [address] [place] [address] 03/24/2025 2:45 PM AUTOMATIC HEMMER Appointment [facility] [place] [address] [place] [address] [place] [address] [address] [place] [address] 03/25/2025 2:40 PM AUTOMATIC HEMMER Appointment [facility]opedic [facility] [address] [place] [address] Juan Shelley MD [address] [place] [address] [place] [address] 03/28/2025 3:00 PM AUTOMATIC HEMMER Appointment [facility] [place] [address] [place] [address] [place] [address] [place] [address] 04/04/2025 3:00 PM AUTOMATIC HEMMER Appointment [facility] [place] [address] [place] [address] [place] [address] [address] [place] [address] 04/11/2025 3:00 PM AUTOMATIC HEMMER Appointment [facility] [place] [address] [place] [address] [place] [address] [address] [place] [address] 06/08/2025 2:40 PM CDT Appointment [facility]opedic [facility] [address] [place] [address] Juan Shelley MD [address] [place], [place] [address]land [place] [address] Scheduled Procedures Name Priority Associated Diagnoses Date/Ti me ARTHROSCOPIC REPAIR ROTATOR CUFF SHOULDER SMALL Traumatic complete tear of right rotator cuff, initial encounter 02/08/2025 12:25 PM AUTOMATIC HEMMER documented as of this encounter Visit Diagnoses Diagnosis Traumatic complete tear of right rotator cuff, initial encounter- Primary Traumatic complete tear of right rotator cuff- Primary Traumatic complete tear of right rotator cuff, initial encounter documented in this encounter Care Teams Foundry Metallurgist Relationship Specialty Start Date End Date Amanda Leslie MD [address] [address] PCP - General 05/04/15 documented as of this encounter
[2024-12-30 20:40] VITALS: BP 126/79; PULSE 104; RESP 16; TEMP 37.1; O2SAT 98; BMI 29.3
--- NOTE | 2024-12-30 20:55 | ED.ABDPAIN ---
HPI - Abdominal Pain General Chief Complaint: Abdominal Pain Stated Complaint: abdominal pain Time Seen by Provider: 12/30/24 20:48 History of Present Illness HPI narrative: Patient is a 54-year-old woman comes in today with 4 days of diffuse lower abdominal pain. She has had no fevers no chills no night sweats. She has had change in her stool to more soft stool. She does have chronic abdominal issues but her symptoms seem to have worsened over the last several days. She has had no nausea vomiting. He has had no chest pain no shortness of breath. Her past surgical history includes abdominal hysterectomy with unilateral salpingo oophorectomy. She describes no dysuria. She does take with sounds like omeprazole for chronic reflux and dyspepsia. Pain is 8/10 localizes to the mid lower abdomen. Related Data Home Medications ?Medication ?Instructions ?Recorded ?Confirmed amitriptyline 50 mg tablet 45 mg PO DAILY 05/04/24 12/30/24 omeprazole magnesium 20 mg 20 mg PO DAILY 05/04/24 12/30/24 tablet,delayed release (Prilosec OTC) diclofenac sodium 1 % topical gel 2 g topical QID PRN pain 12/30/24 12/30/24 lorazepam 0.5 mg tablet 0.25 mg PO DAILY PRN anxiety 12/30/24 12/30/24 terconazole 0.4 % vaginal cream 1 appful vaginal QPM candidiasis 12/30/24 12/30/24 tobramycin 0.3 %-dexamethasone 0.1 1 drp ophthalmic (eye-right) 3XD 12/30/24 12/30/24 % eye drops,suspension Allergies Allergy/AdvReac Type Severity Reaction Status Date / Time azithromycin (From Zithromax) AdvReac Intermediate Nausea Verified 12/30/24 20:44 Review of Systems Status of ROS Reports: 10 or more systems reviewed and unremarkable except as noted in History and below [facility] Social History Smoking Status: Current every day smoker What tobacco products do you use: cigarettes Smoking packs per day: 0.5 Smoking cigarettes per day: 10.0 Do you use any of these nicotine containing products: None Second hand tobacco smoke exposure: No How often do you have a drink containing alcohol: never AUDIT-C Alcohol total score: 0 Non-prescribed substance use: denies use Exam Narrative: Exam Narrative: EXAM GENERAL: Patient appears comfortable and well. EYES: No scleral icterus. LYMPH: No supraclavicular or cervical lymphadenopathy. SKIN: Visible skin seen during exam normal or with benign process only. EXT: No dependent lower extremity pedal edema. HEART: Regular rate and rhythm with no murmurs, rubs, or gallops. LUNGS: Clear to auscultation bilaterally with no crackles or wheezes. ABD: Mildly distended with hypoactive bowel sounds. Tenderness noted in the left and right lower quadrants. PSYCH: Good eye contact, speech is not pressured. Const: Vital Signs, click to edit/add: Vital Signs - 24 hr 12/30/24 20:40 Temperature 98.7 F Pulse Rate [Right Pulse Oximeter] 104 H Respiratory Rate 16 Blood Pressure [Ri ght Upper Arm] 126/79 Pulse Oximetry 98 Oxygen Delivery Me thod Room Air Course Course ED Course: Patient presents with abdominal pain of 4 days duration. Will proceed with CBC comprehensive metabolic panel lipase lactate UA CT abdomen pelvis. Vital Signs Vital signs: Initial Vital Signs Temperature 98.7 F 12/30/24 20:40 Temperature Source Temporal Artery Scan 12/30/24 20:40 Pulse Rate 104 H 12/30/24 20:40 Pulse Rhythm Regular 12/30/24 20:40 Pulse Strength 3+ Normal 12/30/24 20:40 Respiratory Rate 16 12/30/24 20:40 Blood Pressure 126/79 12/30/24 20:40 Blood Pressure Mean 94 12/30/24 20:40 Blood Pressure Position Sitting 12/30/24 20:40 Pulse Oximetry 98 12/30/24 20:40 Oxygen Delivery Method Room Air 12/30/24 20:40 Vital Signs Temperature 98.7 F 12/30/24 20:40 Pulse Rate 104 H 12/30/24 20:40 Respiratory Rate 16 12/30/24 20:40 Blood Pressure 126/79 12/30/24 20:40 Pulse Oximetry 98 12/30/24 20:40 Oxygen Delivery Method Room Air 12/30/24 20:40 Temperature 98.7 F 12/30/24 20:40 Pulse Rate 104 H 12/30/24 20:40 Respiratory Rate 16 12/30/24 20:40 Blood Pressure 126/79 12/30/24 20:40 Pulse Oximetry 98 12/30/24 20:40 Oxygen Delivery Method Room Air 12/30/24 20:40 MDM - Abdominal Pain MDM Narrative Medical decision making narrative: Patient is a 54-year-old woman who presents with lower abdominal pain. She has evidence of diverticulitis on her CT scan. She does have leukocytosis. She is eating and drinking. She is having no blood in her stool. I did discuss the findings with her and we did talk about hospitalization I do think is reasonable to give her try at home. She has had difficulties with antibiotics in the past but has tolerated amoxicillin products. I think it is reasonable to dose amoxicillin for the next 10 days ever follow-up with her primary physician. Patient does not tolerate Cipro or Flagyl by history. She declines any pain medication she will advance her diet activity as tolerated follow-up with her primary physician this coming week. Lab Data Labs: Lab Results 12/30/24 12/30/24 Range/Units 21:14 21:21 WBC 14.30 H (4.50-11.00) K/uL RBC 3.82 L (4.00-5.20) m/uL Hgb 12.1 (12.0-16.0) gm/dL Hct 35.7 (33.0-51.0) % MCV 94 (80-100) fL MCH 32 (26-34) pg MCHC 34 (32-36) gm/dL RDW Coeff of Maninder 11.4 L (11.5-15.5) % Plt Count 293 (140-440) K/uL Neut % (Auto) 73.1 H (42.0-72.0) % Lymph % (Auto) 15.7 L (20-44) % [place] % (Auto) 9.8 (0.0-11.0) % Eos % (Auto) 1.0 (0.0-7.0) % Baso % (Auto) 0.3 (0.0-3.0) % Neut # (Auto) 10.50 H (1.7-7.0) K/uL Lymph # (Auto) 2.20 (0.90-2.90) K/uL [place] # (Auto) 1.40 H (0.00-0.90) K/UL Eos # (Auto) 0.10 (0.00-0.50) K/uL Baso # (Auto) 0.00 (0.00-0.30) K/uL Abs Immat Gran (auto) 0.00 (0.00-0.30) K/uL Imm/Tot Granulo (auto) 0.1 % Sodium 134 L (135-149) mmol/L Potassium 3.8 (3.6-5.1) mmol/L Chloride 102 (96-114) mmol/L Carbon Dioxide 25 (20-32) mmol/L Anion Gap 7 (7-15) mEq/L BUN 18 (7-30) mg/dL Creatinine 1.0 (0.5-1.5) mg/dL Estimated Creat Clear 48.53 Estimated GFR 67 ml/min Glucose 99 (60-115) mg/dL Lactate 1.6 (0.5-1.9) mmol/L Calcium 9.5 (8.4-10.6) mg/dL Total Bilirubin 0.2 (0.1-1.5) mg/dL AST 28 (12-35) U/L ALT 36 H (4-35) U/L Alkaline Phosphatase 67 (40-150) U/L Total Protein 7.4 (6.0-8.3) g/dL Albumin 4.4 (3.3-5.0) g/dL Lipase 147 (23-300) U/L Urine Color Yellow (Yellow) Urine Appearance Clear (Clear) Urine pH 5.5 (5.0-8.5) Ur Specific [place] 1.010 (1.000-1.030) Urine Protein Negative (Negative) Urine Glucose (UA) Negative (Negative) Urine Ketones Negative (Negative) Urine Blood Trace-lysed A (Negative) Urine Nitrite Negative (Negative) Urine Bilirubin Negative (Negative) Urine Urobilinogen 0.2 (0.2-1.0) Ur Leukocyte Esterase Negative (Negative) Discharge Plan Discharge Clinical Impression: Diverticulitis Patient Disposition: Home, Self-Care Condition: Stable Instructions: Diverticulitis (ED) Additional Instructions: Augmentin which is amoxicillin product as directed Continue diet exercise as tolerated. Hydrate Tylenol and Motrin for pain Follow-up with your doctor as needed Activity Level: No Restrictions Discharge Diet: Regular Prescriptions: No Action terconazole 0.4 % cream 1 appful vaginal QPM lorazepam 0.5 mg tablet 0.25 mg PO DAILY PRN (Reason: anxiety) tobramycin-dexamethasone 0.3-0.1 % drops,suspension 1 drp ophthalmic (eye-right) 3XD diclofenac sodium 1 % gel 2 g topical QID PRN (Reason: pain) amitriptyline 50 mg tablet 45 mg PO DAILY omeprazole magnesium [Prilosec OTC] 20 mg tablet,delayed release (DR/EC) 20 mg PO DAILY Follow Up/Referrals: Glenny Koroma MD [Primary Care Provider, Family Practice] Stand Alone Forms: [employer] Info Instructions
--- NOTE | 2024-12-30 20:59 | CRLHL7_ITS ---
For Patients: As a result of the Cures Act, medical imaging exams and procedure reports are released immediately into your electronic medical record. You may view this report before your referring provider. If you have questions, please contact your health care provider. INDICATION: Lower abdominal pain x several days TECHNIQUE: CT Abdomen and pelvis with i.v. contrast. Coronal and sagittal reformats were obtained. CONTRAST: 76 mL Isovue 370 COMPARISON: None FINDINGS: Lower chest: Unremarkable. Liver: Unremarkable. Spleen: Unremarkable. Pancreas: Unremarkable. Gallbladder: Unremarkable. Kidney: Unremarkable. No kidney or ureteral stones or obstruction seen. Adrenal: Unremarkable. Bowel: The stomach, small bowel, and colon are unremarkable. The appendix is normal in appearance and size. Vascular: Unremarkable. Lymph: Small left para-aortic retroperitoneal lymph nodes are present measuring up to 8 mm. Peritoneum: Moderate wall thickening in the descending colon, diverticulosis and infiltration of the surrounding fat in the left pericolic gutter are noted. No pneumoperitoneum is seen. No significant ascites is noted. Pelvis: The patient is status post prior hysterectomy. Soft tissue: Unremarkable. Bone: Unremarkable for age. IMPRESSION: 1. Moderate wall thickening in the descending colon, diverticulosis and infiltration of the surrounding fat in the left pericolic gutter are noted. These findings are consistent with acute diverticulitis. No adjacent peridiverticular abscess is seen. Dictated by Nick Moreno MD @ 12/30/2024 10:05:20 PM Please note that all CT scans at this facility use dose modulation, iterative reconstruction, and/or weight-based dosing when appropriate to reduce radiation dose to as low as reasonably achievable. Dictated by: Nick Moreno MD @ 12/30/2024 22:05:26 (Electronically Signed)
[2024-12-30 21:19] LABS: Appearance Urine Clear (Clear)
[2024-12-30 21:27] LABS: Lactate* 1.6 mmol/L (0.5-1.9)
[2024-12-30 21:30] LABS: Hematocrit* 35.7 % (33.0-51.0); Hemoglobin* 12.1 gm/dL (12.0-16.0); Immature Granulocytes Pct Auto 0.1 %; Mean Corpuscular HGB Conc 34 gm/dL (32-36); Mean Corpuscular Hemoglobin 32 pg (26-34); Mean Corpuscular Volume 94 fL (80-100); RDW Coefficient of Variation % 11.4 % (11.5-15.5); Red Blood Count* 3.82 m/uL (4.00-5.20); White Blood Count* 14.30 K/uL (4.50-11.00)
[2024-12-30 21:35] LABS: Immature Granulocytes Abs Auto 0.00 K/uL (0.00-0.30); Lymphocytes Absolute Auto 2.20 K/uL (0.90-2.90)
[2024-12-30 21:36] LABS: Slide Review Reflex No
[2024-12-30 21:42] LABS: Albumin* 4.4 g/dL (3.3-5.0); Chloride* 102 mmol/L (96-114); Potassium* 3.8 mmol/L (3.6-5.1); Sodium* 134 mmol/L (135-149)
[2024-12-30 21:45] LABS: Alanine Aminotransferase* 36 U/L (4-35); Alkaline Phosphatase* 67 U/L (40-150); Anion Gap 7 mEq/L (7-15); Aspartate Amino Transferase* 28 U/L (12-35); Bilirubin Total* 0.2 mg/dL (0.1-1.5); Blood Urea Nitrogen* 18 mg/dL (7-30); Carbon Dioxide* 25 mmol/L (20-32); Creatinine* 1.0 mg/dL (0.5-1.5); Est. Creatinine Clearance* 48.53; Estimated Glomerular Filt Rate 67 ml/min; Total Protein* 7.4 g/dL (6.0-8.3)
[2024-12-30 21:46] LABS: Calcium* 9.5 mg/dL (8.4-10.6); Glucose* 99 mg/dL (60-115)
[2024-12-30 22:42] VITALS: BP 123/64; PULSE 90; RESP 18; TEMP 37.4; O2SAT 96
== END 2024-12-30 22:44 | disposition home or self-care (01) ==
PROVIDERS: Emergency Provider Internal Medicine; PCP Family Medicine
DX: K57.92 Diverticulitis of intestine, part unspecified, without perforation or abscess without bleeding (principal)
CPT/HCPCS: 36415; 74177; 80053; 81001; 81003; 83605; 83690; 85025; 99283; 99284; 99285; Q9967